=== PATIENT | female | born 1940 | race Caucasian/White ===

== ENCOUNTER 2024-01-14 12:14 | Emergency (ER) | payer MEDICARE, SELFPAY ==
[2024-01-14] VITALS (20 sets, daily range): BP systolic 159–210; BP diastolic 70–96; PULSE 61–81; TEMP 36.8; O2SAT 97–99; BMI 25.8
--- NOTE | 2024-01-14 12:26 | ECG_ITS ---
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
[2024-01-14 12:40] LABS: Basophils Absolute Auto 0.1 10^3/uL (0.0-0.1); Eosinophils Absolute Auto 0.1 10^3/uL (0.0-0.7); Eosinophils Percent Auto 1.3 % (0.9-7.0); Hemoglobin 14.5 g/dL (12.0-16.0); Immature Granulocytes Abs Auto 0.01 10^3/uL (0.00-0.03); Immature Granulocytes Pct Auto 0.1 % (0.0-0.5); Lymphocytes Absolute Auto 1.6 10^3/uL (1.2-3.8); Mean Corpuscular HGB Conc 31.5 g/dL (29.9-35.2); Mean Corpuscular Hemoglobin 29.7 pg (26.7-34.0); Mean Corpuscular Volume 94.1 fL (81.0-99.0); Mean Platelet Volume 10.4 fL (9.5-13.5); Monocytes Absolute Auto 0.4 10^3/uL (0.3-0.8); Monocytes Percent Auto 6.6 % (1.7-12.0); Neutrophils Absolute Auto 4.5 10^3/uL (1.4-6.5); Platelet Count 251 10^3/uL (150-450); Red Blood Count 4.89 10^6/uL (4.20-5.40); Red Cell Distribution Width 13.2 % (11.0-15.0); White Blood Count 6.7 10^3/uL (4.0-11.0)
[2024-01-14 12:57] LABS: Alanine Aminotransferase 21 U/L (14-59); Albumin Globulin Ratio 1.1; Albumin Level 3.9 g/dL (3.4-5.0); Alkaline Phosphatase 64 U/L (46-116); Anion Gap 10.7; Aspartate Amino Transferase 16 U/L (15-37); BUN Creatinine Ratio 18.8; Bilirubin Total 0.6 mg/dL (0.2-1.0); Calcium 9.2 mg/dL (8.5-10.1); Carbon Dioxide 31.6 mmol/L (21.0-32.0); Chloride 102 mmol/L (98-107); Estimated GFR (African America >60 (>=60); Estimated GFR (Non-African Ame >60 (>=60); Globulin 3.7 g/dL; Glucose 116 mg/dL (74-106); Potassium 4.3 mmol/L (3.5-5.1); Sodium 140 mmol/L (136-145); Total Protein 7.6 g/dL (6.4-8.2); Troponin I High Sensitivity 5.7 pg/mL (4.0-51.3)
--- NOTE | 2024-01-14 13:41 | ED.GENADUL1 ---
HPI HPI - General Adult General Chief complaint: Recheck/Abnormal Lab/Rx Stated complaint: HIGH BLOOD PRESSURE Time Seen by Provider: 01/14/24 12:25 Source: patient Mode of arrival: walk-in History of Present Illness HPI narrative: The patient is 83 years old female coming to the ER to be evaluated for high blood pressure, she noted that her blood pressure has been elevated since she took hip injection almost on 31 December, the patient denies any nausea vomiting or any chest pain but she did mention having some dizziness sometimes, no upper or lower extremity weakness no other concerns the patient also denies any decreased p.o. intake nausea vomiting or any diarrhea. But she mentioned that she had at least 4 injection in her right hip because of pain. The patient mentioned that she does not usually go to her primary care doctor regularly and the last time she went to a fair to measure her blood pressure a year ago she did have some elevated blood pressure. Although her daughter at the bedside mentioned that sometimes she runs low Related Data Previous Rx's ?Medication ?Instructions ?Recorded amlodipine 2.5 mg tablet 2.5 mg PO DAILY #7 tabs 01/14/24 Allergies Allergy/AdvReac Type Severity Reaction Status Date / Time No Known Drug Allergies Allergy Verified 01/14/24 12:23 Opioid HPI Opioid Management Most Recent Opioid Data: No Data to Display Review of Systems ROS Status of ROS 10 or more systems reviewed and unremarkable except as noted in history and below Exam Narrative Exam Narrative: Nurses notes and vital signs reviewed and patient is not hypoxic. General: Well-appearing and in no apparent distress. Skin: Warm, dry, no pallor noted. No rash. Head: Normocephalic, atraumatic. Neck: Supple, non-tender. Eye: Pupils are equal, round and EOMI. No scleral icterus. Ears, Nose, Mouth, and Throat: TM are clear, no nasal mucosal hypertrophy. Oral mucosa is moist, no posterior oropharynx erythema, uvula is mid-line Cardiovascular: Regular Rate and Rhythm without murmur, gallop or rub. Respiratory: No accessory muscle use or respiratory distress. Lungs are clear to auscultation, no wheezing, rales or rhonchi Chest Wall: no tenderness Back: No midline thoracic or lumbar vertebral tenderness. No CVA tenderness Musculoskeletal: normal ROM, no calf or popliteal tenderness, no lower extremity edema/swelling GI: Abdomen is soft, non-distended. Normal bowel sounds. No masses appreciated. No tenderness to palpation. No rebound, guarding, or rigidity noted. Neurological: A&O x4. No cranial nerve dysfunction observed. No truncal ataxia. Moves all extremities. Sensation intact. Psychiatric: Cooperative and interactive. Normal mood and affect. Constitutional Vital Signs, click to edit/add: Last Vital Signs Temp 98.2 F 01/14/24 12:19 Pulse 67 01/14/24 13:07 Resp 18 01/14/24 12:19 BP 163/75 H 01/14/24 13:07 Pulse Ox 97 01/14/24 12:19 O2 Del Method Room Air 01/14/24 12:19 Course Vital Signs Vital signs: Vital Signs Temperature 98.2 F 01/14/24 12:19 Pulse Rate 81 01/14/24 12:19 Respiratory Rate 18 01/14/24 12:19 Blood Pressure 198/82 H 01/14/24 12:19 Pulse Oximetry 97 01/14/24 12:19 Oxygen Delivery Method Room Air 01/14/24 12:19 Temperature 98.2 F 01/14/24 12:19 Pulse Rate 67 01/14/24 13:07 Respiratory Rate 18 01/14/24 12:19 Blood Pressure 163/75 H 01/14/24 13:07 Pulse Oximetry 97 01/14/24 12:19 Oxygen Delivery Method Room Air 01/14/24 12:19 Medical Decision Making [facility] Narrative Medical decision making narrative: The patient EKG in the ER showing sinus rhythm with a heart rate of [address] elevation or depression The patient CBC and chemistry showed no acute significant pathology Orthostatic showed no acute pathology and the patient is not having any dizziness in the ER It was noted that the patient had multiple reading since at least the last 3 weeks they are all in the 180 in the 190 systolic, the patient instructed to keep measuring her blood pressure at least once a day and to take her blood pressure properly She is to hydrate very well The patient will be started on amlodipine 2.5 mg daily and she will keep a track of her blood pressure medication readings, the patient also will follow-up with her primary care doctor within a week. In case of any detected side effect of the blood pressure medication including dizziness the patient to stop the medication and follow-up with us or the primary care The patient is to follow up with primary care physician in next 2-3 days or to return to the emergency department should any of the signs or symptoms worsen or new symptoms develop. The patient agrees with the following Diagnosis and Treatment plan and the patient will be discharged home. Lab Data Labs: Lab Results 01/14/24 Range/Units 12:34 WBC 6.7 (4.0-11.0) 10^3/uL RBC 4.89 (4.20-5.40) 10^6/uL Hgb 14.5 (12.0-16.0) g/dL Hct 46.0 (36.0-48.0) % MCV 94.1 (81.0-99.0) fL MCH 29.7 (26.7-34.0) pg MCHC 31.5 (29.9-35.2) g/dL RDW 13.2 (11.0-15.0) % Plt Count 251 (150-450) 10^3/uL MPV 10.4 (9.5-13.5) fL Neut % (Auto) 67.0 (43.0-75.0) % Lymph % (Auto) 24.0 (20.5-60.0) % [place] % (Auto) 6.6 (1.7-12.0) % Eos % (Auto) 1.3 (0.9-7.0) % Baso % (Auto) 1.0 (0.2-2.0) % Neut # (Auto) 4.5 (1.4-6.5) 10^3/uL Lymph # (Auto) 1.6 (1.2-3.8) 10^3/uL [place] # (Auto) 0.4 (0.3-0.8) 10^3/uL Eos # (Auto) 0.1 (0.0-0.7) 10^3/uL Baso # (Auto) 0.1 (0.0-0.1) 10^3/uL Abs Immat Gran (auto) 0.01 (0.00-0.03) 10^3/uL Imm/Tot Granulo (auto) 0.1 (0.0-0.5) % Sodium 140 (136-145) mmol/L Potassium 4.3 (3.5-5.1) mmol/L Chloride 102 (98-107) mmol/L Carbon Dioxide 31.6 (21.0-32.0) mmol/L Anion Gap 10.7 BUN 16.0 (7.0-18.0) mg/dL Creatinine 0.85 (0.55-1.02) mg/dL Est GFR ( Amer) >60 (>=60) Est GFR (Non-Af Amer) >60 (>=60) BUN/Creatinine Ratio 18.8 Glucose 116 H (74-106) mg/dL Calcium 9.2 (8.5-10.1) mg/dL Total Bilirubin 0.6 (0.2-1.0) mg/dL AST 16 (15-37) U/L ALT 21 (14-59) U/L Alkaline Phosphatase 64 (46-116) U/L Troponin I High Sens 5.7 (4.0-51.3) pg/mL Total Protein 7.6 (6.4-8.2) g/dL Albumin 3.9 (3.4-5.0) g/dL Globulin 3.7 g/dL Albumin/Globulin Ratio 1.1 Discharge Plan Discharge Stand Alone Forms: Portal Instructions Chief Complaint: Recheck/Abnormal Lab/Rx Clinical Impression: Benign essential HTN Patient Disposition: Home, Self-Care Time of Disposition Decision: 13:40 Condition: Good Prescriptions / Home Meds: New amlodipine 2.5 mg tablet 2.5 mg PO DAILY Qty: 7 0RF Print Language: Setswana Instructions: Chronic Hypertension (DC) Referrals: CONCEPCIÓN DELGADO [Primary Care Provider] - 1 week
[2024-01-14] MEDS: AMLODIPINE BESYLATE 5 MG TABLET 2.5 MG PO (14:01)
== END 2024-01-14 14:19 | disposition home or self-care (01) ==
PROVIDERS: Emergency Provider Emergency Medicine; PCP Internal Medicine
DX: I10 Essential (primary) hypertension (principal)
CPT/HCPCS: 36415; 80053; 84484; 85025; 93005; 99284

== ENCOUNTER 2024-04-29 11:29 | Outpatient (OUT) | payer MEDICARE, SELFPAY ==
--- NOTE | 2024-04-29 11:42 | XR_ITS ---
[address] [address] Patient Name: TERESA SMALL MRN: [id number] date: 1940 Sex: F Assigned Patient Location: [facility] Current Patient Location: Accession/Order Number: [id number] Exam Date: 04/29/2024 11:45 Report Date: 04/30/2024 09:19 At the request of: DYLON SARMIENTO Procedure: XR wrist LT min 3V PROCEDURE: XR wrist LT min 3V COMPARISON: None. HISTORY: Left Wrist Sprain S63.502A FINDINGS: BONES:No acute fracture or dislocation. Moderate degenerative changes along the medial carpus with joint space narrowing marginal osteophyte formation SOFT TISSUES:Negative. No visible soft tissue swelling. EFFUSION:None visible. OTHER: Negative. XR/XR wrist LT min 3V IMPRESSION: Osteoarthritis with no acute fracture Electronically authenticated by: DHIRAJ NGUYEN Date: 04/30/2024 09:19
--- OUTSIDE RECORDS SUMMARY | 2024-04-29 11:52 | XMS_ITS | CCD ---
Author Organization [facility] Care Team Providers Care Sql Tech Name Role Phone Rylee Henning Unavailable DR DEJON ZHOU Primary Care Unavailable DANYEL GUERRERO Consulting Unavailable PAY ., DR BROWN Attending Unavailable PAY ., DR BROWN Admitting Unavailable LARS PAGE Consulting Unavailable VALENTINE JEROME Attending Unavailable JUSTUS, VALENTINE Admitting Unavailable DANNY, DR BEEBE Primary Care Unavailable ANGEL GARCIA Consulting Unavailable VALENTINE JEROME Consulting Unavailable Dejon Zhou MD Primary Care Provider DEJON ZHOU Primary Care Physician [phone] Angella Shoemaker Unavailable [phone] Merly, Caroline Wiley Attending Unavailable Weiss, Caroline T Referring Unavailable Weiss, Caroline T Admitting Unavailable Weiss, Caroline T Referring Unavailable Weiss, Caroline T Admitting Unavailable Weiss, Carolien T Attending Unavailable Weiss, Caroline T Admitting Unavailable Weiss, Caroline T Referring Unavailable Weiss, Caroline T Attending Unavailable Weiss, Caroline T Referring Unavailable Weiss, Caroline T Attending Unavailable Weiss, Caroline T Admitting Unavailable Weiss, Caroline T Admitting Unavailable Weiss, Caroline T Attending Unavailable Weiss, Caroline T Referring Unavailable WEISS, CAROLINE T Attending Unavailable MADALYNDHIRAJ Attending Unavailable WEISS, CAROLINE T Referring Unavailable MADALYNDHIRAJ Attending Unavailable WEISS, CAROLINE T Referring Unavailable WEISS, CAROLINE T Attending Unavailable WEISS, CAROLINE T Referring Unavailable WEISS, CAROLINE T Referring Unavailable HEMMER, DYLON Puentes Attending Unavailable WEISS, CAROLINE Wiley Attending Unavailable HEMMER, DYLON Puentes Attending Unavailable HEMMER, DYLON Puentes Attending Unavailable WEISS, CAROLINE T Referring Unavailable WEISS, CAROLINE T Attending Unavailable BLACKSTON, CLEO Wiley Attending Unavailable WEISS, CAROLINE T Referring Unavailable BLACKSTON, CLEO Wiley Attending Unavailable WEISS, CAROLINE T Referring Unavailable BLACKSTON, CLEO Wiley Attending Unavailable WEISS, CAROLINE T Referring Unavailable BLACKSTON, CLEO Wiley Attending Unavailable WEISS, CAROLINE T Referring Unavailable HEMMER, DYLON Puentes Attending Unavailable CAROLINE WEISS Attending Unavailable CAROLINE WEISS Referring Unavailable Allergies Allergy Classification Reported Allergen(s) Allergy Type Date of Onset Reaction(s) Facility (1 source) Fil[facility]-N 100 Drug allergy (disorder) 0 [facility] Repository (4 sources) Cortisone; Translations: [cortisone] Drug Allergy Lightheadedness (finding), Fatigue (finding) [facility] Comment on above: steroid cortisone in jection Medications Current Medications Medication Drug Class(es) Dates Sig (Normalized) Sig (Original) acetaminophen 325 mg oral tablet (2 sources) Start: 05-13-2020 take 2 tablets by mouth every four hours as needed for pain acetaminophen 325 mg Tab 650 mg = 2 tab(s), Oral, q4hr, PRN Pain/Fever, Refills(s) 0 Start Date: 05/13/20 Status: Ordered acetaminophen 325 mg / oxyCODONE hydrochloride 5 mg oral tablet (1 source) Opioid Agonist Start: 02-29-2024 Percocet 5 mg-325 mg oral tablet See Instructions, 40 tab(s), Refill(s) 0, 1 tab(s) Oral po q 4 prn hip surgical pain, [facility], 158.7, cm, 02/01/24 7:28:00 EDT, Height/Length Dosing, 65.7, kg, 02/01/24 7:28:00 EDT, Weight Dosing Start Date: 02/29/24 Status: Ordered amLODIPine 2.5 mg oral tablet (2 sources) Dihydropyridine Calcium Channel Quinton Start: 01-30-2024 take 1 tablet by mouth once daily amLODIPine 2.5 mg Tab 2.5 mg = 1 tab(s), Oral, Daily, High blood pressure Start Date: 01/30/24 Status: Ordered aspirin 325 mg oral tablet (1 source) Platelet Aggregation Inhibitor, Nonsteroidal Anti-inflammatory Drug Start: 02-29-2024 End: 03-30-2024 take 1 tablet by mouth once daily aspirin 325 mg Tab 325 mg = 1 tab(s), Oral, Daily, Start the day after hip surgery, X 30 day(s), # 30 tab(s), Refills(s) 0, Pharmacy: [facility], 158.7, cm, 02/01/24 7:28:00 EDT, Height/Length Dosing, 65.7, kg, 02/01/24 7:28:00 EDT, Weight Dosing Start Date: 02/29/24 Stop Date: 03/30/24 Status: Ordered cephalexin 500 mg oral capsule (5 sources) Cephalosporin Antibacterial Start: 02-29-2024 End: 03-05-2024 take 1 capsule by mouth four times daily Keflex 500 mg Cap 500 mg = 1 cap(s), Oral, QID, Start the day after hip surgery, X 5 day(s), # 20 cap(s), Refills(s) 0, Pharmacy: [facility], 158.7, cm, 02/01/24 7:28:00 EDT, Height/Length Dosing, 65.7, kg, 02/01/24 7:28:00 EDT, Weight Dosing Start Date: 02/29/24 Stop Date: 03/05/24 Status: Ordered Start: 12-01-2022 take 1 capsule by [facility] every six hours cephalexin (Keflex) 500 MG capsule 500 mg every 6 (six) hours. 0 12/01/2022 Active docusate sodium 100 mg oral capsule (1 source) Start: 02-29-2024 take 1 capsule by mouth twice daily Colace 100 mg Cap 100 mg = 1 cap(s), Oral, BID, # 20 cap(s), Refills(s) 0, Pharmacy: [facility], 158.7, cm, 02/01/24 7:28:00 EDT, Height/Length Dosing, 65.7, kg, 02/01/24 7:28:00 EDT, Weight Dosing Start Date: 02/29/24 Status: Ordered magnesium hydroxide 80 mg/ml oral suspension (1 source) Start: 05-13-2020 take 2.4 g by mouth twice daily magnesium hydroxide 8% Oral Susp 30 mL 2.4 gram, 30 mL, Oral, BID Constipation, Refill(s) 0 Start Date: 05/13/20 Status: Ordered melatonin 3 mg oral tablet (1 source) take 1 tablet by mouth once daily at bedtime as needed Melatonin 3 MG 1 tablet at bedtime as needed with food Orally Once a day Active meloxicam 15 mg oral tablet (4 sources) Nonsteroidal Anti-inflammatory Drug Start: 09-26-2023 End: 09-25-2024 take 1 tablet by mouth once daily meloxicam 15 mg Tab 15 mg = 1 tab(s), Oral, Daily, # 30 tab(s), Refills(s) 0, Pain Start Date: 01/01/24 Status: Ordered Problems Active Problems Problem Classification Problem Date Documented Date Episodic/Chronic Diverticulosis and diverticulitis (1 source) Diverticulosis of large intestine without perforation or abscess without bleeding; Translations: [DVRTCLOS LG INT NO PERF/ABSC W/O BL] Onset: 12-21-2022 Chronic Essential hypertension (2 sources) Hypertensive disorder 01-30-2024 Chronic Genitourinary symptoms and ill-defined conditions (9 sources) Gross hematuria; Translations: [Nocturia] Onset: 12-15-2022 Episodic Osteoarthritis (6 sources) Osteoarthritis; Translations: [Unspecified osteoarthritis, unspecified site] Onset: 12-28-2023 09-26-2023 Chronic Other connective tissue disease (4 sources) Pain in left lower leg; Translations: [PAIN IN LEFT LOWER LEG] Onset: 12-02-2022 Episodic Other inflammatory condition of skin (4 sources) Rosacea; Translations: [Rosacea, unspecified] Onset: 12-27-2022 12-27-2022 Chronic Other nervous system disorders (3 sources) Carpal tunnel syndrome 05-06-2020 Chronic Other non-traumatic joint disorders (1 source) Pain in right hip joint; Translations: [Pain in right hip] 09-23-2023 Episodic Residual codes; unclassified (3 sources) Dyssomnia 03-10-2015 Episodic Spondylosis; intervertebral disc disorders; other back problems (5 sources) Neck pain; Translations: [Cervicalgia] Onset: 03-09-2023 03-09-2023 Episodic Thyroid disorders (4 sources) Non-toxic multinodular goiter; Translations: [Goiter, multinodular, nontoxic] 05-06-2020 Chronic Past or Other Problems Problem Classification Problem Date Documented Da te Episodic/Chronic Conditions associated with dizziness or vertigo (4 sources) Benign paroxysmal positional vertigo; Translations: [Benign paroxysmal vertigo, right ear] Onset: 03-09-2023 03-09-2023 Episodic Diabetes mellitus without complication (1 source) Impaired glucose tolerance test; Translations: [IGT (impaired glucose tolerance)] Episodic Immunizations and screening for infectious disease (1 source) Contact with and (suspected) exposure to other viral communicable diseases; Translations: [Contact with and (suspected) exposure to other viral communicable diseases Z20.828] Onset: 06-02-2021 Resolved: 06-02-2021 Episodic Other connective tissue disease (4 sources) Spasm of cervical paraspinous muscle; Translations: [Other muscle spasm] Onset: 03-09-2023 03-09-2023 Episodic Other nervous system disorders (4 sources) Unsteady when standing; Translations: [Unsteadiness on feet] Onset: 03-09-2023 03-09-2023 Episodic Other upper respiratory infections (1 source) Acute upper respiratory infection, unspecified; Translations: [Viral upper respiratory illness J06.9] Onset: 06-02-2021 Resolved: 06-02-2021 Episodic Results Test Name Value Interpretation Reference Range Facility Operative Reporton Operative Report Operative Report SURGERY DATE: 03/04/2024 PREOPERATIVE DIAGNOSIS: 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 ESTIMATED BLOOD LOSS: 100 cc SPECIMEN: Femoral head and reamings IMPLANTS UTILIZED: The DePuy Jayuya #3 Press-Fit stem, a Sector Gription 50 Press-Fit cup, two 20 mm superior screws, a 28+5 head, and a 50 x 28 liner lipped HISTORY AND INDICATIONS: Teresa is an 83-year-old female with progressive right hip pain that has been recalcitrant to conservative care. Please see office notes and History and Physical. Sites marked preoperatively, all questions answered preoperatively, antibiotics provided weight based per protocol. The pros, cons, risks, benefits, and reasonable expectations were thoroughly reviewed, consent form signed and witnessed. X-rays support grade 4 [id number] disease. She has activity of daily living and night disruption, and she has tried an exhaustive course of conservative management. She has a prior history of contralateral left hip replacement. Consent form signed and witnessed. Antibiotics provided weight based per protocol. PROCEDURE: Teresa was taken to the Operating Room and placed in supine position. Anesthesia was provided. She was placed in the left lateral decubitus position. All bony prominences were padded on the Gelfoam pegboard table with appropriate axillary roll. The right hip and leg were prepped and draped in sterile fashion. A time-out procedure occurred consistent with the consent form, History and Physical, preoperative marked site. Landmarks were identified. Once time-out was confirmed, a posterolateral incision was made of approximately 3 . The fascia was split and a self-retaining retractor was applied. Piriformis was tagged and released and the capsule was split with a posterolateral approach. The head was dislocated with severe endstage degenerative changes. A fresh cut was made one fingerbreadth above the lesser trochanter, and the head was removed. Acetabulum was exposed. Peripheral osteophytes and labrum were removed. Reaming started at a 44 up to a 49 with appropriate medialization and position. Trial cup was placed with good fit, fill, position, and alignment. Exparel 20 cc was injected along the acetabulum. A size 50 Sector cup was impacted in place with appropriate version and tilt, and two 20 mm screws were placed superiorly. Trial lipped liner was applied. Attention was then directed to the proximal femur. Canal sounding, reaming, and lateralization were performed. Broaching was performed up to a 3. Trial components were placed with good fit, fill, position, and alignment. After copious irrigation the trial components were placed with good stability. All trial components were removed. The liner was impacted in place. The Jayuya stem was impacted in place and it was retrialed. The Gutierrez taper was cleansed, dried, and a 28+5 metallic head was impacted, reduced, and taken through arc of motion and deemed stable. After copious irrigation two 2.5 mm drill bit holes were placed in the greater trochanter for repair of the capsule and external rotator. Capsule was closed with 0 Vicryl suture. Sfosan-zdpqhiq-tjjk technique was performed with the Hekristoferon suture passer. Anatomic repair was achieved. Remaining 80 cc of Exparel was injected along the fascia and subcutaneous tissues. Tranexamic acid 2 g was placed subfascially. The fascial layer was closed with #2 Quill suture, 2-0 Quill suture closed the subcutaneous tissues, and a 2-0 Monoderm intracuticular suture was placed with liquid adhesive glue. An 8 Mepilex dressing with abduction pillow was applied. The patient was awakened from anesthesia and transferred supine to the Recovery Room in stable and satisfactory condition. CASE: Clean and elective COUNTS: Sponge and needle count correct SPECIMEN: Bone PATIENT CONDITION: Satisfactory Ellis Stephens Dictated: 03/04/2024 [id number] Transcribed: 03/04/[address] [facility] Comment on above: Result Comment: Elec tronically Signed By: Caroline Weiss DO\.br\Date and Time Signed: 03/07/24 12:44 EDT Surgical Pathology Reporton 03-06-2024 Surgical Pathology Report [facility] [address] [place] [address]- Surgical Pathology Report Collected Date/Time: 03/04/2024 09:01 EDT Pathologist: Vaihd Finnegan MD Received Date/Time: 03/04/2024 11:03 EDT Caroline Weiss DO, DO, Michael T 07 Surgical Pathology Report - 03/06/2024 13:57 EDT - Auth (Verified) Final Diagnosis RIGHT HIP, BONE AND SOFT TISSUE, RIGHT TOTAL HIP ARTHROPLASTY: - Right femoral head with cystic degeneration consistent with osteoarthritis. (Electronic Signature) Yan. 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 The articular surface is eroded with osteophyte formation present. Neck margin is smooth; however, contains an area of focal softening measuring up to 1.5 cm. Near the neck margin there is a round cystic lesion measuring 1 x 1 x 1 cm. The outer surface is partially smooth and has a dull shine. It is trisected and has a buck/pink smooth homogenous appearance. Cross-sectioning through the femoral head contains a cystic area measuring 0.5 x 0.5 cm and is adjacent to the articular surface. Also received in the container are multiple fragments of buck/pink/light red/yellow bone and soft tissue measuring in aggregate 5 x 4.5 x 2.5 cm. A solar manufacturer's representative sections are submitted in a total of three cassettes as follows: 1-2: Soft tissue 3: Bone after decalcification (DC) DC:[facility] Microscopic Description Microscopic examination performed unless gross only specified. Normal [facility] Comment on above: Performed By: #### [id number] #### [facility] [address] [place] [address] Main OR Intraoperative Recor don 03-05-2024 Main OR Intraoperative Record Main OR Intraoperative Record IntraOp Document Type FT Summary Primary Physician: Caroline Weiss DO Finalized Date/Time: 03/05/24 14:02:50 Pt. Name: TERESA SMALL D.O.B./Sex: 1940 Female Med Rec #: [id number] Physician: Caroline Weiss DO Financial #: [id number] Pt. Type: A Room/Bed: [place] [address] Admit/Disch: 03/04/24 05:56:12 - 03/04/24 15:10:00 Institution: Case Times FT Entry 1 Patient Times In Room 03/04/24 08:23:00 Out Room 03/04/24 09:38:00 Procedure Times Start 03/04/24 08:46:00 Stop 03/04/24 09:33:00 Anesthesia Times Start 03/04/24 08:23:00 Stop 03/04/24 09:38:00 Block Timeout w03/04/24 07:54:00 Anesthesia Last Modified By: Abhay Schultz Ii 03/04/24 09:42:00 General Comments: BLOCK DONE BY MUNDO RODRIGUES WITH DR. [employer] INS[employer] BILLER AND EMILY WALLIS ASSISTING. PATIENT VITAL SIGNS HR 74 BPM AND SP02 99%. /EMILY HENLEY SPINAL ANESTHESIA DONE AT 0829 BY MUNDO RODRIGUES. /EMILY HENLEY 03/05/24 Chart opened to review and send charges [facility] Case Attendance FT Entry 1 Entry 2 Entry 3 Case Attendee Theo RIVERO CRNA, Caroline Broderick DO, CST, Chelo Mccabe Role Performed MUNDO Surgeon - Primary MEDICATION MANAGER/SA Time In 03/04/24 08:23:00 03/04/24 08:23:00 03/04/24 08:23:00 Time Out 03/04/24 09:38:00 03/04/24 09:21:00 03/04/24 09:38:00 Procedure HIP TOTAL HIP TOTAL HIP TOTAL ARTHROPLASTY(Right) ARTHROPLASTY(Right) ARTHROPLASTY(Right) Comments DR. HUMPH[employer]ES MEDICAL INSURANCE BILLER ASSIST Last Modified By: Abhay Schultz Ii F Antoine Alfons Ii F Antoine Alfons Ii F 03/04/24 09:42:04 03/04/24 09:42:04 03/04/24 09:42:04 Entry 4 Entry 5 Entry 6 Case Attendee Dennis Romano CST, Adam A Letrondo, Alfons Ii F Role Performed Scrub - Primary Staff - Other Keller Machine Operator - Primary Time In 03/04/24 08:23:00 03/04/24 08:23:00 03/04/24 08:23:00 Time Out 03/04/24 09:38:00 03/04/24 09:38:00 03/04/24 09:38:00 Procedure HIP TOTAL HIP TOTAL HIP TOTAL ARTHROPLASTY(Right) ARTHROPLASTY(Right) ARTHROPLASTY(Right) Comments 2ND SCRUB Last Modified By: Abhay Schultz Ii F Abhay Schultz Ii F Wu Schultzons Ii F 03/04/24 09:42:04 03/04/24 09:42:04 03/04/24 09:42:04 Entry 7 Case Attendee Fabio Valadez CST Role Performed Staff - Other Time In 03/04/24 08:23:00 Time Out 03/04/24 09:21:00 Procedure HIP TOTAL ARTHROPLASTY(Right) Comments 3RD SCRUB Last Modified By: Abhay Schultz Ii F 03/04/24 09:42:04 General Comments: EMERY LOVELL FROM [employer] IS IN ATTENDANCE. /EMILY HENLEYscience technician Protocols FT Pre-Care Text: Implements protective measures prior to operative or invasive procedure, confirms identity before the operative or invasive procedure, verifies operative procedure, surgical site, and laterality Entry 1 Procedure(s) HIP TOTAL Patient Identity Birthday, Blood Band, ARTHROPLASTY(Right) Verified (select at ID Band Check, Patient least 2): Participation Consents / H and P Anesthesia Consent, Operative Site Present Verified H&P, Surgery/Procedure Marking Verified Consent Surgical Site Yes Laterality Verified Yes Verified Procedure Verified Yes Correct Patient Yes Position Verified Availability Equipment, Implant, Prep Dry No Verified (If Medication, X-ray Applicable) PreOp Antibiotic Yes Time Out Theo RIVERO, MUNDO, Queen Zee Mccabe, Caroline Weiss DO, Jolene DIAZ, Chelo Colin, Rosalina DIAZ, Simon Collins Adam A, Abhay Schultz Ii Time Out Complete 03/04/24 08:35:00 Outcomes Met? Yes Last Modified By: Abhay Schultz Ii 03/04/24 08:53:07 Post-Care Text: The patient is free from signs and symptoms of injury caused by extraneous objects Allergy Information FT Pre-Care Text: Verifies allergies Entry 1 Allergies Reviewed? Yes Allergies Reviewed Self/Patient With Outcomes Met? Yes Last Modified By: Abhay Schultz Ii 03/04/24 08:14:04 Post-Care Text: The patient received appropriate medication(s) safely administered during the perioperative period Surgical Procedures FT Entry 1 Procedure Description Procedure HIP TOTAL ARTHROPLASTY Modifiers Right Surgeon Description RIGHT TOTAL HIP ARTHROPLASTY Primary Procedure Yes Primary Surgeon Caroline Weiss DO Start 03/04/24 08:46:00 Stop 03/04/24 09:33:00 Anesthesia Type General Surgical Service Orthopedics Wound Class 1 - Clean Last Modified By: Abhay Schultz Ii 03/04/24 09:42:09 General Case Data FT Pre-Care Text: Classifies surgical wound, implements aseptic technique, initiates traffic control Entry 1 Case Information OR OR 7 FT Case Level Level 6 Wound Class 1 - Clean Specialty Orthopedics ASA Class 2 Preop Diagnosis RIGHT HIP OA Postop Same As Preop Yes Postop Diagnosis RIGHT HIP OA Outcomes Met? Yes Last Modified By: Abhay Schultz Ii 03/04/24 08:53:15 Post-Care Text: The patient is free from signs and symptoms of infection Skin Assessment (Pre Procedure) FT Pre-Care Text: Imple (more content not included)... Normal [facility] ABO/Rhon 03-04-2024 ABO/Rh Positive Invalid Interpretation Code [facility] Comment on above: Performed By: #### [id number] #### [facility] [address] [place] [address] ABO/Rh History Checkon 03-04 ABO/Rh History Check Verified Hx Blood Type Normal [facility] Comment on above: Performed By: #### [id number] #### [facility] [address] [place] [address] ABSCon 03-04-2024 ABSC Gel Interp Negative Normal [facility] Comment on above: Performed By: #### [id number] #### [facility] [address] [place] [address] BLOOD BANKOrdered By: Rain Foster on 03-04-2024 ABO/Rh Interp Positive Invalid Interpretation Code [facility] BB Subsection ABSC Gel Interp Negative (03/04/24 7:11 AM) Normal [facility] BB Subsection Blood Bank ID#on 03-04-2024 BBID# [id number] Invalid Interpretation Code [facility] Comment on above: Performed By: #### 1 [id number] #### [facility] [address] [place] [address] Discharge Instructionson Discharge Instructions Discharge Instructions TERESA SMALL :1940 Visit Date:03/04/2024 Inpatient Discharge Instructions Your Care Team Admitting Physician - Caroline Weiss DO Referring Physician - Caroline Weiss DO Reason for Your Visit RIGHT HIP OA Your Diagnosis Osteoarthritis of right hip Tests Performed Pathology Tissue Exam -- Results Pending -- XR Hip 1 View Right + Pelvis -- Results Pending -- Please visit your patient portal for your results or contact your primary care physician. This Is Your Medications List acetaminophen-oxycod one (Percocet 5 mg-325 mg oral tablet) amlodipine (amLODIPine 2.5 mg Tab) aspirin (aspirin 325 mg Tab) cephalexin (Keflex 500 mg Cap) docusate (Colace 100 mg Cap) Procedure History Arthroplasty of the hip (03/04/2024), Hemiarthroplasty of left shoulder (05/12/2020), Carpal tunnel release (12/09/2015), left total hip arthroplasty, press-fit, metal on polyethylene construct (03/24/2015), Cholecystectomy, D&C - Dilatation and curettage, lumbar laminectomyL4-5. What to do next Instructions From Your Doctor Event Name Event Result Discharge Instructions Freetext Pillow between legs in bed for 4 weeks. Discharge Activity Ambulate as tolerated, Arrange for a responsible adult supervision for 24 hours, Expect mild pain, Expect minimal amount of drainage and/or bleeding, Do not lift more than 5 lbs Discharge Restrictions No driving, Do not operate machinery or tools, Do not make important decisions for 24 hours, Do not drink alcoholic beverages for 24 hours Discharge Diet(s) Regular, Drink liquids and eat a light meal Call Your Doctor For Persistent or heavy bleeding, Temperature above 101.5 degrees, Redness, swelling, or pus at operative site, Severe pain at the operative site, Persistent vomiting Wound Care Remove dressing as instructed Remove Dressing On 10 Discharge Instructions Discharge Instructions New Follow Up Appointments after Discharge Follow Up with MARIANA Stephens When: 04/02/2024 10:30 AM EDT Comments: Keep scheduled appointment Where: [address] [place] [phone]- Business (1) Medications What How Much When Why Instructions Next Dose Unchanged acetaminophen-oxycod one (Percocet 5 mg-325 mg oral tablet) See instructions Osteoarthritis of right hip 1 tab(s) Oral po q 4 prn hip surgical pain Pickup at [facility] Unchanged amlodipine (amLODIPine 2.5 mg Tab) 1 Tablets By Mouth Every day Unchanged aspirin (aspirin 325 mg Tab) 1 Tablets By Mouth Every day Duration: 30 Days Start the day after hip surgery Pickup at [facility] Unchanged cephalexin (Keflex 500 mg Cap) 1 Capsules By Mouth 4 times a day Duration: 5 Days Start the day after hip surgery Pickup at [facility] Unchanged docusate (Colace 100 mg Cap) 1 Capsules By Mouth 2 times a day Pickup at [facility] Pharmacy Information [facility]: [address], [place] [id number] [phone] Allergies cortisone (Light headed, Fatigue, High blood pressure) Devices Implanted/Removed This Visit Notice: You have devices implanted this visit that may not be MRI compatible. Implanted HIP TOTAL ARTHROPLASTY Hip R ARTICUL/MALINDA FEMORAL HEAD 03/04/2024 PINNACLE CANCELLOUS BONE SCREW 03/04/2024 PINNACLE CANCELLOUS BONE SCREW 03/04/2024 PINNACLE GRIPTION ACETABULAR SHELL SECTOR 03/04/2024 PINNACLE MARATHON POLYEHTYLENE ACETABULAR LINER LIPPED 03/04/2024 SUMMIT FEMORAL STEM 03/04/2024 Education Materials How to Use an Incentive Spirometer An incentive spirometer is a tool that measures how well you are filling your lungs with each breath. Learning to take long, deep breaths using this tool can help you keep your lungs clear and active. This may help to reverse or lessen your chance of developing breathing (pulmonary) problems, especially infection. You may be asked to use a spirometer: ? After a surgery. ? If you have a lung problem or a history of smoking. ? After a long period of time when you have been unable to move or be active. If the spirometer includes an indicator to show the highest number that you have reached, your health care provider or respiratory therapist will help you set a goal. Keep a log of your progress as told by your health care provider. What are the risks? ? Breathing too quickly may cause dizziness or cause you to pass out. Take your time so you do not get dizzy or light-headed. ? If you are in pain, you may need to take pain medicine before doing incentive spirometry. It is harder to take a deep breath if you are having pain. How to use your incentive spirometer 1. Sit up on the edge of your bed or on a chair. 2. Hold the incentive spirometer so that it is in an upright position. 3. Before you use the sp (more content not included)... Normal [facility] Comment on above: Result Comment: Elec tronically Signed By: Ventura DIAZ, Cat Puentes\.br\Date and Time Signed: 03/04/24 10:34 EDT Main OR PACU I Recordon 02-12 Main OR PACU I Record Main OR PACU I Record PACU Phase I Document Type FT Summary Primary Physician: Caroline Weiss DO Finalized Date/Time: 03/04/24 10:41:30 Pt. Name: TERESA SMALL./Sex: 1940 Female Med Rec #: [id number] Physician: Caroline Weiss DO Financial #: [id number] Pt. Type: A Room/Bed: [facility] Admit/Disch: 03/04/24 05:56:12 - Institution: Case Times PACU I FT Pre-Care Text: Identifies barriers to communication and implements measures to provide psychological support Develops individualized plan of care, and ensures continuity of care Maintains patient's dignity and privacy, and maintains patient confidentiality Identifies and reports philosophical, cultural, and spiritual beliefs and values Identifies individual values and wishes concerning care Implements aseptic technique, and administers prescribed antibiotic therapy and immunizing agents as ordered Evaluates postoperative tissue perfusion Implements thermoregulation measures, and monitors body temperature Evaluates postoperative respiratory status Evaluates postoperative cardiac status Evaluates postoperative neurological status Assesses pain control, collaborated in initiating patient-controlled analgesia and implements alternative methods of pain control Verifies allergies, administers prescribed medications and solutions, evaluates response to medications Entry 1 In PACU I 03/04/24 09:40:00 Discharge from PACU 03/04/24 10:10:00 I Outcomes Met? Yes Last Modified By: Sneha Ryan RN 03/04/24 10:41:18 Post-Care Text: The patient demonstrates knowledge of the expected response to the operative or invasive procedure The patient's care is consistent with the individualized perioperative plan of care The patient's right to privacy is maintained The patient's value system, lifestyle, ethnicity, and culture are considered, respected, and incorporated into the perioperative plan of care The patient participates in decisions affecting his or her perioperative plan of care The patient is free from signs and symptoms of infection The patient has wound/tissue perfusion consistent with or improved from baseline levels established preoperatively The patient is at or returning to normothermia at the conclusion of the immediate postoperative period The patient's respiratory function is consistent with or improved from baseline levels established preoperatively The patient's cardiovascular status is consistent with or improved from baseline levels established preoperatively The patient's cardiovascular status is consistent with or improved from baseline levels established preoperatively The patient demonstrates and/or reports adequate pain control throughout the perioperative period The patient received appropriate medication(s), safely administered during the perioperative period Acuity Level PACU I FT Entry 1 Start Time 03/04/24 09:40:00 Stop Time 03/04/24 10:10:00 Acuity Level Acuity Level I Last Modified By: Sneha Ryan RN 03/04/24 10:41:27 Finalized By: Sneha Ryan RN Document Signatures Signed By: Sneha Ryan RN 03/04/24 10:[address] [facility] Main OR PACU II Recordon Main OR PACU II Record Main OR PACU II Record PACU Phase II Document Type FT Summary Primary Physician: Caroline Weiss DO Finalized Date/Time: 03/04/24 15:25:34 Pt. Name: TERESA SMALL/Sex: 1940 Female Med Rec #: [id number] Physician: Caroline Weiss DO Financial #: [id number] Pt. Type: A Room/Bed: 12/12 Admit/Disch: 03/04/24 05:56:12 - Institution: Case Times PACU II FT Pre-Care Text: Identifies barriers to communication and implements measures to provide psychological support and determines knowledge level Develops individualized plan of care, and ensures continuity of care Maintains patient's dignity and privacy, and maintains patient confidentiality Identifies and reports philosophical, cultural, and spiritual beliefs and values Identifies individual values and wishes concerning care administers prescribed antibiotic therapy and immunizing agents as ordered, Evaluates postoperative tissue perfusion Implements thermoregulation measures, and monitors body temperature Evaluates postoperative respiratory status Evaluates postoperative cardiac status Evaluates postoperative neurological status Assesses pain control, collaborated in initiating patient-controlled analgesia and implements alternative methods of pain control Verifies allergies, administers prescribed medications and solutions, evaluates response to medications Entry 1 In PACU II 03/04/24 10:10:00 Discharge from PACU 03/04/24 15:10:00 II Outcomes Met? Yes Last Modified By: Cat Whitehead RN 03/04/24 15:25:31 Post-Care Text: The patient demonstrates knowledge of the expected response to the operative or invasive procedure The patient's care is consistent with the individualized perioperative plan of care The patient's right to privacy is maintained The patient's value system, lifestyle, ethnicity, and culture are considered, respected, and incorporated into the perioperative plan of care The patient participates in decisions affecting his or her perioperative plan of care. The patient is free from signs and symptoms of infection The patient has wound/tissue perfusion consistent with or improved from baseline levels established preoperatively The patient is at or returning to normothermia at the conclusion of the immediate postoperative period The patient's respiratory function is consistent with or improved from baseline levels established preoperatively The patient's cardiovascular status is consistent with or improved from baseline levels established preoperatively The patient's neurological status is consistent with or improved from baseline levels established preoperatively The patient demonstrates and/or reports adequate pain control throughout the perioperative period The patient received appropriate medication(s), safely administered during the perioperative period Finalized By: Cat Whitehead RN Document Signatures Signed By: Cat Whitehead RN 03/04/24 15:[address] [facility] Main OR Preoperative Recordo n 03-04-2024 Main OR Preoperative Record Main OR Preoperative Record PreOp Document Type FT Summary Primary Physician: Caroline Weiss DO Finalized Date/Time: 03/04/24 08:48:19 Pt. Name: SMALLTERESA/Sex: 1940 Female Med Rec #: [id number] Physician: Caroline Weiss DO Financial #: [id number] Pt. Type: A Room/Bed: [facility] Admit/Disch: 03/04/24 05:56:12 - Institution: Case Times PreOp FT Pre-Care Text: Verifies consent for planned procedure, identifies individual values and wishes concerning care, includes family members in perioperative teaching Entry 1 Patient Times. In Pre Surgery 03/04/24 06:00:00 Out Pre Surgery 03/04/24 08:21:00 Outcomes Met? Yes Last Modified By: Abhay Schultz Ii 03/04/24 08:48:18 Post-Care Text: The patient participates in decisions affecting his or her perioperative plan of care Finalized By: Abhay Schultz Ii Document Signatures Signed By: Abhay Schultz Ii 03/04/24 08:[address] [facility] XR Hip 1 View Right + Pelvis on 03-04-2024 XR Hip 1 View Right + Pelvis Exam Date/Time: 03/04/2024 10:08 EDT Reason for Exam: Post Op Report IMPRESSION: Status post right total hip arthroplasty CLINICAL HISTORY: Post Op COMPARISONS: NONE AVAILABLE FINDINGS: 2 portable views are submitted. Patient status post right total hip arthroplasty. Satisfactory alignment. No dislocation. No periimplant fracture. Ordering Provider: Caroline Weiss FINAL REPORT Dictated: 03/04/2024 3:25 pm Kiran Baron Signed (Electronic Signature): 03/04/2024 3:25 pm Signed by: Kiran Baron Transcribed by: FRENCH Technologist: JUDI Technical Comments Radiation Dose: Ka,r in mGy = . DAP = . Normal [facility] Inpatient Patient Summaryon 02-29-2024 Inpatient Patient Summary Inpatient Patient Summary [address] [address] [facility] Clinical Discharge Instructions PERSON INFORMATION Name: TERESA SMALL PHYSICIANS Admitting Physician: Caroline Weiss DO Attending Physician: Caroline Weiss DO PCP: DEJON ZHOU MD Discharge Diagnosis: Osteoarthritis of right hip Comment: PATIENT EDUCATION INFORMATION Instructions: Merly - Hip Replacement Arthroplasty (CUSTOM) Medication Leaflets: Follow up: With: Address: When: Caroline Weiss [address] [place] [id number] [facility] () Comments: Keep scheduled appointment Type Location Start [facility] Surgery [facility] Surgical Services 03/04/2024 8:45 AM 03/04/2024 9:45 AM Confirmed MEDICATION LIST Medications to Continue with No Changes Other Medications acetaminophen (acetaminophen 325 mg Tab) 2 Tablets By Mouth every 4 hours as needed Pain/Fever. amlodipine (amLODIPine 2.5 mg Tab) 1 Tablets By Mouth every day. Comment: Normal [facility] Outpatient Surgery Discharge Instructionon 02-29-2024 Outpatient Surgery Discharge Instruction Outpatient Surgery Discharge Instruction [address] [address] Patient Discharge Instructions PERSON INFORMATION Name: JS SMALLNICristi Subramanian Date of : 1940 Current Date: 02/29/2024 17:27:09 PHYSICIANS Admitting Physician: Caroline Weiss DO Discharge Diagnosis: Osteoarthritis of right hip TERESA SMALL has been given the following list of follow-up instructions, prescriptions, and patient education materials: PATIENT FOLLOW-UP INFORMATION Diet: Regular, Drink liquids and eat a light meal Discharge Activity: Ambulate as tolerated, Arrange for a responsible adult supervision for 24 hours, Expect mild pain, Expect minimal amount of drainage and/or bleeding, Do not lift more than 5 lbs Discharge Restrictions: No driving, Do not operate machinery or tools, Do not make important decisions for 24 hours, Do not drink alcoholic beverages for 24 hours Call Your Doctor For: Persistent or heavy bleeding, Temperature above 101.5 degrees, Redness, swelling, or pus at operative site, Severe pain at the operative site, Persistent vomiting Wound Care Instructions: Remove dressing as instructed Remove Your Dressing In 10 Days Additional Instructions: Pillow between legs in bed for 4 weeks. IF UNABLE TO CONTACT YOUR PHYSICIAN AND YOU FEEL IT IS AN EMERGENCY, GO TO THE NEAREST EMERGENCY ROOM OR CALL 911 GEOVANNY Lebron BONNIE J, have received the attached patient education materials/instructio ns and have verbalized understanding: May we do a follow up call? Yes No I was present when discharge instructions were given Patient Signature Date Clinican/Nurse Signature Date Follow up: With: Address: When: Caroline Weiss [address] [place], [place] [id number] [facility] (1) Comments: Keep scheduled appointment Type Location Start [facility] Surgery [facility] Surgical Services 03/04/2024 8:45 AM 03/04/2024 9:45 AM Confirmed Pharmacy Information: You may receive a survey from [employer] asking you to rate your care experience. Your feedback is important and will help us understand what we do well and how we can improve the quality of care we provide to you, your loved ones and our community. It?s an honor to serve you. Thank you for choosing [facility] HERE ARE THE MEDICATION CHANGES THAT OCCURRED DURING YOUR HOSPITAL STAY Medications to Continue with No Changes Other Medications acetaminophen (acetaminophen 325 mg Tab) 2 Tablets By Mouth every 4 hours as needed Pain/Fever. amlodipine (amLODIPine 2.5 mg Tab) 1 Tablets By Mouth every day. PATIENT EDUCATION INFORMATION Instructions: [place], [place] [facility] DISCHARGE INSTRUCTIONS HIP REPLACEMENT ARTHROPLASTY INCISION CARE: Mepilex dressing can get wet with showers. Please remove 10 days after surgery per instruction sheet. If ronn present, please coordinate removal 21 days after surgery with office staff. Please notify the office if any increase in redness, tenderness, drainage, fever, or wound separation is noted beyond this point. Compression stockings may be helpful if any significant or uncomfortable swelling in the legs is noted postoperatively. Use and removal instructions should be given by physical therapy. If the swelling is below the knee, knee high compression stockings may suffice. If this does cause swelling into the thigh region, waist high compression stockings may be beneficial as well. These can be obtained from most pharmacies, or can be obtained from the hospital or through Home Health. The mild grade compression stockings are best used initially, and dislocation precautions must be maintained. DISLOCATION PRECAUTIONS: Continue to use the abduction pillow between the knees at all times while in bed. This abduction pillow should be removed while walking and performing physical therapy exercises; otherwise, to be used while in bed. This is to be maintained for four weeks postoperatively. At that time you may begin using a regular bed pillow between your knees at night as needed. You should continue to avoid crossing the knees or crossing the legs for two months postoperatively. Sitting in a chair should always be such that the knees are kept below the level of the hips to avoid increased flexion of the hip, possibly causing dislocation. MEDICATIONS: You may resume your home medications at the time of discharge. Aspirin 325 mg EC oral once a day for 4 weeks for blood clot prevention with meals. Please notify your doctor if you have a stomach sensitivity to Aspirin or history of pr (more content not included)... Normal [facility] Coding Summary.on 02-07-2024 Coding Summary. ZLMMCecx60AUl7hIp+PG hlYWQ+RL6ECWNwT10mwZ SxmU8pB1WLYQvHMcpvSD VXVSyGEhFrueRfYW9tqM NjZXJu IC8+ZR1nRWEuVpmygCWr k7U9pDF1D12dkg7uCXnu bEN6AEGkFuPodrosx5me wMv0UKchLmfqCwZl BNXqrP70LCW2vI05Ey46 iVFyqLEcb5hzbRr7BrQv RAVkBDH8oKiwNOooq7La TZYeD98miKPdh2T6 IGNvbGxhcHNlOyBlbXB0 tL7lCCarxchuz4fiadka Nmt2tl00tUTxl7K2bVJ7 P2TupwX4JACxfAHt AwftwAHDnU9fvrnlm7ia cplnTfOhIIJaJQi9JSr2 YFWtoJfcEcGdLG96GKY3 KBDqdiYhH9YvZQYs jVkqSsQ4b4O2Oq3VT4WC YxjsF2XDOUKZMHuajUG+ BD81ah75Q4IzDyjiSmt4 KZGjJLT6rYB6yG3v BNSxDReim3O9oQZ7M7Eu ksMmhb7aj0sxQBXpXNux L30ytDOvd8P7IBQyqPG6 WMJmwVauRvMdwK40 Oyc+VTInwSkwv7BlPxbr h8dtd9tfdEm3DidvLMCi wyRyxJchGST0k9FoQl0i VDGavOK8jKM0rF0y QnDjKsA5UMorH863BpGv mWZaXpprD13hY1UuiUI+ XYMeVmf4UYJdpFoiRC2f L4WfSVLsgjzneZBj sRmgAR5dLLNfylhqEIQe mG7eYBElK4m2OeIuHqI0 BXbwT9VpJFHtryskCe94 kR1cNwAwAbY5WCla W0VwrjP4EUGtwAPzKNym CWT8F98ha3H2EAKxWIRy PRW7hAK5vI2ehOezelws bGVmdDsgdmVydGlj SJutSBapN098SMUwgRte PkNvZGluZyBEYXRlOiAg MDYvMjYvMjAyNDwvdGQ+ HFBqBPX3tOszWCMq qDKcEDbiCf9ooXalfFfr WB0hJJQazhgaGVCojN4l POEjhHQnwFmgLR6dHQId dcuur293XuNkKLP7 CYGhxEBwJ4MylS2iAeNz DYHrQBDyR1SqvACdHMuk P519GYlbHxL0GBGjkoYm C5ImCIMwgXqjWkC1 g3R6Bk8Fn0FwykayY4Eq jDMdTpEsTfpfHKk7Z6Ec PjwvdHI+GR40QGTcXD48 XPk8YUD1tEetMQxq SQNgQ9QaqP1bThRoLQDn ZGRkOyc+PHRhYmxlIHdp ZHRoPScxMDAlJyBzdHls VM1nDl7tZZOjTIXf qIxfgDUrWoNvg5yeWNYn QCsyBB8pjXsqY9BuuSE0 ITMwo2j6Vf12R79eV7Yj dXA+PGKcfIE2jOL3 oR6zNwIeOmW1CPlwY894 WlKzbGHpDadrd5eak3ns cZu1QnL9BDTgvbHbuYif ZVU2f4QaEb04N03s IHdpZHRoPSIxNSUiIHZh cHramk0szM1gWg4+PGNv cEZ1qMO0cV9hShChHbI9 QDolY062TzIqtZDd Pozug3ljl7psdPw2VtZs VLHjewRkrFwjOUE7r9Xg Jk07A5XqgRpyn7VvSbz7 es08qNAke9P8mAY7 J0NtQXXuspmdqRKhtHrs SU5uRHJosymsLYCinD9c LVXzB4g1VlTpAxT8ZMow Q1MykkH9ZUXhrFHl ECCuvVFKmA8yhgawx2tx binjTmEtVLMdSWl3XMl2 NDQboRjoYpMyGXJ0LvB2 ZFJ7eNCopL1fpMaa xrthtD5gIpe+IQR6kQDd aRLDSH6iOyyjePE+PHRk XYH0bAuuGAnlHERaaR5h DUOaB4a8KxZbZzE5 LYnaX6LfgvV3VZUmgVYo APIbwDHHcO6rjdqrx9me inisDjVbPSZzKHm8QQn8 LWFsaWduOiBsZWZ0 BjA2OQB8fFRfbI8whWus psvflU5xQqh+QmlydGgg QLY0SHp2B8JkRsg6DWOq kUkhHN0luVEtORax Pi8itOysgQwsUY1eVTAc uazqe876NoEmf8smRXIt lLWsZHlhYLQ8M48tz8H1 FDScYTQbOBR7kEB3 xH3ksYxegpmruOYoySkn okEgfCxxPLflJIfiH045 BGPmxAdnUdBgTPn5N3Cd Sef8ZLPgtMgdAS3s mXSvQTxfJs9ejIsngTas EC6nTVRunbkdw502YcVg n5riOJAiwZIwRXbpYRH3 D52rb4G2ERCgRBBy BMT4cWB9hO2niGwanehf bGVmdDsgdmVydGljYWwt PIfwJ633MZBoqCjsAdWd sOh8M3MsUkl4TEDu gCpfSA7zxUYsAKhfPk6x eFdocKhkTA7lPKVdalzo j707WuBeu5lmGYDhpDHc KBdxJSV3R24om2Z1 MIWsHSLeLHG2aUC3pK7o bGlnbjogbGVmdDsgdmVy sGqmSTneTZplO953QFJr cDsnPlBhdGllbnQg IIyuNLv4B8VhKbdewNO+ HX36FHYyCH07aWTmzXYd s3vwxNh1PzOwFOLjTEJ2 kJziCIdjg1CiNOVy L14wpUHtc6I9JSQnkTof lROaRiUajHI3hY7jCSqb sialg2jkiqewOcnld9ng ci42cM26P99oAQje ZHRoPSIzMCUiIHZhbGln kp4kdX2wHk6+PGNvbCB3 pOD8zL2tJVMlWhD1FPqr A601YsKpdWQmIhcf b0iup7oevFo8KjD7RVLx oqDgiTnuQPU9m5DwIp40 C17bIQhlVGMfGVQcAUVt ZXDygBkruf3ybD1m Ii8+ANSjrOC3zIJ3jX3i MgXuSzE6WDuaF270VqEf tWLnZrwcG41pO2MxdFM+ ZRZfLqe5LDDdwBlx QX4okHIqRAknBg9zVJJ1 IePfSoWuRPsoD5HpHFRu prsqodohpGD5VRCrOVKr rQ34Gz4tcNghXUBx zTHEmB9ygyiwt3nduaet KeFdKAIlXRs4WUc0WFFr dGmrXhNyXTJ8SnG3ROH1 eQEkcT3usXagcgpq aR2eH2IbCOLgxgydSw28 eK8yHxOpHwI0GZuaWmn+ SX0VLdXcDXJLMs3RHKLQ MI22BR41fWZio9H4 tXR3C3HbGMMtwnudjidz qVS7CUKiCWNfcB42aMQw HRzsDs5gv0D2v647SZMi HWJzbE52Ii3dgIbj CHRrpCVWtE3vryimm5zl tlaiIxCmUKHrEOt1NQj1 FYPcyHhgRaWoWGC2JfR7 UWO6sPWieR0lwEdo jqvykE0eEui+MDgvMTUv MTkzODwvdGQ+PHRkIHN0 eRufQJvnTOAsmN5nJGTy T6j0XzEoZnF2JLye F4DnDTIxxhkfJs95tJ1w DwRkQfR2HAflG1QprjT6 OXOzgZVqISamIPX9S78t p1R4AFUuNSXgNGU0 sVE4cR3xyYmhelsxzECc dDsgdmVydGljYWwtYWxp C044OQNwkSibFqa7WDtt CYKqPB66CD23oXHj c2C0nBE3Q1EbUWQxximj nwtmjEZ5MMQrCYXgzL87 xQGwEZvsMd2dt9R5n677 XNHtVDCnhB90Cv5s tXfaPTVqdLOCoO7nhwsu e7xbrvpiGlApZJCeIQl4 MXi9RZRevCgfHeOjZRJ5 FaT2FIA5dTJdaV9q qSjieawbnV1xBad+RmVt QWmwHG66GP60bUOsp0R6 xPQ9X1PmXNThnopglbza lKF7UZBnUENiiO05 cPGpBTrvZm8th5U7s108 HJAcZSSvzS38Vi6mwYoz LBNxdRKUfR4fvcguu6kt cjogIzAwMDAwMDt0 IBo0VJHrqAjxWaRuSYA0 CcR3SEY7zYHgeS3fhBdq ksgwfS5gNbw+Q5O9qNV2 aWVudDwvdGQ+PC90 yb39U6CqKrnoYvi1AZQm UAY5hTE2kO3rNPBeSQwq a7D7tNL8K4LqxqNaqe9q n9wpQWMxHIwhC21i qLMpl8N1SDItbAZ3ARRw tRulUyTmlW28Opp+PGNv xEnge2EqIygck7dbp6hy mXv3SbIhFUNyhgAv xPhbZPQ3h5BbUe87V42g IHdpZHRoPSIzMCUiIHZh uOwiot8kmI0fEf8+PGNv zZE3cCU3wJ5kBeFl MnI6RFerX335AwKtuGQw Jcxhb7mlo9ysiYe3EuNj ULIoinVzyEnlSJH1r2Zw Rg61P8YdwQoue0Bd Pki7yb96wVAtn9D2dAQ9 N7BiFJGlxmydzDLksClo QO0yNFEhvufzKGXisQ7g NQZjY6e3CgJfByT4 DLgdX8UhrbQ8DFXfuYIg IQYlzAOLzF6dikgkx9iu novkBeNuJYXvXFt2MLp8 LWFsaWduOiBsZWZ0 AqC2HQQ0sEFhnJ9xpBqp ffcypH2wZjb+SMe9k3wc lFWmVR4guSW8CS57ZN54 zSVvu9C5lJP4S2Bt WFZrwatnvsrrsLY3VSHj SUDokH63Zh4szJsvUd5x ZGGpWAX2OHEeqNUfL9Yf qP9aVwPxHSFhWFLp A4AsrMMdSQcmL219TMmz SaY4VLOwueBwP7BpOFGm gRyjBbU9i1V2Ya1IJQ78 QL05WR33yYHrg1C9 zMB2Y2GbXEIoxcwywzpp hCL1YYMvYKGakY78Bg4f aKisSk7zQMEzJZT3XKTt sGPoT7HrwX9kEwNt DVTxSBPzU3OxzOBgMJsa Q978VYomBxF6UTLpigWf F5DbNHUjkVpsNkQ9d8M5 Pv5ROc02TW74UX31 rZGim4J9jWZ5B6JzOTZt uhazzotgyCS5NJTySPWq wE53De3kiYkqQf4aIAZr IXJ6CSQlmZPxN8Bu gA0lUsEqGUVzQJGlW9Cc jVZuOSpbD901GNpwViC1 QKPvigSmQ2XxTEDghYgf FgQ3r0B4Im0YHTra fpy8Y0PgPrhuuCK+PC90 WGQsVX64kRDoqAVzm6ob fKl3McXzGOVkUJD3kEgd RRrzs3NiSIYxZ22w fTKds2M2DYUve (more content not included)... Normal [facility] XR Chest 2 Viewson XR Chest 2 Views Exam Date/Time: 01/30/2024 10:30 EDT Reason for Exam: P.A.T. Report IMPRESSION: NO ACUTE ACTIVE CARDIOPULMONARY PROCESS CLINICAL INFORMATION: P.A.T. COMPARISON: 2019 1513 HOURS. FINDINGS: 2 views of the chest are submitted. The cardiac silhouette is sized patient. Pulmonary vascular unremarkable Right-sided trachea. No focal injury no effusions No pneumothoraces. Partially visualized left total humeral arthroplasty.. Ordering Provider: Alex Humphries FINAL REPORT Dictated: 02/01/2024 1:34 pm Kiran Baron Signed (Electronic Signature): 02/01/2024 1:34 pm Signed by: Kiran Baron Transcribed by: FRENCH Technologist: HOLLY Technical Comments Radiation Dose: Ka,r in mGy = . DAP = . Normal [facility] Consent for Treatmenton 01-12 Consent for Treatment [id number] #[id number] Normal [facility] UA with Cult Rflxon 01-30-20 24 Bilirubin Ql (U) Negative Normal Negative [facility] Comment on above: Performed By: #### 4 [id number] #### [facility] [address] [place] [address] Clarity (U) Clear Normal Clear [facility] Comment on above: Performed By: #### 4 [id number] #### [facility] [address] [place] [address] Color (U) Light-Yellow Normal Yellow [facility] Comment on above: Result Comment: Micr oscopic readings are only performed on those samples that meet specific criteria set forth by [facility]. Performed By: #### 4 [id number] #### [facility] [address] [place] [address] Glucose Ql (U) Negative Normal Negative [facility] Comment on above: Performed By: #### 4 [id number] #### [facility] [address] [place] [address] Hemoglobin Auto test strip (U) [Mass/Vol] 1+ mg/dL Abnormal Negative [facility] Comment on above: Performed By: #### 4 [id number] #### [facility] [address] [place] [address] Ketones Auto test strip Ql (U) Negative Normal Negative [facility] Comment on above: Performed By: #### 4 [id number] #### [facility] [address] [place] [address] Leukocyte esterase Auto test strip Ql (U) Negative Normal Negative [facility] Comment on above: Performed By: #### 4 [id number] #### [facility] [address] [place] [address] Mucus Auto Ql (U) Negative Normal Negative [facility] Comment on above: Performed By: #### 4 [id number] #### [facility] [address] [place] [address] Nitrite Auto test strip Ql (U) Negative Normal Negative [facility] Comment on above: Performed By: #### 4 [id number] #### [facility] [address] [place] [address] pH (U) 7.0 [pH] Invalid Interpretation Code 5.0-9.[address] [facility] Comment on above: Performed By: #### 4 [id number] #### [facility] [address] [place] [address] Protein Ql (U) Negative Normal Negative [facility] [facility] Comment on above: Performed By: #### [id number] #### [facility] [address] [id number] RBC Ql (U) 4-20 Abnormal 0-[address] [facility] Comment on above: Performed By: #### 4 [id number] #### [facility] [address] [place] [address] Specific gravity (U) [Rel density] 1.012 Invalid Interpretation Code 1.005-1.[address] [facility] Comment on above: Performed By: #### 4 [id number] #### [facility] [address] [id number] Urobilinogen (U) [Mass/Vol] Negative Normal Negative [facility] Comment on above: Performed By: #### 4 [id number] #### [facility] [address] [place], [place] [id number] Type of Urine collection method Clean Catch Normal [facility] Comment on above: Performed By: #### 4 [id number] #### [facility] [address] [id number] URINALYSISOrdered By: SYSTEM SYSTEM on 01-30-2024 Bilirubin Ql (U) Negative Normal Negativemg/ d L [facility] UA Auto SS Clarity (U) Clear (01/30/24 10:10 AM) Normal Clear [facility] UA Auto SS Color (U) Light-Yellow 1 (01/30/24 10:10 AM) Normal Yellow [facility] Auto SS Comment on above: Interpretive Data: M icroscopic readings are only performed on those samples that meet specific criteria set forth by [facility]. Glucose Ql (U) Negative Normal Negativemg/d L FT UA Auto SS Hemoglobin Auto test strip (U) [Mass/Vol] 1+ mg/dL Invalid Interpretation Code Negativemg/d L FT UA Auto SS Ketones Auto test strip Ql (U) Negative Normal Negativemg/d L FT UA Auto SS Leukocyte esterase Auto test strip Ql (U) Negative Normal NegativeLeu/ uL [facility] UA Auto SS Mucus Auto Ql (U) Negative Normal Negativegr ad ed/LPF [facility] UA Auto SS Nitrite Auto test strip Ql (U) Negative Normal Negativemg/d L [facility] UA Auto SS pH (U) 7.0 *NA* (01/30/24 10:10 AM) Invalid Interpretation Code 5.0 - 9.0 [facility] UA Auto SS Protein Ql (U) Negative Normal Negativemg/d L [facility] UA Auto SS RBC Ql (U) 4-20 graded/HPF Invalid Interpretation Code 0-3graded/HP F [facility] UA Auto SS Specific gravity (U) [Rel density] 1.012 *NA* (01/30/24 10:10 AM) Invalid Interpretation Code 1.005 - 1.030 [facility] UA Auto SS Urobilinogen (U) [Mass/Vol] Negative Normal Negativemg/d L [facility] UA Auto SS URINALYSISOrdered By: Brenda Kowalski on 01-30-2024 UA Spec Desc Clean Catch (01/30/24 10:10 AM) Normal [facility] UA Auto SS IntraOperative Documentson 0 01-05-2024 IntraOperative Documents [id number] 24#1.00TIFF Normal [facility] IntraOperative Documentson 0 01-02-2024 IntraOperative Documents [id number] 0#1.00TIFF Normal [facility] Main OR Intraoperative Recor don 01-02-2024 Main OR Intraoperative Record IntraOp Document Type FT Summary Primary Physician: Caroline Weiss DO Finalized Date/Time: 01/02/24 11:54:04 Pt. Name: TERESA SMALL/Sex: 1940 Female Med Rec #: [id number] Physician: Caroline Weiss DO Financial #: [id number] Pt. Type: O Room/Bed: Admit/Disch: 01/01/24 13:21:16 - 01/01/24 15:15:00 Institution: Case Times FT Entry 1 Patient Times In Room 01/01/24 14:25:00 Out Room 01/01/24 14:38:00 Procedure Times Start 01/01/24 14:31:00 Stop 01/01/24 14:35:00 Anesthesia Times Last Modified By: Jen DIAZ, Honey Bello 01/01/24 14:43:39 General Comments: 01/02/24 Chart opened for charge review per Amadou Payne RN. [place] Case Attendance FT Entry 1 Entry 2 Entry 3 Case Attendee Caroline Weiss DO, RN, Tray Christian Role Performed Surgeon - Primary Keller Machine Operator - Primary Scrub - Primary Time In 01/01/24 14:25:00 01/01/24 14:25:00 01/01/24 14:25:00 Time Out 01/01/24 14:38:00 01/01/24 14:38:00 01/01/24 14:38:00 Procedure HIP ARTHROGRAM(Right) HIP ARTHROGRAM(Right) HIP ARTHROGRAM(Right) Comments Last Modified By: Jen DIAZ, Honey Li RN, Honey Li RN, Honey Bello 01/01/24 Hayley Bello 01/01/24 Hayley Bello 01/01/24 14:52:45 14:52:45 14:52:45 Entry 4 Case Attendee Lavon POTTER(R)Valerie Role Performed Beam Dyer Recessed Vat Time In 01/01/24 14:25:00 Time Out 01/01/24 14:38:00 Procedure HIP ARTHROGRAM(Right) Comments Last Modified By: Jen DIAZ, Honey Bello 01/01/24 14:52:45 Perioperative Protocols FT Pre-Care Text: Implements protective measures prior to operative or invasive procedure, confirms identity before the operative or invasive procedure, verifies operative procedure, surgical site, and laterality Entry 1 Procedure(s) HIP ARTHROGRAM(Right) Patient Identity Birthday, ID Band Verified (select at Check, Patient least 2): Participation Consents / H and P HandP, Surgery/Procedure Operative Site Present Verified Consent Marking Verified Surgical Site Yes Laterality Verified Yes Verified Procedure Verified Yes Correct Patient Yes Position Verified Availability Equipment, Medication, Prep Dry n/a Verified (If X-ray Applicable) PreOp Antibiotic No Time Out Caroline Weiss DO, Given Participants Jen DIAZ, Simon Bello Adam A, Barnes RT(R)Valerie Time Out Complete 01/01/24 14:30:00 Outcomes Met? Yes Last Modified By: Honey Li RN 01/01/24 14:48:28 Post-Care Text: The patient is free from signs and symptoms of injury caused by extraneous objects Allergy Information FT Pre-Care Text: Verifies allergies Entry 1 Allergies Reviewed? Yes Allergies Reviewed Self/Patient With Outcomes Met? Yes Last Modified By: Honey Li RN 01/01/24 14:48:33 Post-Care Text: The patient received appropriate medication(s) safely administered during the perioperative period Surgical Procedures FT Entry 1 Procedure Description Procedure HIP ARTHROGRAM Modifiers Right Surgeon Description RIGHT HIP ARTHROGRAM Primary Procedure Yes Primary Surgeon Caroline Weiss DO Start 01/01/24 14:31:00 Stop 01/01/24 14:35:00 Anesthesia Type Local Surgical Service Orthopedics Wound Class 1 - Clean Last Modified By: Honey Li RN 01/01/24 14:48:37 General Case Data FT Pre-Care Text: Classifies surgical wound, implements aseptic technique, initiates traffic control Entry 1 Case Information OR OR 5 FT Case Level Level 2 Wound Class 1 - Clean Specialty Orthopedics Preop Diagnosis RIGHT HIP OSTEOARTHRITIS Postop Same As Preop Yes Postop Diagnosis RIGHT HIP OSTEOARTHRITIS Outcomes Met? Yes Last Modified By: Honey Li RN 01/01/24 14:48:46 Post-Care Text: The patient is free from signs and symptoms of infection Skin Assessment (Pre Procedure) FT Pre-Care Text: Implements protective measures to prevent skin/ tissue injury due to thermal or mechanical sources Evaluates for signs and symptoms of physical injury to skin and tissue Entry 1 Skin Integrity Intact, [place], Warm, and Skin Abnormality No Dry Outcomes Met? Yes Last Modified By: Honey Li RN 01/01/24 14:48:54 Post-Care Text: The patient is free from signs and symptoms of injury caused by extraneous objects Patient Positioning FT Pre-Care Text: Identifies physical alterations that require additional precautions for procedure-specific positioning, verifies presence of prosthetics or corrective devices, positions the patient, evaluates the patient for signs and symptoms of injury as a result of positioning Entry 1 Procedure HIP ARTHROGRAM(Right) Body Position Supine Feet Uncrossed? Yes Left Arm Position Resting at Side Right Arm Position Extended on Padded Arm Left Leg Position Extended Board Right Leg Position Extended Positioning Device Padded Armboard, Pillow Under Head Large, (more content not included)... 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 HISTORY AND INDICATIONS: Teresa is an 83-year-old female with progressive right hip pain that has failed conservative care. 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 She has moderately severe osteoarthritis on the x-ray. The pros, cons, risks, benefits, and reasonable expectations of above procedure were discussed, consent form signed and charted, sites markedly preoperatively, all questions answered preoperatively, consent form signed and witnessed. PROCEDURE: Teresa was taken to the Operating Room and placed in supine position. Unobstructed AP view was achieved with the large C-arm with audiovisual lead technician. The anterior hip and thigh were prepped and draped in sterile fashion with ChloraPrep. Time-out procedure occurred consistent with the consent form, History and Physical, preoperative marked site. Landmarks were identified. 10 cc of 1% plain lidocaine was injected into a subcutaneous wheal at the preoperative marked site, and an 18-gauge spinal needle was introduced down to the anterior femoral neck with palpable release through the capsule. 0.5 cc of contrast dye was placed confirming intracapsular placement at which point 1 cc of Kenalog (40 mg) with 4 cc of 1% plain lidocaine was injected into the joint. Teresa tolerated the injection well. The needle was removed. Hemostasis was achieved. Vital signs were stable. She was transferred back to Ambulatory Surgery Unit in stable and satisfactory condition. CASE: Clean and elective COUNTS: Sponge and needle count correct SPECIMEN: None CONDITION: The patient's condition satisfactory Ellis Stephens Dictated: 01/01/2024 [id number] Transcribed: 01/02/2024 cc:Dejon Zhou M.D. [facility] Comment on above: Result Comment: Elec tronically Signed By: Caroline Weiss DO\.br\Date and Time Signed: 01/02/24 07:09 EDT Preoperative Documentson Preoperative Documents [id number] 1#1.00TIFF [facility] Consent for Treatmenton 12-13 Consent for Treatment [id number] #1.00TIFF [facility] Discharge Instructionson Discharge Instructions TERESA SMALL :1940 Visit Date:01/01/2024 Inpatient Discharge Instructions Your Care Team Admitting Physician - Caroline Weiss DO Referring Physician - Caroline Weiss DO Reason for Your Visit RIGHT HIP OA Your Diagnosis Localized osteoarthrosis of right hip Tests Performed XR Fluoro Guidance Needle Placement -- Results Pending -- Please visit your patient portal for your results or contact your primary care physician. This Is Your Medications List acetaminophen (acetaminophen 325 mg Tab) magnesium hydroxide (magnesium hydroxide 8% Oral Susp 30 mL) meloxicam (meloxicam 15 mg Tab) What to do next Instructions From Your Doctor Event Name Event Result Discharge Instructions Freetext Ice right hip 3-4 times the day of the injection for 20 minutes.Limit activity 50% the day of the inection. Discharge Activity Ambulate as tolerated, Expect mild pain, Expect minimal amount of drainage and/or bleeding Discharge Restrictions Do not operate machinery or tools, Do not make important decisions for 24 hours, Do not drink alcoholic beverages for 24 hours Discharge Diet(s) Regular, Drink liquids and eat a light meal Call Your Doctor For Persistent or heavy bleeding, Temperature above 101.5 degrees, Redness, swelling, or pus at operative site, Severe pain at the operative site, Persistent vomiting Discharge Instructions Discharge Instructions New Follow Up Appointments after Discharge Follow Up with Caroline Weiss When: Comments: Keep scheduled appointment Where: [address] [place], [place] [id number] [email or web address] (1) Medications What How Much When Instructions Next Dose Unchanged acetaminophen (acetaminophen 325 mg Tab) 2 Tablets By Mouth Every 4 hours as needed for Pain/Fever Unchanged magnesium hydroxide (magnesium hydroxide 8% Oral Susp 30 mL) 30 Milliliter By Mouth 2 times a day as needed for Constipation Unchanged meloxicam (meloxicam 15 mg Tab) 1 Tablets By Mouth Every day Allergies No Known Allergies Common Emergency Awareness Tips IS IT A STROKE? Act FAST and Check for these signs: FACE Does the face look uneven? ARM Does one arm drift down? SPEECH Does their speech sound strange? TIME Call at any sign of stroke Heart Attack Signs Chest discomfort: Most heart attacks involve discomfort in the center of the chest and lasts more than a few minutes, or goes away and comes back. It can feel like uncomfortable pressure, squeezing, fullness or pain. Discomfort in upper body: Symptoms can include pain or discomfort in one or both arms, back, neck, jaw or stomach. Shortness of breath: With or without discomfort. Other signs: Breaking out in a cold sweat, nausea, or lightheaded. Remember, MINUTES DO MATTER. If you experience any of these heart attack warning signs, call to get immediate medical attention! Patient Survey You may receive a survey in the mail asking you about your stay with us. We want to hear from you, please share your experience with us by completing your survey. Thank you for choosing [facility]. Valeriy Award Nomination The VALERIY (Diseases Attacking the Immune SYstem) Award is an international recognition program that honors and celebrates the skillful, compassionate care nurses provide every day. Anyone who experiences or observes amazing care being provided by a nurse is encouraged to submit a nomination. To nominate your nurse, use your smart phone to scan the QR code below. Patient Portal You may access all of your results and other medical record information on our secure patient portal. If you are not signed up for this yet, please contact [employer] at [phone] to get signed up today. Patient Name: TERESA SMALL I have received this information and my questions have been answered. Patient/Representati ve Name: Patient/Representati ve Signature: Relationship to Patient: Witness Name/Signature: Date: [facility] Comment on above: Result Comment: Elec tronically Signed By: Terry DIAZ, Antonieta Jamil\.br\Date and Time Signed: 01/01/24 14:47 EDT H&P Updateon 01-01-2024 H&P Update [id number] 7#1.00TIFF [facility] Main OR Preoperative Recordo n 01-01-2024 Main OR Preoperative Record PreOp Document Type FT Summary Primary Physician: Caroline Weiss DO Finalized Date/Time: 01/01/24 15:33:43 Pt. Name: TERESA SMALL/Sex: 1940 Female Med Rec #: [id number] Physician: Caroline Weiss DO Financial #: [id number] Pt. Type: O Room/Bed: [address] [place] [address] Admit/Disch: 01/01/24 13:21:16 - 01/01/24 15:15:00 Institution: Case Times PreOp FT Pre-Care Text: Verifies consent for planned procedure, identifies individual values and wishes concerning care, includes family members in perioperative teaching Entry 1 Patient Times. In Pre Surgery 01/01/24 14:45:00 Out Pre Surgery 01/01/24 15:15:00 Outcomes Met? Yes Last Modified By: Antonieta Stewart RN 01/01/24 15:33:41 Post-Care Text: The patient participates in decisions affecting his or her perioperative plan of care Finalized By: Antonieta Stewart RN Document Signatures Signed By: Antonieta Stewart RN 01/01/24 15:[address] [facility] Main OR Preoperative Record Holding Area Document Type FT Summary Primary Physician: Caroline Weiss DO Finalized Date/Time: 01/01/24 14:13:47 Pt. Name: TERESA SMALL Marilynn Richardson/Sex: 1940 Female Med Rec #: [id number] Physician: Caroline Weiss DO Financial #: [id number] Pt. Type: O Room/Bed: [facility] Admit/Disch: 01/01/24 13:21:16 - Institution: Case Times Holding FT Pre-Care Text: Verifies consent for planned procedure, identifies individual values and wishes concerning care, includes family members in perioperative teaching Secures patient's records' belongings, and valuables, maintains patient's dignity and privacy, and maintains patient confidentiality Entry 1 In Holding 01/01/24 13:40:00 Outcomes Met? Yes Last Modified By: BENSON Tomlin RN, Amber R 01/01/24 13:46:36 Post-Care Text: The patient participates in decisions affecting his or her perioperative plan of care The patient's right to privacy is maintained Surgery Checklist FT Entry 1 Patient Birthday, ID Band Procedure Blood Consent, Surgical Identification: Check, Patient Verification: Consent, With Patient Participation NPO after Midnight: n/a Date/Time: 01/01/24 11:00:00 Personal Items: Cataract Lens Implant Personal Items jessie cataract implants, Comment: 1 watch/2 earrings to or, purse left in room ok with pt does not need locked up Complaints of Pain: n/a Operative Site Yes Marking: Marked By: avinash weiss Location: right hip Does Patient Smoke No Patient states No Comment - Adult per self postop adult Supervision supervision available Case Cancelled in No Holding Area see comments below for reason Last Modified By: BENSON Tomlin RN, Amber R 01/01/24 13:48:29 General Comments: pt is a local Finalized By: BENSON Tomlin RN, Amber R Document Signatures Signed By: BENSON Tomlin RN, Jackie Glass 01/01/24 14:[address] [facility] Consent for Procedure/Surger yon 12-28-2023 Consent for Procedure/Surgery [id number]# 1.00TIFF Normal [facility] Inpatient Patient Summaryon 12-28-2023 Inpatient Patient Summary [address] [address] [facility] Clinical Discharge Instructions PERSON INFORMATION Name: TERESA SMALL PHYSICIANS Admitting Physician: Caroline Weiss DO Attending Physician: Caroline Weiss DO PCP: DEJON ZHOU MD Discharge Diagnosis: Localized osteoarthrosis of right hip Comment: PATIENT EDUCATION INFORMATION Instructions: Medication Leaflets: Follow up: With: Address: When: Caroline Weiss [address] [place] [id number] [facility] () Comments: Keep scheduled appointment Type Location Start [facility] Surgery [facility] Services 01/01/2024 2:30 PM 01/01/2024 2:45 PM Confirmed MEDICATION LIST Medications to Continue with No Changes Other Medications acetaminophen (acetaminophen 325 mg Tab) 2 Tablets By Mouth every 4 hours as needed Pain/Fever. acetaminophen-oxycod one (Percocet 325 mg-5 mg Tab) 1-2 orally every 4-6hrs as needed for pain Dx: S42.292D Duration: 7 days; as needed as needed for pain. Refills: 0., 1-2 orally every 4-6hrs as needed for pain magnesium hydroxide (magnesium hydroxide 8% Oral Susp 30 mL) 30 Milliliter By Mouth 2 times a day as needed Constipation. Turmeric (turmeric 500 mg oral capsule) 1 Capsules By Mouth every day. Comment: Normal [facility] Outpatient Surgery Discharge Instructionon 12-28-2023 Outpatient Surgery Discharge Instruction [address] [address] Patient Discharge Instructions PERSON INFORMATION Name: TERESA SMALL Date of : 1940 Current Date: 12/28/2023 11:54:32 PHYSICIANS Admitting Physician: Caroline Weiss DO Discharge Diagnosis: Localized osteoarthrosis of right hip TERESA SMALL has been given the following list of follow-up instructions, prescriptions, and patient education materials: PATIENT FOLLOW-UP INFORMATION Diet: Regular, Drink liquids and eat a light meal Discharge Activity: Ambulate as tolerated, Expect mild pain, Expect minimal amount of drainage and/or bleeding Discharge Restrictions: Do not operate machinery or tools, Do not make important decisions for 24 hours, Do not drink alcoholic beverages for 24 hours Call Your Doctor For: Persistent or heavy bleeding, Temperature above 101.5 degrees, Redness, swelling, or pus at operative site, Severe pain at the operative site, Persistent vomiting Additional Instructions: Ice right hip 3-4 times the day of the injection for 20 minutes. Limit activity 50% the day of the inection. IF UNABLE TO CONTACT YOUR PHYSICIAN AND YOU FEEL IT IS AN EMERGENCY, GO TO THE NEAREST EMERGENCY ROOM OR CALL 911 [address]NY BONNIE J, have received the attached patient education materials/instructio ns and have verbalized understanding: May we do a follow up call? Yes No I was present when discharge instructions were given Patient Signature Date Clinican/Nurse Signature Date Follow up: With: Address: When: Caroline Weiss [address] [place] [id number] [email or web address] (1) Comments: Keep scheduled appointment Type Location Start [facility] Surgery [facility] Surgical Services 01/01/2024 2:30 PM 01/01/2024 2:45 PM Confirmed Pharmacy Information: You may receive a survey from [employer] asking you to rate your care experience. Your feedback is important and will help us understand what we do well and how we can improve the quality of care we provide to you, your loved ones and our community. It?s an honor to serve you. Thank you for choosing [facility] HERE ARE THE MEDICATION CHANGES THAT OCCURRED DURING YOUR HOSPITAL STAY Medications to Continue with No Changes Other Medications acetaminophen (acetaminophen 325 mg Tab) 2 Tablets By Mouth every 4 hours as needed Pain/Fever. acetaminophen-oxycod one (Percocet 325 mg-5 mg Tab) 1-2 orally every 4-6hrs as needed for pain Dx: S42.292D Duration: 7 days; as needed as needed for pain. Refills: 0., 1-2 orally every 4-6hrs as needed for pain magnesium hydroxide (magnesium hydroxide 8% Oral Susp 30 mL) 30 Milliliter By Mouth 2 times a day as needed Constipation. Turmeric (turmeric 500 mg oral capsule) 1 Capsules By Mouth every day. PATIENT EDUCATION INFORMATION Instructions: Medication Leaflets: Normal [facility] Patient Education - Texton 0 12-28-2023 Patient Education - Text [facility] CT ABD/PELVIS WO CONon 12-15 CT ABD/PELVIS WO CON EXAMINATION: CT ABD/PELVIS WO CON, 12/15/2022 10:03 AM EDT HISTORY: Bhargav hematuria COMPARISON: None. TECHNIQUE: CT scan of the abdomen and pelvis was performed without IV contrast. CT dose reduction technique was used, including Automated Exposure Control. ABDOMEN/PELVIS FINDINGS: Lower Chest: Unremarkable. Liver: A cyst is present in the right hepatic lobe measuring 1.2 cm. Biliary/Gallbladder: Prior cholecystectomy Pancreas: Unremarkable. Spleen: Unremarkable. Adrenal Glands: Unremarkable. Kidneys: Unremarkable. Gastrointestinal/Per itoneum: No acute abnormality. Mild colonic diverticulosis is present. The appendix is not discretely visualized. No free air or free fluid. Vascular: Mild to moderate scattered atherosclerotic calcifications are present. Lymph Nodes: No enlarged lymph nodes by CT size criteria. Pelvic Organs: Unremarkable. Bladder: Unremarkable. Bones: No acute osseous abnormality. [A left total hip arthroplasty present. Moderate degenerative changes are present in the right hip. Moderate multilevel degenerative changes are present in the visualized spine. Soft tissues: Unremarkable. IMPRESSION: 1. No acute abnormality of the abdomen and pelvis. 2. Mild colonic diverticulosis. 3. Prior cholecystectomy. 4. Left total hip arthroplasty. 5. Moderate degenerative changes in the right hip in the visualized spine. Electronically authenticated by: ANGEL GARCIA Date: 2022-12-15 13:56 Normal [facility] US LUIS DANIEL DOP LEG LTon 12-03-19 23 US LUIS DANIEL DOP LEG LT EXAMINATION: DOPPLER VENOUS ULTRASOUND OF THE LEFT LOWER EXTREMITY, 12/02/2022 3:57 PM EDT COMPARISON: None. HISTORY: Pain TECHNIQUE: Blanca-scale evaluation with compression, spectral flow, and color Doppler assessment of the deep venous system of the left leg from groin to knee, and then at the ankle. FINDINGS: In the left lower extremity, the greater saphenous, small saphenous, common femoral, femoral, popliteal, peroneal, anterior tibial, and posterior tibial veins demonstrate normal compressibility and blood flow. IMPRESSION: 1. No evidence of left lower extremity deep venous thrombosis. Electronically authenticated by: LARS PAGE Date: 2022-12-02 16:33 Normal [facility] COVID Quick Testingon 2020 Result Negative [facility] Other Vital Signs Date Time Vital Sign Value Performing Clinician Facility 03-04-2024 15:00-0400 Diastolic blood pressure 72 mm[Hg] Caroline Weiss [facility] 03-04-2024 15:00-0400 Heart rate 89 /min Caroline Weiss [facility] 03-04-2024 15:00-0400 SaO2% (BldA) [Mass fraction] 97 % Caroline Weiss [facility] 03-04-2024 15:00-0400 Systolic blood pressure 150 mm[Hg] Caroline Merly [facility] 03-04-2024 13:27-0400 Heart rate 81 /min Caroline Merly [facility] 03-04-2024 13:27-0400 SaO2% (BldA) [Mass fraction] 98 % Caroline Merly [facility] 03-04-2024 13:27-0400 Diastolic blood pressure 68 mm[Hg] Caroline Weiss [facility] 03-04-2024 13:27-0400 Mean blood pressure 95 mm[Hg] Caroline Weiss [facility] 03-04-2024 13:27-0400 Systolic blood pressure 149 mm[Hg] Caroline Merly [facility] 03-04-2024 13:27-0400 Respiratory rate 18 /min Caroline Merly [facility] 03-04-2024 10:16-0400 Heart rate 69 /min Caroline Merly [facility] 03-04-2024 10:16-0400 SaO2% (BldA) [Mass fraction] 98 % Caroline Merly [facility] 03-04-2024 10:16-0400 Respiratory rate 16 /min Caroline Merly [facility] 03-04-2024 10:13-0400 Diastolic blood pressure 83 mm[Hg] Caroline Weiss [facility] 03-04-2024 10:13-0400 Mean blood pressure 97 mm[Hg] Caroline Weiss [facility] 03-04-2024 10:13-0400 Systolic blood pressure 127 mm[Hg] Caroline Weiss [facility] 03-04-2024 10:05-0400 Body temperature 96.98 [degF] Caroline Merly [facility] 03-04-2024 10:05-0400 Mean blood pressure 95 mm[Hg] Caroline Merly [facility] 03-04-2024 10:05-0400 Respiratory rate 17 /min Caroline Merly [facility] 03-04-2024 09:55-0400 Mean blood pressure 74 mm[Hg] Caroline Merly [facility] 03-04-2024 09:55-0400 Respiratory rate 17 /min Caroline Merly [facility] 03-04-2024 09:50-0400 Mean blood pressure 78 mm[Hg] Caroline Merly [facility] 03-04-2024 09:40-0400 Body temperature 96.98 [degF] Caroline Merly [facility] 03-04-2024 06:23-0400 Blood Pressure Location Caroline Merly [facility] 03-04-2024 06:23-0400 Mean blood pressure 89 mm[Hg] Caroline Merly [facility] 03-04-2024 06:23-0400 Heart rate 80 /min Caroline Merly [facility] 03-04-2024 06:21-0400 Body temperature 97.34 [degF] Caroline Merly [facility] 03-04-2024 06:21-0400 Blood Pressure Location Caroline Merly [facility] 01-30-2024 10:08-0400 Heart rate 60 /min Caroline Merly [facility] 01-30-2024 10:08-0400 SaO2% (BldA) [Mass fraction] 98 % Caroline Weiss [facility] 01-30-2024 10:07-0400 Body temperature 97.7 [degF] Caroline Merly [facility] 01-30-2024 10:07-0400 Blood Pressure Location Caroline Merly [facility] 01-30-2024 10:07-0400 Diastolic blood pressure 75 mm[Hg] Caroline Merly [facility] 01-30-2024 10:07-0400 Mean blood pressure 105 mm[Hg] Caroline Merly [facility] 01-30-2024 10:07-0400 Systolic blood pressure 164 mm[Hg] Caroline Merly [facility] 01-30-2024 10:07-0400 Respiratory rate 16 /min Caroline Merly [facility] 01-01-2024 15:00-0400 Heart rate 60 /min Caroline Merly [facility] 01-01-2024 15:00-0400 SaO2% (BldA) [Mass fraction] 99 % Caroline Merly [facility] 01-01-2024 14:57-0400 Diastolic blood pressure 77 mm[Hg] Caroline Merly [facility] 01-01-2024 14:57-0400 Mean blood pressure 112 mm[Hg] Caroline Merly [facility] 01-01-2024 14:57-0400 Systolic blood pressure 183 mm[Hg] Caroline Weiss [facility] 01-01-2024 14:57-0400 Body temperature 98.06 [degF] Caroline Merly [facility] 01-01-2024 14:35-0400 Diastolic blood pressure 96 mm[Hg] Caroline Weiss [facility] 01-01-2024 14:35-0400 Heart rate 63 /min Caroline Weiss [facility] 01-01-2024 14:35-0400 SaO2% (BldA) [Mass fraction] 97 % Caroline Weiss [facility] 01-01-2024 14:35-0400 Systolic blood pressure 198 mm[Hg] Caroline Weiss [facility] 01-01-2024 14:25-0400 Diastolic blood pressure 96 mm[Hg] Caroline Weiss [facility] 01-01-2024 14:25-0400 Heart rate 69 /min Caroline Weiss [facility] 01-01-2024 14:25-0400 SaO2% (BldA) [Mass fraction] 98 % Caroline Weiss [facility] 01-01-2024 14:25-0400 Systolic blood pressure 190 mm[Hg] Caroline Weiss [facility] 01-01-2024 13:42-0400 Mean blood pressure 113 mm[Hg] Caroline Weiss [facility] 01-01-2024 13:42-0400 Respiratory rate 18 /min Caroline Weiss [facility] 01-01-2024 13:42-0400 Body temperature 97.88 [degF] Caroline Weiss [facility] 06-02-2021 12:00-0400 Body height 157.48 cm Rylee Henning Other [facility] Other 06-02-2021 12:00-0400 Body mass index (BMI) [Ratio] 26.52 kg/m2 Rylee Henning Other [facility] Other 06-02-2021 12:00-0400 Body temperature 98 [degF] Rylee Henning Other [facility] Other 06-02-2021 12:00-0400 Body weight 65.77 kg Rylee Henning Other [facility] Other 06-02-2021 12:00-0400 Respiratory rate 18 /min Rylee Henning Other [facility] Other 06-02-2021 12:00-0400 SaO2% (BldA) [Mass fraction] 95 % Rylee Henning Other [facility] Other Encounters Encounter Date Encounter Type Care Provider Facility Start: 04-26-2024 End: 04-26-2024 ambulatory DYLON SARMIENTO Not Available Start: 04-18-2024 End: 04-18-2024 ambulatory CLEO EDMOND Not Available Start: 04-16-2024 End: 04-16-2024 ambulatory CLEO EDMOND Not Available Start: 04-10-2024 End: 04-10-2024 ambulatory CLEO EDMOND Not Available Start: 04-08-2024 End: 04-08-2024 ambulatory CLEO EDMOND Not Available Start: 04-04-2024 End: 04-04-2024 ambulatory CAROLINE WEISS Not Available Start: 04-04-2024 End: 04-04-2024 ambulatory CAROLINE WEISS Not Available Start: 03-04-2024 End: 03-04-2024 Admission to same day surgery center Caroline Weiss [facility] Start: 03-04-2024 End: 03-04-2024 ambulatory Caroline Weiss [facility] Start: 02-28-2024 End: 02-28-2024 ambulatory DYLON SARMIENTO Not Available Start: 02-21-2024 End: 02-21-2024 ambulatory DYLON DAVIDMER Not Available Start: 01-30-2024 End: 01-30-2024 ambulatory Caroline Weiss Facility[facility] Start: 01-30-2024 End: 01-30-2024 Patient encounter procedure Caroline Weiss [facility] Start: 01-30-2024 End: 01-30-2024 ambulatory CAROLINE Saurabh WEISS Not Available Start: 01-18-2024 End: 01-18-2024 ambulatory DYLON SARMIENTO Not Available Start: 01-01-2024 End: 01-01-2024 ambulatory Caroline Weiss Facility:[facility] Start: 01-01-2024 End: 01-01-2024 Patient encounter procedure Caroline Saurabh Weiss [facility] Start: 12-28-2023 End: 12-28-2023 ambulatory CAROLINE WEISS Not Available Start: 09-27-2023 Bamboo flowsheet Dhiraj Bergman P T Work Phone: [facility] Start: 09-27-2023 Bamboo flowsheet Dhiraj Montano Madalyn P T Work Phone: [facility] Start: 09-27-2023 End: 09-27-2023 ambulatory Dhiraj Bergman PT Work Phone: [facility] Comment on above: Hip pain, right (Joy jose Dx); Right lumbar radiculopathy Start: 09-25-2023 Telephone encounter Valentine rodas MATHEMATICAL ENGINEER Work Phone: [facility] Start: 09-22-2023 Bamboo flowsheet Dhiraj Bergman P T Work Phone: [facility] Start: 09-22-2023 Bamboo flowsheet Dhiraj Montano Madalyn P T Work Phone: [facility] Start: 09-22-2023 End: 09-22-2023 ambulatory DHIRAJ BERGMAN Not Available Start: 09-06-2023 End: 09-06-2023 ambulatory CAROLINE WEISS Not Available Start: 08-01-2023 End: 08-01-2023 ambulatory CAROLINE WEISS Not Available Start: 12-15-2022 End: 05-05-2023 ambulatory VALENTINE JEROME Facility:[facility] Start: 12-02-2022 End: 12-02-[address] DEJON ZHOU Facility:[facility] Start: 06-02-2021 (URG) Urgent Care Visit [facility] Procedures Date Procedure Procedure Detail Performing Clinician Start: 03-04-2024 Repair of hip Caroline ritter Start: 05-12-2020 Hemiarthroplasty of left shoulder Caroline Weiss Start: 12-09-2015 Decompression of med khoa nerve Caroline Weiss Comment on above: right Start: 03-24-2015 left total hip arthr oplasty, press-fit, metal on polyethylene construct Caroline Weiss Cholecystectomy Caroline alfred Dilation and curetta ge of uterus Caroline Weiss lumbar laminectomyL4-5 2 Hood hamegan Merly Comment on above: 1991 Plan of Treatment Date Care Activity Detail Author Start: 04-08-2024 End: 04-08-2024 Patient encounter procedure 04/08/2024 10:50 AM EDT Office Visit [facility] [address] [place] [id number] Soledad Mane, DICER OPERATOR-SERVICE SUPERVISOR [address] [place] [address] [facility] Start: 10-05-2023 End: 10-05-2023 ambulatory 10/05/2023 10:15 AM EST Treatment [facility] [address] [facility] [place] [phone] Dhiraj Bergman, PT [address] [facility] [place] [phone] [facility] Start: 09-27-2023 End: 09-27-2023 ambulatory 09/27/2023 1:15 PM EST Treatment [facility] [address] [facility] [place] [address] Dhiraj Bergman, PT [address] [place] [address] [facility] Start: 09-22-2023 End: 09-22-2023 ambulatory 09/22/2023 10:45 AM EST Evaluation [facility] [address] [place] [address] Dhiraj Bergman, PT [address] [facility] [place] [address] Right hip pain (Primary Dx); Right lumbar radiculopathy; Hip pain, right [facility] Comment on above: Right hip pain (Prim leila Dx); Right lumbar radiculopathy; Hip pain, right Start: 04-14-2023 Influenza vaccination Influenza Vacc ine (#1) [facility] Start: 06-09-2004 Pneumococcal Vaccine : 65+ Years (2 - PCV) Pneumococcal Vaccine: 65+ Years (2 - PCV) [facility] Payers Date Payer Category Payer Private Health Insurance [employer] [place] SUPPLEMENT [id number] 2023-Present [address] [place] [address] Supplement [id number] 2023 Private Health Insurance [id number] 2003 Medicare MEDICARE MEDICAR E RAILROAD [id number] 2003-Present [employer] RAILRO[employer] MEDICARE [address] [address] [place] [address] Medicare [id number] 1959 Medicare [id number] 1940 Unknown [id number] 2.16.840.1.541266.3.579.2. 593 1938 Unknown [id number] 2.16.840.1.645153.3.579.2. 593 1938 Unknown [id number] 2.16.840.1.477845.3.579.2. 727 1938 Unknown [id number] 2.16.840.1.850986.3.579.2. 1938 Unknown [id number] 2.16.840.1.882495.3.579.2. 72 1938 Unknown [id number] 2.16.840.1.284257.3.579.2. 72 1938 Unknown [id number] 2.16.840.1.065934.3.579.2. 1258 1938 Unknown [id number] 2.16.840.1.933924.3.579.2. 1258 1938 Unknown [id number] 2.16.840.1.783954.3.579.2. 1258 1938 Unknown [id number] 2.16.840.1.399402.3.579.2. 1258 1938 Unknown [id number] 2.16.840.1.371695.3.579.2. 1258 1938 Unknown [id number] 2.16.840.1.166206.3.579.2. 1258 1938 Unknown [id number] 2.16.840.1.416342.3.579.2. 1258 1938 Unknown [id number] 2.16.840.1.822241.3.579.2. 1258 1938 Unknown [id number] 2.16.840.1.623661.3.579.2. 1258 1938 Unknown [id number] 2.16.840.1.191906.3.579.2. 1258 1938 Unknown [id number] 2.16.840.1.299937.3.579.2. 1258 1938 Unknown [id number] 2.16.840.1.587794.3.579.2. 1259 1938 Unknown [id number] 2.16.840.1.200892.3.579.2. 9 1938 Unknown [id number] 2.16.840.1.638451.3.579.2. 1259 1938 Unknown [id number] 2.16.840.1.370583.3.579.2. 1258 1938 Unknown [id number] 2.16.840.1.937264.3.579.2. 1259 1938 Unknown [id number] 2.16.840.1.465492.3.579.2. 1258 1938 Unknown [id number] 2.16.840.1.242435.3.579.2. 1259 Private Health Insurance [id number] Medicare [id number] Private Health Insurance [id number] 2.16.840.1.224036.19 Social History Date Type Detail Facility Start: 08-01-2023 Sex Assigned At F [facility] Start: 03-25-2023 Tobacco smoking stat [facility] Never smoked tobacco [facility] Start: 03-25-2023 Tobacco use and exposure Smokeless tobacco non-user [facility] Start: 08-01-2023 Alcohol intake Lifetime non-d louis (finding) [facility] Start: 08-01-2023 History of Social function [facility] Start: 03-25-2023 Alcohol Comment caffeine: 2-3 cups per day [facility] Start: 1940 Sex Assigned At Not on file [facility] Tobacco smoking status No Smokin g Status Entered [facility] Medical Equipment Procedure Code Equipment Code Equipment Original Text Equipment Identifier Dates SHOULDER HEMIARTHROPLASTY Dhiraj Tai DO 05/12/20 Non Biological Unknown [id number] FDA Start: 05-12-2020 HIP TOTAL ARTHRO PLASTY Caroline Weiss DO 03/04/24 Unknown Hip R FDA Start: 03-04-2024 HIP TOTAL ARTHRO PLASTY Weiss DO, Caroline Wiley 03/04/24 Unknown Hip R FDA Start: 03-04-2024 HIP TOTAL ARTHRO PLASTY Weiss DO, Caroline Wiley 03/04/24 Unknown Hip R FDA Start: 03-04-2024 HIP TOTAL ARTHRO PLASTY Weiss DO, Caroline Wiley 03/04/24 Unknown Hip R FDA Start: 03-04-2024 HIP TOTAL ARTHRO PLASTY Weiss DO, Caroline Wiley 03/04/24 Unknown Hip R FDA Start: 03-04-2024 HIP TOTAL ARTHRO PLASTY Weiss DO, Caroline Wiley 03/04/24 Unknown Hip R FDA Start: 03-04-2024 Functional Status Date Assessment Result Facility 01-30-2024 Functional Status No [facility] 01-01-2024 Functional Status N/A [facility] 12-28-2023 Functional Status Symptomatic Af ter Exposure to Contagion No [facility] Clinical Notes 06-02-2021 to 03-11-2024 Note Date & Type Note Facility 03-11-2024 Note Progress Note-Physic khoa Patient: TERESA SMALL Age: 83 years Sex: Female : 1940 Associated Diagnoses: None Author: Theo RIVERO, Queen Estelle FLOWER Procedure Nerve Block Block Type: Gino block. Laterality: Right. Informed consent for anesthesia management: Anesthesia options discussed including nerve block, Description of the procedure, risks, benefits, and alternatives was provided, The patient's questions were addressed. Time out: Confirmed correct patient, procedure and site. Time: Date/Time 03/04/2024 08:02:00. Indication: Block for postoperative pain management as requested by surgeon. Anesthesia Method: IV Sedation with monitored anesthesia care, The patient remained awake and able to interact in a meaningful way throughout the procedure. Preparation: The patient was placed in the following position Supine, Continuous pulse oximetry applied, Using maximal sterile barrier technique per current CMS guidelines including hand hygeine, Guidance (Ultrasound used to identify anatomical landmarks, Using sterile gel and probe covers, Permanent image retained), The site was prepped with ChloraPrep. Procedure: Anesthetic Agent 20cc of 0.5% Ropivicaine with 4mg decadron. pt states she is not allergic to Cortisone, pt's daughter agrees with the pt. , Catheter size 21 guage, Needle was inserted without pain or parasthesia in the conscious patient, Number of attempts 1, Negative attempt at aspiration for blood, Medial and lateral spread of the anesthestic was observed, Periodic negative attempts at aspiration of blood were made as the local was injected, No pain or parathesia were elicited with injection of the anesthetic in the conscious patient, It was idetified that the correct anesthetic agent was administered to the correct site. Complications: The patient tolerated the procedure as expected, Procedure completed by Queen Theo CRNA under my supervision. [facility] Comment on above: Result Comment: Elec tronically Signed By: Theo RIVERO CRNA, Queen Estelle\.br\Date and Time Signed: 03/04/24 08:15 EDT wrong folder 03-04-2024 Note Progress Note-Physic khoa Patient: TERESA SMALL Age: 83 years Sex: Female : 1940 Associated Diagnoses: None Author: Alex Humphries Jr, DO Preoperative Information Anesthesia Preop Info: Time patient last ate or drank 03/04/2024 00:00:00. Anesthesia history: Patient history: None. Family history+: None. Informed consent: Signed by patient. Re-evaluation prior to induction: Initial evaluation reviewed: No significant change. Review of Systems Eye: Negative except as documented in history of present illness. Ear/Nose/Mouth/Throat: Negative except as documented in history of present illness. Respiratory: Negative except as documented in history of present illness. Cardiovascular: Negative except as documented in history of present illness. Musculoskeletal: Negative except as documented in history of present illness. Neurologic: Negative except as documented in history of present illness. Health Status Allergies: Allergic Reactions (Selected) Severity Not Documented Cortisone- Light headed, high blood pressure and fatigue. Problem list: All Problems Osteoarthritis / SNOMED CT 4998046388 / Confirmed Nocturia / SNOMED CT 197496954 / Confirmed HTN (hypertension) / SNOMED CT 1211607119 / Confirmed Sleep disturbance / SNOMED CT 11858308 / Confirmed Hematuria / SNOMED CT 048162867 / Confirmed Resolved: Thyroid nodule / SNOMED CT 594381522 Resolved: Carpal tunnel syndrome / SNOMED CT 99827463 Resolved: At risk for falls / SNOMED CT 445136053 Problem added when Risk for Falls Careplan was initiated. Resolved due to patient discharge. Histories Procedure history: Hemiarthroplasty of left shoulder ([id number]) on 05/12/2020 at 80 Years. Carpal tunnel release ([id number]) on 12/09/2015 at 75 Years. Comments: 12/09/2015 16:44 JUVE Matthews RN, Ct right left total hip arthroplasty, press-fit, metal on polyethylene construct on 03/24/2015 at 74 Years. lumbar laminectomyL4-5. Comments: 03/10/2015 11:14 TEJINDERT Aylin Morgan RN, Tanesha 1988 Cholecystectomy ([id number]). D&C - Dilatation and curettage ([id number]). Social History Social & Psychosocial Habits Alcohol 03/04/2024 Risk Assessment: Denies Alcohol Use Substance Abuse 03/04/2024 Risk Assessment: Denies Substance Abuse Tobacco 03/04/2024 Risk Assessment: Denies Tobacco Use . Physical Examination Airway: Mallampati classification: II (soft palate, fauces, uvula visible). Respiratory: adequate air exchange. Cardiovascular: Regular rhythm. Plan [place] [employer] Anesthesiologists (ASA) physical status classification: Class II. Anesthetic Preoperative Plan: Anesthesia General. Regional Spinal. [facility] Comment on above: Result Comment: Elec tronically Signed By: Alex Humphries Jr, DO\.br\Date and Time Signed: 03/04/24 16:40 EDT 03-04-2024 Note Interdisciplinary No te - PT PT Evaluation completed with an AMPAC score of 18/24. Pt was able to perform bed mobility with Min A and transfers with SBA. Pt was able to ambulate and perform steps with CGA. Pt would be functionally safe to return home with caregiver assist and Ortho 360 to follow [facility] 03-04-2024 Note Progress Note-Physic khoa Patient: TERESA SMALL Age: 83 years Sex: Female : 1940 Associated Diagnoses: None Author: Alex Humphries Jr, DO Postoperative Information Postoperative disposition: Postoperative disposition: To PACU. Optimetrix number: Optimetrix number [id number]. Anesthetic utilized: General. Regional: Spinal. Health Status Allergies: Nonallergic Reactions (Selected) Severity Not Documented Cortisone- Light headed, high blood pressure and fatigue. Physical Examination Vital Signs 03/04/2024 10:16 EDT Heart Rate Monitored 69 bpm SpO2 98 % 03/04/2024 10:16 EDT Respiratory Rate 16 br/min 03/04/2024 10:13 EDT Systolic Blood Pressure 127 mmHg Diastolic Blood Pressure 83 mmHg Mean Arterial Pressure, Monitered 97 mmHg 03/04/2024 10:05 EDT Temperature Temporal Artery 36.1 DegC LOW Heart Rate Monitored 64 bpm Respiratory Rate Monitored 17 br/min Systolic Blood Pressure 112 mmHg Diastolic Blood Pressure 86 mmHg Mean Arterial Pressure, Cuff 95 mmHg SpO2 100 % 03/04/2024 9:55 EDT Heart Rate Monitored 67 bpm Respiratory Rate Monitored 17 br/min Systolic Blood Pressure 116 mmHg Diastolic Blood Pressure 53 mmHg LOW Mean Arterial Pressure, Cuff 74 mmHg SpO2 99 % 03/04/2024 9:50 EDT Heart Rate Monitored 63 bpm Respiratory Rate Monitored 16 br/min Systolic Blood Pressure 101 mmHg Diastolic Blood Pressure 66 mmHg Mean Arterial Pressure, Cuff 78 mmHg SpO2 100 % 03/04/2024 9:45 EDT Heart Rate Monitored 68 bpm Respiratory Rate Monitored 12 br/min Systolic Blood Pressure 110 mmHg Diastolic Blood Pressure 53 mmHg LOW Mean Arterial Pressure, Cuff 72 mmHg SpO2 100 % 03/04/2024 9:40 EDT Temperature Temporal Artery 36.1 DegC LOW Heart Rate Monitored 76 bpm Respiratory Rate Monitored 15 br/min Systolic Blood Pressure 110 mmHg Diastolic Blood Pressure 62 mmHg Mean Arterial Pressure, Cuff 78 mmHg SpO2 100 % Pain Assessment: Controlled. General: Awake, Alert, Appropriate. Respiratory: Adequate air exchange. Cardiovascular: Stable, Normal peripheral perfusion. Neurological: Normal sensory function, Normal motor function. Assessment Anesthetic outcome No anesthetic complications noted. Adequate pain relief. able to void without difficulty, able to ambulate with assist, tolerating PO intake, no N/V. Review / Management Condition: Stable. Plan Transfer/Discharge: Transfer/Discharge Discharge when meets criteria ( To home ). [facility] Comment on above: Result Comment: Elec tronically Signed By: Alex Humphries Jr, DO\.br\Date and Time Signed: 03/04/24 16:39 EDT 03-04-2024 Evaluation + Plan note Extrac desiree from: Title:ANES Post-operative Note---General Author: Alex Humphries Jr, DO Date:03/04/24 Plan Transfer/Discharge: Transfer/Discharge Discharge when meets criteria ( To home ). Extracted from: Title:ANES Pre-operative Note 2022 Author:Alex Humphries Jr, DO Date:03/04/24 Plan [place] [employer]esthesiologists (ASA) physical status classification: Class II. Anesthetic Preoperative Plan: Anesthesia General. Regional Spinal. [facility]07-22-2024 Hospital Discharge instructions Patient Education 03/04/2024 10:32:32 Post Op Patient Instructions - FT (Custom) (CUSTOM) 03/04/2024 10:32:29 How to Use an Incentive Spirometer How to Use an Incentive Spirometer An incentive spirometer is a tool that measures how well you are filling your lungs with each breath. Learning to take long, deep breaths using this tool can help you keep your lungs clear and active. This may help to reverse or lessen your chance of developing breathing (pulmonary) problems, especially infection. You may be asked to use a spirometer: After a surgery. If you have a lung problem or a history of smoking. After a long period of time when you have been unable to move or be active. If the spirometer includes an indicator to show the highest number that you have reached, your health care provider or respiratory therapist will help you set a goal. Keep a log of your progress as told by your health care provider. What are the risks? Breathing too quickly may cause dizziness or cause you to pass out. Take your time so you do not get dizzy or light-headed. If you are in pain, you may need to take pain medicine before doing incentive spirometry. It is harder to take a deep breath if you are having pain. How to use your incentive spirometer 1.Sit up on the edge of your bed or on a chair. 2.Hold the incentive spirometer so that it is in an upright position. 3.Before you use the spirometer, breathe out normally. 4.Place the mouthpiece in your mouth. Make sure your lips are closed tightly around it. 5.Breathe in slowly and as deeply as you can through your mouth, causing the piston or the ball to rise toward the top of the chamber. 6.Hold your breath for 3 5 seconds, or for as long as possible. If the spirometer includes a basketball coach indicator, use this to guide you in breathing. Slow down your breathing if the indicator goes above the marked areas. 7.Remove the mouthpiece from your mouth and breathe out normally. The piston or ball will return tothe bottom of the chamber. 8.Rest for a few seconds, then repeat the steps 10 or more times. Take your time and take a few normal breaths between deep breaths so that you do not get dizzy or light-headed. Do this every 1 2 hours when you are awake. 9.If the spirometer includes a goal marker to show the highest number you have reached (best effort), use this as a goal to work toward during each repetition. 10.After each set of 10 deep breaths, cough a few times. This will help to make sure that your lungs are clear. If you have an incision on your chest or abdomen from surgery, place a pillow or a rolled-up towel firmly against the incision when you cough. This can help to reduce pain while taking deep breaths and coughing. General tips When you are able to get out of bed: ?Walk around often. ?Continue to take deep breaths and cough in order to clear your lungs. Keep using the incentive spirometer until your health care provider says it is okay to stop using it. If you have been in the hospital, you may be told to keep using the spirometer at home. Contact a health care provider if: You are having difficulty using the spirometer. You have trouble using the spirometer as often as instructed. Your pain medicine is not giving enough relief for you to use the spirometer as told. You have a fever. Get help right away if: You develop shortness of breath. You develop a cough with bloody mucus from the lungs. You have fluid or blood coming from an incision site after you cough. Summary An incentive spirometer is a tool that can help you learn to take long, deep breaths to keep your lungs clear and active. You may be asked to use a spirometer after a surgery, if you have a lung problem or a history of smoking, or if you have been inactive for a long period of time. Use your incentive spirometer as instructed every 1 2 hours while you are awake. If you have an incision on your chest or abdomen, place a pillow or a rolled-up towel firmly against your incision when you cough. This will help to reduce pain. Get help right away if you have shortness of breath, you cough up bloody mucus, or blood comes fromyour incision when you cough. This information is not intended to replace advice given to you by your health care provider. Make sure you discuss any questions you have with your health care provider. Document Revised: 10/19/2020 Document Reviewed: 10/19/2020 [facility] [employer] Patient Education 2022 [employer]ufind. 02/29/2024 17:27:08 Weiss - Hip Replacement Arthroplasty (CUSTOM) [place], [place] [facility] DISCHARGE INSTRUCTIONS HIP REPLACEMENT ARTHROPLASTY INCISION CARE: Mepilex dressing can get wet with showers. Please remove 10 days after surgery per instruction sheet. If ronn present, please coordinate removal 21 days after surgery with office staff. Please notify the office if any increase in redness, tenderness, drainage, fever, or wound separation is notedbeyond this point. Compression stockings may be helpful if any significant or uncomfortable swelling in the legs is noted postoperatively. Use and removal instructions should be given by physical therapy. If the swelling is below the knee, knee high compression stockings may suffice. If this does cause swelling into the thigh region, waist high compression stockings may be beneficial as well. These can be obtained from most pharmacies, or can be obtained from the hospital or through Home Health. The mild grade compression stockings are best used initially, and dislocation precautions must be maintained. DISLOCATION PRECAUTIONS: Continue to use the abduction pillow between the knees at all times while in bed. This abduction pillow should be removed while walking and performing physical therapy exercises; otherwise, to be used while in bed. This is to be maintained for four weeks postoperatively. At that time you may begin using a regular bed pillow between your knees at night as needed. You should continue to avoid crossing the knees or crossing the legs for two months postoperatively. Sitting in a chair should always be such that the knees are kept below the level of the hips to avoid increased flexion of the hip, possibly causing dislocation. MEDICATIONS: You may resume your home medications at the time of discharge. Aspirin 325 mg EC oral once a day for 4 weeks for blood clot prevention with meals. Please notify your doctor if you have a stomach sensitivity to Aspirin or history of previous stomach ulcers. [facility] Discharge Instructs for Hip Replace.Page 2 Medications Cont. Pain medication has been prescribed as well. You may continue to use the pain medication every fourhours as needed. Any narcotic pain medication can cause side effects including stomach upset, constipation, or light-headedness. You should not drive or operate machinery, or use alcohol while using the narcotic pain medication. You should not use other pain medications with this prescription pain medication unless further directed by your physician. PHYSICAL THERAPY DISLOCATION PRECAUTIONS: Continue the range of motion and strengthening exercises initiated in Physical Therapy in the hospital. Again, do not cross legs, internally rotate the legs, or flex the hip above 90 degrees for six months postoperatively. Continue weight bearing, as ordered, to the operated hip for four to six weeks as directed in Physical Therapy. This will be with the use of a walker or crutches. After four or six weeks you may thenprogress to the use of one crutch, or a cane. A quad-cane is preferred as this is more stable. Physical therapy as begun in the hospital will continue at home, possible with the ophthalmology assistant of Home Health Physical Therapy or in the hospital as an outpatient. When you have become independent withthe physical therapy program, this will then be discontinued as a supervised program and you will be instructed to continue the physical therapy exercises at home. Please call your [facility] with any questions or concerns [phone] EXT [phone]. DRIVING: Driving is not recommended for 4-6 week pending progress. Driving too soon, you are considered an impaired moving van driver, and this could be a problem. It is therefore advised not to drive until after your first office visit following surgery FOLLOW-UP OFFICE VISIT: Caroline Weiss DO [facility] [address] [place] [address] Reviewed: 01-03 Follow Up Care 01/03/2024 15:09:44 With:MARIANA Stephens Address: [address] [place] [phone]- Business (1) When:04/02/2024 10:30:00 Comments:Keep scheduled appointment [facility]07-22-2024 NotePatient Education - Text Pulmonary Medicine How to Use an Incentive Spirometer An incentive spirometer is a tool that measures how well you are filling your lungs with each breath. Learning to take long, deep breaths using this tool can help you keep your lungs clear and active. This may help to reverse or lessen your chance of developing breathing (pulmonary) problems, especially infection. You may be asked to use a spirometer: ? After a surgery. ? If you have a lung problem or a history of smoking. ? After a long period of time when you have been unable to move or be active. If the spirometer includes an indicator to show the highest number that you have reached, your health care provider or respiratory therapist will help you set a goal. Keep a log of your progress as told by your health care provider. What are the risks? ? Breathing too quickly may cause dizziness or cause you to pass out. Take your time so you do not get dizzy or light-headed. ? If you are in pain, you may need to take pain medicine before doing incentive spirometry. It is harder to take a deep breath if you are having pain. How to use your incentive spirometer 1. Sit up on the edge of your bed or on a chair. 2. Hold the incentive spirometer so that it is in an upright position. 3. Before you use the spirometer, breathe out normally. 4. Place the mouthpiece in your mouth. Make sure your lips are closed tightly around it. 5. Breathe in slowly and as deeply as you can through your mouth, causing the piston or the ball torise toward the top of the chamber. 6. Hold your breath for 3?5 seconds, or for as long as possible. ? If the spirometer includes a basketball coach indicator, use this to guide you in breathing. Slow down your breathing if the indicator goes above the marked areas. 7. Remove the mouthpiece from your mouth and breathe out normally. The piston or ball will return to the bottom of the chamber. 8. Rest for a few seconds, then repeat the steps 10 or more times. ? Take your time and take a few normal breaths between deep breaths so that you do not get dizzy orlight-headed. ? Do this every 1?2 hours when you are awake. 9. If the spirometer includes a goal marker to show the highest number you have reached (best effort), use this as a goal to work toward during each repetition. 10. After each set of 10 deep breaths, cough a few times. This will help to make sure that your lungs are clear. ? If you have an incision on your chest or abdomen from surgery, place a pillow or a rolled-up towel firmly against the incision when you cough. This can help to reduce pain while taking deep breathsand coughing. General tips ? When you are able to get out of bed: ? Walk around often. ? Continue to take deep breaths and cough in order to clear your lungs. ? Keep using the incentive spirometer until your health care provider says it is okay to stop usingit. If you have been in the hospital, you may be told to keep using the spirometer at home. Contact a health care provider if: ? You are having difficulty using the spirometer. ? You have trouble using the spirometer as often as instructed. ? Your pain medicine is not giving enough relief for you to use the spirometer as told. ? You have a fever. Get help right away if: ? You develop shortness of breath. ? You develop a cough with bloody mucus from the lungs. ? You have fluid or blood coming from an incision site after you cough. Summary ? An incentive spirometer is a tool that can help you learn to take long, deep breaths to keep yourlungs clear and active. ? You may be asked to use a spirometer after a surgery, if you have a lung problem or a history of smoking, or if you have been inactive for a long period of time. ? Use your incentive spirometer as instructed every 1?2 hours while you are awake. ? If you have an incision on your chest or abdomen, place a pillow or a rolled- up towel firmly against your incision when you cough. This will help to reduce pain. ? Get help right away if you have shortness of breath, you cough up bloody mucus, or blood comes from your incision when you cough. This information is not intended to replace advice given to you by your health care provider. Make sure you discuss any questions you have with your health care provider. Document Revised: 10/19/2020 Document Reviewed: 10/19/2020 [employer] Patient Education ? 2022 [employer]ufind. [place], [place] [facility] DISCHARGE INSTRUCTIONS HIP REPLACEMENT ARTHROPLASTY INCISION CARE: Mepilex dressing can get wet with showers. Please remove 10 days after surgery per instruction sheet. If ronn present, please coordinate removal 21 days after surgery with office staff. Please notify the office if any increase in redness, tenderness, draina (more content not included)...[facility]07-22-2024 NoteProgress Note-Physician Patient: TERESA SMALL Age: 83 years Sex: Female : 1940 Associated Diagnoses: None Author: Theo RIVERO, Queen Estelle FLOWER Procedure Nerve Block Block Type: Gino block. Laterality: Right. Informed consent for anesthesia management: Anesthesia options discussed including nerve block, Description of the procedure, risks, benefits, and alternatives was provided, The patient's questions were addressed. Time out: Confirmed correct patient, procedure and site. Time: Date/Time 03/04/2024 08:02:00. Indication: Block for postoperative pain management as requested by surgeon. Anesthesia Method: IV Sedation with monitored anesthesia care, The patient remained awake and able to interact in a meaningful way throughout the procedure. Preparation: The patient was placed in the following position Supine, Continuous pulse oximetry applied, Using maximal sterile barrier technique per current [facility] guidelines including hand hygeine, Guidance (Ultrasound used to identify anatomical landmarks, Using sterile gel and probe covers, Permanent image retained), The site was prepped with ChloraPrep. Procedure: Anesthetic Agent 20cc of 0.5% Ropivicaine with 4mg decadron. pt states she is not allergic to Cortisone, pt's daughter agrees with the pt. , Catheter size 21 guage, Needle was inserted without pain or parasthesia in the conscious patient, Number of attempts 1, Negative attempt at aspiration for blood, Medial and lateral spread of the anesthestic was observed, Periodic negative attemptsat aspiration of blood were made as the local was injected, No pain or parathesia were elicited with injection of the anesthetic in the conscious patient, It was idetified that the correct anestheticagent was administered to the correct site. Complications: The patient tolerated the procedure as expected, Procedure completed by Queen Theo CRNA under my supervision.[facility] Comment on above:Result Comment: Electronically Signed By: Theo RIVERO CRNA, Queen Estelle\.br\Date and Time Signed: 03/04/24 08:15 [id number] NotePatient Education - Text [place], [place] [facility] DISCHARGE INSTRUCTIONS HIP REPLACEMENT ARTHROPLASTY INCISION CARE: Mepilex dressing can get wet with showers. Please remove 10 days after surgery per instruction sheet. If ronn present, please coordinate removal 21 days after surgery with office staff. Please notify the office if any increase in redness, tenderness, drainage, fever, or wound separation is notedbeyond this point. Compression stockings may be helpful if any significant or uncomfortable swelling in the legs is noted postoperatively. Use and removal instructions should be given by physical therapy. If the swelling is below the knee, knee high compression stockings may suffice. If this does cause swelling into the thigh region, waist high compression stockings may be beneficial as well. These can be obtained from most pharmacies, or can be obtained from the hospital or through Home Health. The mild grade compression stockings are best used initially, and dislocation precautions must be maintained. DISLOCATION PRECAUTIONS: Continue to use the abduction pillow between the knees at all times while in bed. This abduction pillow should be removed while walking and performing physical therapy exercises; otherwise, to be used while in bed. This is to be maintained for four weeks postoperatively. At that time you may begin using a regular bed pillow between your knees at night as needed. You should continue to avoid crossing the knees or crossing the legs for two months postoperatively. Sitting in a chair should always be such that the knees are kept below the level of the hips to avoid increased flexion of the hip, possibly causing dislocation. MEDICATIONS: You may resume your home medications at the time of discharge. Aspirin 325 mg EC oral once a day for 4 weeks for blood clot prevention with meals. Please notify your doctor if you have a stomach sensitivity to Aspirin or history of previous stomach ulcers. [facility] Discharge Instructs for Hip Replace. Page 2 Medications Cont. Pain medication has been prescribed as well. You may continue to use the pain medication every fourhours as needed. Any narcotic pain medication can cause side effects including stomach upset, constipation, or light-headedness. You should not drive or operate machinery, or use alcohol while using the narcotic pain medication. You should not use other pain medications with this prescription pain medication unless further directed by your physician. PHYSICAL THERAPY ? DISLOCATION PRECAUTIONS: Continue the range of motion and strengthening exercises initiated in Physical Therapy in the hospital. Again, do not cross legs, internally rotate the legs, or flex the hip above 90 degrees for six months postoperatively. Continue weight bearing, as ordered, to the operated hip for four to six weeks as directed in Physical Therapy. This will be with the use of a walker or crutches. After four or six weeks you may thenprogress to the use of one crutch, or a cane. A quad-cane is preferred as this is more stable. Physical therapy as begun in the hospital will continue at home, possible with the ophthalmology assistant of Home Health Physical Therapy or in the hospital as an outpatient. When you have become independent withthe physical therapy program, this will then be discontinued as a supervised program and you will be instructed to continue the physical therapy exercises at home. Please call your [facility] with any questions or concerns [phone] EXT [phone]. DRIVING: Driving is not recommended for 4-6 week pending progress. Driving too soon, you are considered an impaired moving van driver, and this could be a problem. It is therefore advised not to drive until after your first office visit following surgery FOLLOW-UP OFFICE VISIT: Caroline Weiss, DO [facility] [address] [place] [address] Reviewed: 01-03[facility]05-16-2024 Hospital Discharge instructions Follow Up Care 12/28/2023 11:47:11 With:Caroline Weiss Address: [address] [place] [phone]- Business (1) When: Unknown Comments:Keep scheduled appointment [facility]05-16-2024 Note [id number] 09-25-2023 Telephone encounter Note* Telephone Encounter - Iesha Alcantara KAREN - 09/25/2023 8:18 AM EST Pt daughter called stated PT and dr. duffy suggested she get some mobic to help to help with her muscle aches, arthritis is agreeable please send script to [facility] [id number] Miscellaneous Notes* Telephone Encounter - Iesha AlcantaraKAREN - 09/25/2023 8:18 AM EST Pt daughter called stated PT and dr. duffy suggested she get some mobic to help to help with her muscle aches, arthritis is agreeable please send script to [facility] documented in this encounterUniversity [facility] [id number] Evaluation note* Encounter Date Diagnosis Assessment Notes Treatment Notes Treatment Clinical Notes May, Contact with and (suspected) exposure to other viral communicable diseases (ICD-10 - Z20.828) May, Viral upper respiratory illness (ICD-10 - J06.9) May, Other Additional time spent conducting pre-visit phone call, screening for symptoms, instructions on social distancing, application and removal of PPE, and cleaning of examination room, equipment and supplies was preformed. Patient education given for testing methodology and results. Patient care instructions given in writting by [facility] At Home document. [employer] Other Evaluation + Plan note No data available for this section [facility] Future Appointments Appointment Date:03/04/2024 11:15:00 AM Scheduled Provider: Location:[facility] Diagnosis Osteoarthritis, unspecified osteoarthritis type, unspecified site- Primary Hip pain, right- Primary Pain in joint, pelvic region and thigh Right lumbar radiculopathy Thoracic or lumbosacral neuritis or radiculitis, unspecified [facility] Diagnosis Hip pain, right- Primary Pain in joint, pelvic region and thigh Right lumbar radiculopathy Thoracic or lumbosacral neuritis or radiculitis, unspecified [facility] this [facility] Narrative - Reported* Type Description Date Medical History THRYOID NODULES Medical History IGT Surgical History GALLBLADDER 1974 Surgical History BACK SURGERY 1988 Hospitalization History SEE ABOVE SURGERY Hospitalization History CHILD X'S 6 [facility] Other Hospital Discharge instructions No data available for this section [facility] No data available for this section [facility] Summary Purpose Family History No Family History Records Found No data available for this section No data available for this section No Family History Records FoundNo Family History Records Found No data available for this section No Family History Records FoundNo Family History Records FoundNo Family History Records FoundNo Family History Records FoundNo Family History Records FoundNo Family History Records Found Advance Directives No Advanced Directives Records FoundNo Advanced Directives Records FoundNo Advanced Directives Records FoundNo Advanced Directives Records FoundNo Advanced Directives Records FoundNo Advanced Directives Records FoundNo Advanced Directives Records FoundNo Advanced Directives Records FoundNo Advanced Directives Records Found Additional Source Comments REASON FOR VISIT (unrecogniz ed section and content) Specialty Diagnoses / Procedures Referred By Contac t Referred To Contact Physical Therapy Diagnoses Hip pain, right Procedures [place] OFFICE/OUTPATIENT NEW HIGH MDM 60 MINUTES Caroline Weiss, DO [address] [place] [address] Dhiraj Bergman, PT [address] [place] [address] Referral ID Status Reason Start Date Expiration Date Visits Requested Visits Authorized [id number] Authorized Specialty Services Required 09/14/2023 03/12/2024 30 30 INFORMATION SOURCE (unrecogn ized section and content) DATE CREATED AUTHOR 12/22/2022 [facility] DATE CREATED AUTHOR AUTHOR'S ORGANIZ ATION 01/31/2024 Caceres Chandler [facility] DATE CREATED AUTHOR AUTHOR'S ORGANIZ ATION 03/04/2024 Caceres Chandler [facility] DATE CREATED AUTHOR AUTHOR'S ORGANIZ ATION 03/06/2024 [facility] DATE CREATED AUTHOR AUTHOR'S ORGANIZ ATION 03/13/2024 Morris Chandler [facility] DATE CREATED AUTHOR AUTHOR'S ORGANIZ ATION 04/28/2024 [facility] Care Teams (unrecognized sec tion and content) Sql Tech Relationship Specialty Start Date End Date Dejon Zhou MD [address] [place] [address] PCP - General Internal Medicine 03/09/23 Sql Tech Relationship Specialty Start Date End Date Dejon Zhou MD [address] [place] [address] PCP - General Internal Medicine 03/09/23 Sql Tech Relationship Specialty Start Date End Date Dejon Zhou MD [address] [facility] [address] [place] [address] PCP - General Internal Medicine 03/09/23 Sql Tech Relationship Specialty Start Date End Date Dejon Zhou MD [address] [facility] [address] [place] [address] PCP - General Internal Medicine 03/09/23 FOR RECORDS PERTAINING TO PATIENTS WHO ARE OR HAVE BEEN ENROLLED IN A CHEMICAL DEPENDENCY/SUBSTANCEABUSE PROGRAM, SOME INFORMATION MAY BE OMITTED. This clinical summary was aggregated from multiple sources. Caution should be exercised in using it in the provision of clinical care. This summary normalizes information from multiple sources, and as a consequence, information in this document may materially change the coding, format and clinical context of patient data. In addition, data may be omitted in some cases. CLINICAL DECISIONS SHOULD BE BASED ON THE PRIMARY CLINICAL RECORDS. [employer] [facility] provides no warranty or guarantee of the accuracy or completeness of information in this document.
== END 2024-04-29 11:30 | disposition home or self-care (01) ==
LOC: RAD 11:31
PROVIDERS: PCP Internal Medicine; Visit Provider Physician Assistant
DX: S63.502A Unspecified sprain of left wrist, initial encounter (principal); M25.532 Pain in left wrist; M19.032 Primary osteoarthritis, left wrist
CPT/HCPCS: 73110

== ENCOUNTER 2024-05-22 12:17 | Emergency (ER) | payer MEDICARE, SELFPAY ==
[2024-05-22 12:19] VITALS: BP 163/81; PULSE 84; TEMP 36.4; O2SAT 99; BMI 29.5
--- OUTSIDE RECORDS SUMMARY | 2024-05-22 12:34 | XMS_ITS | CCD ---
Author Organization [facility] Care Team Providers Care Supervisor Lime Name Role Phone Rylee Henning Unavailable DR DEJON ZHOU Primary Care Unavailable DANYEL GUERRERO Consulting Unavailable PAY ., DR BROWN Attending Unavailable PAY ., DR BROWN Admitting Unavailable LARS PAGE Consulting Unavailable VALENTINE JEROME Attending Unavailable JUSTUS, VALENTINE Admitting Unavailable DANNY, DR BEEBE Primary Care Unavailable ANGEL GARCIA Consulting Unavailable VALENTINE JEROME Consulting Unavailable Dejon Zhou MD Primary Care Provider [phone] DEJON ZHOU Primary Care Physician Angella Shoemaker Unavailable Liyah, Caroline Mederos Attending Unavailable Pelletier, Caroline T Referring Unavailable Pelletier, Caroline T Admitting Unavailable Pelletier, Caroline T Referring Unavailable Pelletier, Caroline T Admitting Unavailable Pelletier, Caroline T Attending Unavailable Pelletier, Caroline T Admitting Unavailable Pelletier, Caroline T Referring Unavailable Pelletier, Caroline T Attending Unavailable Pelletier, Caroline T Referring Unavailable Pelletier, Caroline T Attending Unavailable Pelletier, Caroline T Admitting Unavailable Pelletier, Caroline T Admitting Unavailable Pelletier, Caroline T Attending Unavailable Pelletier, Caroline T Referring Unavailable PELLETIER, CAROLINE T Attending Unavailable ZURDODHIRAJ Attending Unavailable PELLETIER, CAROLINE T Referring Unavailable ZURDODHIRAJ Attending Unavailable PELLETIER, CAROLINE T Referring Unavailable PELLETIER, CAROLINE T Attending Unavailable PELLETIER, CAROLINE T Referring Unavailable PELLETIER, CAROLINE T Referring Unavailable HEMMER, DYLON Puentes Attending Unavailable PELLETIER, CAROLINE Mederos Attending Unavailable HEMMER, DYLON Puentse Attending Unavailable HEMMER, DYLON Puentes Attending Unavailable PELLETIER, CAROLINE T Referring Unavailable PELLETIER, CAROLINE T Attending Unavailable BLACKSTON, CLEO Mederos Attending Unavailable PELLETIER, CAROLINE T Referring Unavailable BLACKSTON, CLEO Mederos Attending Unavailable PELLETIER, CAROLINE T Referring Unavailable BLACKSTON, CLEO Mederos Attending Unavailable PELLETIER, CAROLINE T Referring Unavailable BLACKSTON, CLEO Mederos Attending Unavailable PELLETIER, CAROLINE T Referring Unavailable HEMMER, DYLON Puentes Attending Unavailable MAYITO, CLEO Mederos Attending Unavailable LIYAH, CAROLINE Mederos Referring Unavailable MAYITO, CLEO Mederos Attending Unavailable LIYAH, CAROLINE Mederos Referring Unavailable CLEO EDMOND Attending Unavailable LIYAH, CAROLINE Mederos Referring Unavailable LIYAH, CAROLINE Mederos Attending Unavailable LIYAH, CAROLINE Mederos Referring Unavailable Allergies Allergy Classification Reported Allergen(s) Allergy Type Date of Onset Reaction(s) Facility (1 source) Darcet-N 100 Drug allergy (disorder) [address] [facility] Repository (4 sources) Cortisone; Translations: [cortisone] Drug Allergy Lightheadedness (finding), Fatigue (finding) [facility] Comment on above: steroid cortisone in jection [...] po q 4 prn hip surgical pain, [facility], 158.7, cm, 02/01/24 7:28:00 EDT, Height/Length [...] day(s), # 30 tab(s), Refills(s) 0, Pharmacy: [facility], 158.7, cm, 02/01/24 7:28:00 EDT, Height/Length [...] day(s), # 20 cap(s), Refills(s) 0, Pharmacy: [facility], 158.7, cm, 02/01/24 7:28:00 EDT, Height/Length Dosing, 65.7, kg, 02/01/24 7:28:00 EDT, Weight Dosing Start Date: 02/29/24 Stop Date: 03/05/24 Status: Ordered Start: 12-01-2022 take 1 capsule by [facility] every six hours cephalexin (Keflex) 500 MG capsule 500 mg every 6 (six) hours. 0 12/01/2022 Active docusate sodium 100 mg oral capsule (1 source) Start: 02-29-2024 take 1 capsule by mouth twice daily Colace 100 mg Cap 100 mg = 1 cap(s), Oral, BID, # 20 cap(s), Refills(s) 0, Pharmacy: [facility], 158.7, cm, 02/01/24 7:28:00 EDT, Height/Length [...] head and reamings IMPLANTS UTILIZED: The DePuy Toombs #3 Press-Fit stem, a Sector Gription 50 [...] signed and witnessed. X-rays support grade 4 [id number] disease. She has activity of daily living [...] The liner was impacted in place. The Toombs stem was impacted in place and it was retrialed. The Gutierrez taper was cleansed, dried, and a 28+5 metallic head was impacted, reduced, and taken through arc of motion and deemed stable. After copious irrigation two 2.5 mm drill bit holes were placed in the greater trochanter for repair of the capsule and external rotator. Capsule was closed with 0 Vicryl suture. Mwituo-ijrlwgy-hcqu technique was performed with the Hewson suture passer. Anatomic repair was achieved. Remaining [...] count correct SPECIMEN: Bone PATIENT CONDITION: Satisfactory Caroline Pelletier D.O. ca Dictated: 03/04/2024 [id number] Transcribed: 03/04/2024 Normal [facility] Comment on above: Result Comment: Elec tronically Signed By: Caroline Pelletier DO\.br\Date and Time Signed: 03/07/24 12:44 EDT Surgical Pathology Reporton 03-06-2024 Surgical Pathology Report [facility] [address] [place] [address]- Surgical Pathology Report Collected Date/Time: 03/04/2024 09:01 EDT Pathologist: Vahid Finnegan MD Received Date/Time: 03/04/2024 11:03 EDT Caroline Pelletier DO, DO, Michael T 07 Surgical Pathology [...] shine. It is trisected and has a bcuk/pink smooth homogenous appearance. Cross-sectioning through the femoral head contains a cystic area measuring 0.5 x 0.5 cm and is adjacent to the articular surface. Also received in the container are multiple fragments of buck/pink/light red/yellow bone and soft tissue measuring in aggregate 5 x 4.5 x 2.5 cm. A billing customer service representative sections are submitted in a total of three cassettes as follows: 1-2: Soft tissue 3: Bone after decalcification (DC) DC:MCA Microscopic Description Microscopic examination performed unless gross only specified. Normal [facility] Comment on above: Performed By: #### [id number] #### [facility] [address] [place] [address] Main OR Intraoperative Recor don 03-05-2024 Main OR Intraoperative Record Main OR Intraoperative Record IntraOp Document Type FT Summary Primary Physician: Caroline Pelletier DO Finalized Date/Time: 03/05/24 14:02:50 Pt. Name: GEOVANNY TERESAVINICIUS Richardson/Sex: 1940 Female Med Rec #: [id number] Physician: Caroline Pelletier DO Financial #: [id number] Pt. Type: A Room/Bed: [facility] Admit/Disch: 03/04/24 05:56:12 - 03/04/24 15:10:00 Institution: Case Times FT Entry 1 Patient Times In Room 03/04/24 08:23:00 Out Room 03/04/24 09:38:00 Procedure Times Start 03/04/24 08:46:00 Stop 03/04/24 09:33:00 Anesthesia Times Start 03/04/24 08:23:00 Stop 03/04/24 09:38:00 Block Timeout w03/04/24 07:54:00 Anesthesia Last Modified By: Abhay Schultz Ii 03/04/24 09:42:00 General Comments: BLOCK DONE BY MUNDO RODRIGUES WITH DR. HUMPHRIES SECRETARY SPECIALIST AND EMILY WALLIS ASSISTING. PATIENT VITAL SIGNS HR 74 BPM AND SP02 99%. /EMILY HENLEY SPINAL ANESTHESIA DONE AT 0829 BY MUNDO RODRIGUES. /EMILY HENLEY 03/05/24 Chart opened to review and send charges [facility] Case Attendance FT Entry 1 Entry 2 Entry 3 Case Attendee Theo RIVERO CRNA, Clifford Caroline Pelletier DO Fernández SPECIAL DISTRIBUTION CLERKChelo Role Performed FARM OPERATIONS MANAGER Surgeon - Primary SPECIAL DISTRIBUTION CLERK/SA Time In 03/04/24 08:23:00 03/04/24 08:23:00 03/04/24 08:23:00 Time Out 03/04/24 09:38:00 03/04/24 09:21:00 03/04/24 09:38:00 Procedure HIP TOTAL HIP TOTAL HIP TOTAL ARTHROPLASTY(Right) ARTHROPLASTY(Right) ARTHROPLASTY(Right) Comments DR. HUMPHRIES SECRETARY SPECIALIST ASSIST Last Modified By: Abhay Schultz Ii, Alfons Ii F Letrondo, Alfons Ii F 03/04/24 09:42:04 03/04/24 09:42:04 03/04/24 09:42:04 Entry 4 Entry 5 Entry 6 Case Attendee Dennis Romano CST, Adam A Letrondo, Alfons Ii F Role Performed Scrub - Primary Staff - Other Paper Gluing Operator - Primary Time In 03/04/24 08:23:00 03/04/24 08:23:00 03/04/24 08:23:00 Time Out 03/04/24 09:38:00 03/04/24 09:38:00 03/04/24 09:38:00 Procedure HIP TOTAL HIP TOTAL HIP TOTAL ARTHROPLASTY(Right) ARTHROPLASTY(Right) ARTHROPLASTY(Right) Comments 2ND SCRUB Last Modified By: Abhay Schultz Ii, Alfons Ii F Letrondo, Alfons Ii F 03/04/24 09:42:04 03/04/24 09:42:04 03/04/24 09:42:04 Entry 7 Case Attendee Fabio Valadez CST Role Performed Staff - Other Time In 03/04/24 08:23:00 Time Out 03/04/24 09:21:00 Procedure HIP TOTAL ARTHROPLASTY(Right) Comments 3RD SCRUB Last Modified By: Abhay Schultz Ii 03/04/24 09:42:04 General Comments: EMERY LOVELL FROM [employer] IS IN ATTENDANCE. /EMILY HENLEYend worker Protocols FT Pre-Care Text: Implements protective measures [...] Time Out Theo RIVERO, MUNDO, [place] Participants N., Caroline Pelletier DO, Jolene SPECIAL DISTRIBUTION CLERK, Chelo Colin, Rosalina DIAZ, Simon Collins Adam [...] ARTHROPLASTY Primary Procedure Yes Primary Surgeon Caroline Pelletier DO Start 03/04/24 08:46:00 Stop 03/04/24 09:33:00 [...] Text: Imple (more content not included)... Normal [facility] ABO/Rhon 03-04-2024 ABO/Rh Positive Invalid Interpretation Code [facility] Comment on above: Performed By: #### [id number] #### [facility] [address] [place] [address] ABO/Rh History Checkon 03-04 ABO/Rh History Check Verified Hx Blood Type Normal [facility] Comment on above: Performed By: #### 1 [id number] #### [facility] [address] [place] [address] ABSCon 03-04-2024 ABSC Gel Interp Negative Normal [facility] Comment on above: Performed By: #### 1 [id number] #### [facility] [address] [place] [address] BLOOD BANKOrdered By: Rain Foster on 03-04-2024 ABO/Rh Interp Positive Invalid Interpretation Code [facility] [place] [place] BB Subsection ABSC Gel Interp Negative (03/04/24 7:11 AM) Normal [facility] [place] [place] BB Subsection Blood Bank ID#on 03-04-2024 BBID# [id number] Invalid Interpretation Code [facility] Comment on above: Performed By: #### 1 [id number] #### [facility] [address] [place] [address] Discharge Instructionson Discharge Instructions Discharge Instructions TERESA SMALL Marilynn :1940 Visit Date:03/04/2024 Inpatient Discharge Instructions Your Care Team Admitting Physician - Caroline Pelletier DO Referring Physician - Caroline Pelletier DO Reason for Your Visit RIGHT HIP [...] AM EDT Comments: Keep scheduled appointment Where: [address] [place] [address]- Social Strategy 1 (1) Medications What How Much When Why Instructions Next Dose Unchanged acetaminophen-oxycod one (Percocet 5 mg-325 mg oral tablet) See instructions Osteoarthritis of right hip 1 tab(s) Oral po q 4 prn hip surgical pain Pickup at [facility] Unchanged amlodipine (amLODIPine 2.5 mg Tab) 1 Tablets By Mouth Every day Unchanged aspirin (aspirin 325 mg Tab) 1 Tablets By Mouth Every day Duration: 30 Days Start the day after hip surgery Pickup at [facility] Unchanged cephalexin (Keflex 500 mg Cap) 1 Capsules By Mouth 4 times a day Duration: 5 Days Start the day after hip surgery Pickup at [facility] Unchanged docusate (Colace 100 mg Cap) 1 Capsules By Mouth 2 times a day Pickup at [facility] Pharmacy Information [facility]: [address] [place], [place] [id number] [phone] Allergies cortisone (Light headed, Fatigue, High blood [...] the sp (more content not included)... Normal [facility] Comment on above: Result Comment: Elec tronically Signed By: Ventura DIAZ, Cat Puentes\.br\Date and Time Signed: 03/04/24 10:34 EDT Main OR PACU I Recordon 02-12 Main OR PACU I Record Main OR PACU I Record PACU Phase I Document Type FT Summary Primary Physician: Caroline Pelletier DO Finalized Date/Time: 03/04/24 10:41:30 Pt. Name: TERESA SMALL Marilynn Richardson/Sex: 1940 Female Med Rec #: [id number] Physician: Caroline Pelletier DO Financial #: [id number] Pt. Type: A Room/Bed: 12/12 Admit/Disch: 03/04/24 [...] I Outcomes Met? Yes Last Modified By: Connor DIAZ, Sneha Bobby 03/04/24 10:41:18 Post-Care Text: The patient demonstrates [...] By: Sneha Ryan RN 03/04/24 10:41 Normal [facility] Main OR PACU II Recordon Main OR PACU II Record Main OR PACU II Record PACU Phase II Document Type FT Summary Primary Physician: Caroline Pelletier DO Finalized Date/Time: 03/04/24 15:25:34 Pt. Name: TERESA SMALL/Sex: 1940 Female Med Rec #: [id number] Physician: Caroline Pelletier DO Financial #: [id number] Pt. Type: A Room/Bed: [place] [address] Admit/Disch: 03/04/24 05:56:12 - Institution: Case Times [...] By: Cat Whitehead RN 03/04/24 15:25 Normal [facility] Main OR Preoperative Recordo n 03-04-2024 Main OR Preoperative Record Main OR Preoperative Record PreOp Document Type FT Summary Primary Physician: Caroline Pelletier DO Finalized Date/Time: 03/04/24 08:48:19 Pt. Name: TERESA SMALL/Sex: 1940 Female Med Rec #: [id number] Physician: Caroline Pelletier DO Financial #: [id number] Pt. Type: A Room/Bed: [place] [address] Admit/Disch: 03/04/24 05:56:12 - Institution: Case Times [...] By: Abhay Schultz Ii 03/04/24 08:48 Normal [facility] XR Hip 1 View Right + [...] dislocation. No periimplant fracture. Ordering Provider: Caroline Pelletier FINAL REPORT Dictated: 03/04/2024 3:25 pm Kiran Baron Signed (Electronic Signature): 03/04/2024 3:25 pm Signed by: Kiran Baron Transcribed by: FRENCH Technologist: JUDI Technical Comments Radiation Dose: Ka,r in mGy = . DAP = . Normal [facility] Inpatient Patient Summaryon 02-29-2024 Inpatient Patient Summary Inpatient Patient Summary [address] [address] [facility] Clinical Discharge Instructions PERSON INFORMATION Name: TERESA SMALL PHYSICIANS Admitting Physician: Caroline Pelletier DO Attending Physician: Caroline Pelletier DO PCP: DEJON ZHOU MD Discharge Diagnosis: Osteoarthritis of right hip Comment: PATIENT EDUCATION INFORMATION Instructions: Pelletier - Hip Replacement Arthroplasty (CUSTOM) Medication Leaflets: Follow up: With: Address: When: Caroline Pelletier [address] [place] [address] [facility] () Comments: Keep scheduled appointment Type Location Start [facility] Surgery [facility] Surgical Services 03/04/2024 8:45 AM 03/04/2024 9:45 AM Confirmed MEDICATION LIST Medications to Continue with No Changes Other Medications acetaminophen (acetaminophen 325 mg Tab) 2 Tablets By Mouth every 4 hours as needed Pain/Fever. amlodipine (amLODIPine 2.5 mg Tab) 1 Tablets By Mouth every day. Comment: Normal [facility] Outpatient Surgery Discharge Instructionon 02-29-2024 Outpatient Surgery Discharge Instruction Outpatient Surgery Discharge Instruction [address] [address] Patient Discharge Instructions PERSON INFORMATION Name: TERESA SMALL Date of : 1940 Current Date: 02/29/2024 17:27:09 PHYSICIANS Admitting Physician: Caroline Pelletier DO Discharge Diagnosis: Osteoarthritis of right hip [...] Date Follow up: With: Address: When: Caroline Pelletier [address] [place] [address] Social Strategy 1 (1) Comments: Keep scheduled appointment Type Location Start [facility] Surgery [facility] Surgical Services 03/04/2024 8:45 AM 03/04/2024 9:45 [...] to serve you. Thank you for choosing [facility] HERE ARE THE MEDICATION CHANGES THAT OCCURRED DURING YOUR HOSPITAL STAY Medications to Continue with No Changes Other Medications acetaminophen (acetaminophen 325 mg Tab) 2 Tablets By Mouth every 4 hours as needed Pain/Fever. amlodipine (amLODIPine 2.5 mg Tab) 1 Tablets By Mouth every day. PATIENT EDUCATION INFORMATION Instructions: [place] [place] [facility] DISCHARGE INSTRUCTIONS HIP REPLACEMENT [...] of pr (more content not included)... Normal [facility] Coding Summary.on 02-07-2024 Coding Summary. BOLEHsxp11DSv6jRw+PG hlYWQ+XV5WABRyG53opG GkuC0hK0UPXEuGHwprAT NEAOyJFyEplkZdUB2knY NjZXJu IC8+XU5cRRDyRmqpkRCf a3E6xDH4V19vwn5uVAhg dCA1DSFeQyNuzahpn1tm zQu4AZvxKpbmZrBe DASctL87YYD0cF88Xs50 bDFtkSGay0fjjMd3BoYl MODuFBT3bPxlFBhes6Fw ADXnG07qlMVyp7F9 IGNvbGxhcHNlOyBlbXB0 jB7sBGgrggbas5kaycvl Kcm6lz22cJSpy0J8xQV8 Y8BpbgL5HWLmxVAb GwyqnNPSrX0clqubq5ly cqqpEzKjYGJbKYb6BXt9 CFGmdSycIaGtQX13AVE9 KNJhccVxB4PaFJRv mZjrQpM8a9W2Ps4EH2IY UpdlE1PZALWQUZrknVA+ DL55oa97X1PeXbvjSmk5 WIKbLIJ8wSS2cV2v OISlUHdeg5L7tIJ5G7Kz ziLyjm0xq0kfGEZdJExm W60vrVNwq7N3LBAbqUT5 KJQmcKjlSsVhzW94 Oyc+FRCorCmfi4RnSrqu o6ejn7rweMq5GhviEAXp zcKzbSmyDTJ1a9SiAk8t QTUygPS5eMY3kG5t DoZwRyQ3CWyvO546YwGs tYGtKajaJ87uD5SzoOH+ ZESeEvl1UJVueJkoXH8b H4CwMZQsoxsnaWPq gErpCH5gMRActnwkEVCh xF8mLFRkC5v6UdVxOiC1 PQirH4SuAVEmrvyyAd89 sZ0oYqXfPpN4KQhr A2BpfkF3ERTdkTFqZQmz FEO7L50vl3N1STIbTRIv TXF0yLM1iY8pcFrmwnyv bGVmdDsgdmVydGlj ADmfENkfK035OJKayUmw PkNvZGluZyBEYXRlOiAg MDYvMjYvMjAyNDwvdGQ+ VIJkDAE4iYbqVYOd jCAuKKjwKp9ztTlraTgr MJ5aGVAqbjijAJXqhI3a BQQmrNCxzNxeKT1jSAAr kwqaq571WzLwIBQ5 EJSasPZiO2SdvP2gHgBd ITAuDFKiO1IlyLBlGOet B975XXueFsO9PIPsjiZo R2CkNNXmrJleVkS9 h7S2Uh7Jf1TekhwsQ6Qz gOBsEqOsLudzHSo2W1Eb PjwvdHI+LS98SOQmNV94 KNl7RRH2cWgiBZbw DVJqB9ElhI4vUyKaJABe ZGRkOyc+PHRhYmxlIHdp ZHRoPScxMDAlJyBzdHls XM1sAy8cGXGrWMAl bYsbxKRuDkQpk3grVVXx CChqGS9mfSpcH8WjbON6 POXfr0h9Va41F88fG0Fa dXA+LWPhkLV9sIP4 wF3xJgLwVpZ6AJaeR952 RkDbvYOsQrxri5flf0ks xBk9RfG9IYWpttCmpOup JXK7a4OmWf56D31o IHdpZHRoPSIxNSUiIHZh lYaioi9uuP9kAy3+PGNv bCE5wNJ5tP2nZgJgVmY8 LNewV787DcLsePFw Gwkoo4bmw2cliGt4OwVu OCGjdeMlxHsfZUR0q5Xt Jy11L7ErzNqny5EuTxj6 et57yRBgk5J2jQA3 Z3ZaDMZxruezyIRvxOij ST0yLXXpcjcnUBDwrI0n JBIuY3y4GkCrZvK2BLuj E5QkopS8DNEgcNEq QVDiaCTNtU1smlxag4qm odrnNkFfMXUkBUy8QDp9 NXUmbIyjNaLvJSR9ZqS1 SZO1aWYhyX4nxElc owtrxR8aUdp+EXR8lRIt lQKUMQ5cLgdvzFL+PHRk QEU1mDmvYWxjLVUppC7s LTGdO4q5VfLrZpJ7 GCmhI9VvmqT0LOMntLXg NAEtkGRVfU2ieffsc1ib lwmrWeAsDCNoFZd8CPa7 LWFsaWduOiBsZWZ0 JcP7LPK2hWSdzM3sbDsg lkvnbY6pUrq+QmlydGgg JDL7QYl7O4ZfJqo3PWPq aWjcUW5uyZRoWQmx Pz1ydQmbwGcfZI2wMIZa kuwvu007WfBdy5kbUANw hBXsICcnYLZ0O40nm3W1 BRIeAUQsICV4tKY9 yN8mzDfuqzoaaJQgmWpy mpOnhZagTVieRNwfW052 YGImzBrhPvQrBYv8V6Qh Cow6EPZpbSiqIQ0k vCGyVKdsVy2qoDlqsRfi JT9fOROepbyan463CrYh f5qzJHVczXIqAWncFGH3 G70qz3C3WSGsVVDs XUC8fFY4zM3roCfvtydq bGVmdDsgdmVydGljYWwt SQojA284VMQjiEdgWfQb mYj1D5RwJzz0QUIz tHouJM9fkUKnHIqyAw3r cAgoxEvbYI8uHEXxjnpm i903OvGos0plIXZxfAPr HIzfESZ0O54sf8L9 ZEJnOZKmFQI7pET3cF2m bGlnbjogbGVmdDsgdmVy lDsjKIoiDCcwG460RMCr cDsnPlBhdGllbnQg DIoyEPn8M9OzDskznBW+ YI75OECvJI52lTJopZKk v2zcgQj0NcLkBXPdPYV1 lTenFNhcx2NtWGVy M39ysXIda7V3NZIbgYur jPQqYkNhiBB3dL7pNQly itisy5anhpqtDfjrv2ub fr80aV27A01dNTyw ZHRoPSIzMCUiIHZhbGln tg1ycK0pPl5+PGNvbCB3 yQL8tJ8nZBSoLcJ2LBtp U347QoAyrKBiMvtn t2mgf2xeiEz4GiP3FPWt ikEytHrzJCZ9u5IkPv64 Y68lBCdvUZXqSVXnYEVz CLMfhYjgxp8faH8r Ii8+MHBpwZU0iAL9bA8b LrVnVhS7KZxaR032DcTz gRZtJeshM37uG4WwgIL+ SSOiMyq1NLFjbTvs CB0naTQrOLvfYe1fCAA1 PzCtLvSeDPiqF2EnYESx iidxpzotfVA9IECaGJWl oK46Pu7joKgxEWRp iILPrB1hivdqh1smvyqz KdAfXYFaESi0SIt9OGOg rIdaRuRgXQX8YpE1UUB0 hEEdfH4hrOmzflah nK6zR1ZqOXRywqmkRx35 aK4tNzAqGrU9ERgwQlm+ BW9UFqYtKTXOJe5PVAAM QI59LF95pNUhz4O6 hMG4Y6YkTNHdjuonhaji tNX8UAZzMCUrlF92gZUf AVyfQk8lq0P5w583NLLj IPYilH44Ft9mjZlh NENsiRBLgZ7ygfedm5kr ctbfBeGpLXQkEWf2ZAp0 MSJnySmzPjOoFOL7TdI8 LQN0yUAuuJ8ciYeg nsqslN4yEgw+MDgvMTUv MTkzODwvdGQ+PHRkIHN0 tGqsGVayKFGnrF8dAMCt R5y1RjUjVrC7WQfx M7OrPUIdnfeeZe25aW0w WkWbOaL8YTmkT5BnemM1 FEPucTZhGKlkKNP8X50s b2Q7FLVhECSqLZZ8 kUF8iS9udNsngwzouQOp dDsgdmVydGljYWwtYWxp S366CVOhqFzoHmf9CQmu XAHrEG73TM07jGDd c0G6gBH8M0AkXBKrhyhb ephayYN5HSPiSXBojB73 tFXlJHwlYk5ng8T0n229 IIJnEXIxjG77Jk0e fYpsLDIgfZDKqI8wwhhi p1iujgfeFnFoBPFvCLl8 QZd5IXUukEhqFlNjNIO0 WsV7RZI7qPJytJ2p yBfqkvxfoD5xPkx+RmVt KMeiWH21TI03rEOkz8Y0 hCX6H7UzZNKoxsriqgzl aEV2IFEgDAApnP94 hWFwWGmiLc7pz8L2x763 VDHaNVLeyN30Gb5wzKum EMEysLIFyA4oliftd3xu cjogIzAwMDAwMDt0 FGa3ECUuyUpmVeNpREM4 PyI2ELT0fSCrdL1rjCdf eqwujC8yKsj+X6Y5jZX0 aWVudDwvdGQ+PC90 fz27O2UjCtezIic1FYIa LPS8pUI9pN3dVRTgESdm i6K7aFF9B6DesuHcoz1i k8myXLAqKQvoE13r wZVxr0O5ONOeuSZ3IRIs lYiqHiJwgM37Pja+PGNv rCdpq2XzCdfvl3ech5ew rJv7TlPoNRSabgHt pIebOVW4j6StEz99D64x IHdpZHRoPSIzMCUiIHZh uZxpoh4euA1nVx5+PGNv dFZ8yKW4zW2tGmBc YhZ7JTcfM456EcNqmRVi Eapwo8daz4nglGy2BuYa IRDptmWncGlzXWH3v9Pd Pr49L0GtaVxak4Ck Uph1mv15pMZbt2S4gWG4 W4TaJUYdyzdcgDFqvXwh CG7kHCKhdmtzFSOmxW8p XNFqE9e3IzBeYqT5 ZCtzW7ZpwlY4JLZwsFWp LYKzsTTQbZ8vblqjs1km vljiViDpEYTsQQh8QCo2 LWFsaWduOiBsZWZ0 FzN0LJK4iIQfgR2qoKgt jldsgQ8yOrd+GCy5c7tk nJRxPC9zrRR1ZD29PW64 jEWzc5T3oAA4K7Bu ARBzfbaxdavnfPB6NVUo BKRykG22Ip7xfBscAt9q VVLuPFQ0EKBndMRnO5Dp pJ2vTnTqUCMcQCLg U7TqfAVmEIidX909JWyt VvS6XJDtfcPhH9YbQFTk iKpyVmW9b1Y8Dy7NWX81 RD83DT93aKLgp0F9 jPC6L0RyYEMbaihjumyy qRC6DDVeDRXeoP31Zm7b iLzjYf2bVHDgCNR6MNRh oPUgX9KohI1nSoQi APRvGCLqQ1TqmHCxLHqn J597WQmcUmT7PABkaaQn G0RaSDJwuYekYqE0s1T3 Fy3BUn55MV21RR83 uNFhh5Z9bJM0S5SdXVUl jjumyxqyzVB4VYPcZMVi rB55Hk8txZvjAu1pUNUz ZKP0YXFtnDPbL3Jw rP3aNjYjTDWjBFBrS0Un cMFwXDniO677AClvPjH0 BKRgibCvC2LxXWCdiPas DaQ0r2C4Hy0WLQax eck2I0GrWnpglCO+PC90 ZEFzJM45pQDhrOMgu9vq bUy8FsPaWLGcUME2kPaa RQojk9NpUELqI71k yFWwa2W8VNAvp (more content not included)... Normal [facility] XR Chest 2 Viewson XR Chest [...] mGy = . DAP = . Normal [facility] Consent for Treatmenton 01-12 Consent for Treatment [id number] 40 [id number] #1.00TIFF Normal [facility] UA with Cult Rflxon 01-30-20 24 Bilirubin Ql (U) Negative Normal Negative [place] Comment on above: Performed By: #### 4 [id number] #### [facility] [address] [place] [address] Clarity (U) Clear Normal Clear [facility] Comment on above: Performed By: #### 4 [id number] #### [facility] [address] [place] [address] Color (U) Light-Yellow Normal Yellow [facility] Comment on above: Result Comment: Micr oscopic readings are only performed on those samples that meet specific criteria set forth by [facility]. Performed By: #### 4 [id number] #### [facility] [address] [place] [address] Glucose Ql (U) Negative Normal Negative [facility] Comment on above: Performed By: #### 4 [id number] #### [facility] [address] [place] [address] Hemoglobin Auto test strip (U) [Mass/Vol] 1+ mg/dL Abnormal Negative [facility] Comment on above: Performed By: #### 4 [id number] #### [facility] [address] [place] [address] Ketones Auto test strip Ql (U) Negative Normal Negative [facility] Comment on above: Performed By: #### 4 [id number] #### [facility] [address] [place] [address] Leukocyte esterase Auto test strip Ql (U) Negative Normal Negative [facility] Comment on above: Performed By: #### 4 [id number] #### [facility] [address] [place] [address] Mucus Auto Ql (U) Negative Normal Negative [facility] Comment on above: Performed By: #### 4 [id number] #### [facility] [address] [place] [address] Nitrite Auto test strip Ql (U) Negative Normal Negative [facility] Comment on above: Performed By: #### 4 [id number] #### [facility] [address] [place] [address] pH (U) 7.0 [pH] Invalid Interpretation Code 5.0-9.0 [facility] Comment on above: Performed By: #### 4 [id number] #### [facility] [address] [place] [address] Protein Ql (U) Negative Normal Negative [facility] Comment on above: Performed By: #### 4 [id number] #### [facility] [address] [place] [address] RBC Ql (U) 4-20 Abnormal 0-3 [facility] Comment on above: Performed By: #### 4 [id number] #### [facility] [address] [place] [address] Specific gravity (U) [Rel density] 1.012 Invalid Interpretation Code 1.005-1.030 [facility] Comment on above: Performed By: #### 4 [id number] #### [facility] [address] [place] [address] Urobilinogen (U) [Mass/Vol] Negative Normal Negative [facility] Comment on above: Performed By: #### 4 [id number] #### [facility] [address] [place] [address] Type of Urine collection method Clean Catch Normal [facility] Comment on above: Performed By: #### 4 [id number] #### [facility] [address] [place] [address] URINALYSISOrdered By: SYSTEM SYSTEM on 01-30-2024 Bilirubin Ql (U) Negative Normal Negativemg/ d L [facility] [place] [place] UA Auto SS Clarity (U) Clear (01/30/24 10:10 AM) Normal Clear [facility] [place] [place] UA Auto SS Color (U) Light-Yellow 1 (01/30/24 10:10 AM) Normal Yellow [facility] [place] [place] UA Auto SS Comment on above: Interpretive Data: M icroscopic readings are only performed on those samples that meet specific criteria set forth by [facility]. Glucose Ql (U) Negative Normal Negativemg/d L [facility] [place] [place] UA Auto SS Hemoglobin Auto test strip (U) [Mass/Vol] 1+ mg/dL Invalid Interpretation Code Negativemg/d L [facility] [place] [place] UA Auto SS Ketones Auto test strip Ql (U) Negative Normal Negativemg/d L [facility] UA Auto SS Leukocyte esterase Auto test strip Ql (U) Negative Normal NegativeLeu/ uL [facility] UA Auto SS Mucus Auto Ql (U) Negative Normal Negativegr ad ed/LPF [facility] UA Auto SS Nitrite Auto test strip Ql (U) Negative Normal Negativemg/d L [facility] UA Auto SS pH (U) 7.0 *NA* (01/30/24 10:10 AM) Invalid Interpretation Code 5.0 - 9.0 [facility] UA Auto SS Protein Ql (U) Negative Normal Negativemg/d L [facility] UA Auto SS RBC Ql (U) 4-20 graded/HPF Invalid Interpretation Code 0-3graded/HP F [facility] UA Auto SS Specific gravity (U) [Rel density] 1.012 *NA* (01/30/24 10:10 AM) Invalid Interpretation Code 1.005 - 1.030 [facility] UA Auto SS Urobilinogen (U) [Mass/Vol] Negative Normal Negativemg/d L [facility] [place] [place] UA Auto SS URINALYSISOrdered By: Brenda Kowalski on 01-30-2024 UA Spec Desc Clean Catch (01/30/24 10:10 AM) Normal [facility] [place] [place] UA Auto SS IntraOperative Documentson 0 01-05-2024 IntraOperative Documents [id number] 24#1.00TIFF Normal [facility] IntraOperative Documentson 0 01-02-2024 IntraOperative Documents [id number] 0#1.00TIFF Normal [facility] Main OR Intraoperative Recor don 01-02-2024 Main OR Intraoperative Record IntraOp Document Type FT Summary Primary Physician: Caroline Pelletier DO Finalized Date/Time: 01/02/24 11:54:04 Pt. Name: TERESA SMALL/Sex: 1940 Female Med Rec #: [id number] Physician: Caroline Pelletier DO Financial #: [id number] Pt. Type: O Room/Bed: Admit/Disch: 01/01/24 13:21:16 [...] Entry 2 Entry 3 Case Attendee Caroline Pelletier DO, RN, Tray Christian Role Performed Surgeon - Primary Paper Gluing Operator - Primary Scrub - Primary Time In 01/01/24 14:25:00 01/01/24 14:25:00 01/01/24 14:25:00 Time Out 01/01/24 14:38:00 01/01/24 14:38:00 01/01/24 14:38:00 Procedure HIP ARTHROGRAM(Right) HIP ARTHROGRAM(Right) HIP ARTHROGRAM(Right) Comments Last Modified By: Jen DIAZ, Honey Li RN, Honey Li RN, Honey Bello 01/01/24 Hayley Bello 01/01/24 Hayley Bello 01/01/24 14:52:45 14:52:45 14:52:45 Entry 4 Case Attendee Lavon POTTER(R)Valerie R Role Performed Breaker Machine Operator Time In 01/01/24 14:25:00 Time Out 01/01/24 [...] Applicable) PreOp Antibiotic No Time Out Caroline Pelletier DO, Given Participants Jen DIAZ, Simon Bello Adam A, Barnes RT(R), Vlaerie R Time Out Complete 01/01/24 14:30:00 Outcomes Met? [...] ARTHROGRAM Primary Procedure Yes Primary Surgeon Caroline Pelletier DO Start 01/01/24 14:31:00 Stop 01/01/24 14:35:00 [...] and tissue Entry 1 Skin Integrity Intact, Crook, Warm, and Skin Abnormality No Dry Outcomes [...] Under Head Large, (more content not included)... Normal [facility] Operative Reporton Operative Report SURGERY DATE: 01/01/2024 [...] was achieved with the large C-arm with energy technician. The anterior hip and thigh were [...] SPECIMEN: None CONDITION: The patient's condition satisfactory Caroline Pelletier D.O. ca Dictated: 01/01/2024 [id number] Transcribed: 01/02/2024 cc:Dejon Zhou M.D. [facility] Comment on above: Result Comment: Elec tronically Signed By: Caroline Pelletier DO\.br\Date and Time Signed: 01/02/24 07:09 EDT Preoperative Documentson Preoperative Documents [id number] 1#1.00TIFF [facility] Consent for Treatmenton 12-13 Consent for Treatment [id number] #1.00TIFF [facility] Discharge Instructionson Discharge Instructions TERESA SMALL :1940 Visit Date:01/01/2024 Inpatient Discharge Instructions Your Care Team Admitting Physician - Caroline Pelletier DO Referring Physician - Caroline Pelletier DO Reason for Your Visit RIGHT HIP [...] Appointments after Discharge Follow Up with Caroline Pelletier When: Comments: Keep scheduled appointment Where: [address] [place], [place] [id number] [facility] (1) Medications What How Much When Instructions [...] signed up for this yet, please contact [employer] at [phone] to get signed up today. Patient Name: TERESA SMALL I have received this information and my questions have been answered. Patient/Representati ve Name: Patient/Representati ve Signature: Relationship to Patient: Witness Name/Signature: Date: Normal [facility] Comment on above: Result Comment: Elec tronically Signed By: Terry DIAZ, Antonieta Jamil\.br\Date and Time Signed: 01/01/24 14:47 EDT H&P Updateon 01-01-2024 H&P Update [id number] 7#1.00TIFF [facility] Main OR Preoperative Recordo n 01-01-2024 Main OR Preoperative Record PreOp Document Type FT Summary Primary Physician: Caroline Pelletier DO Finalized Date/Time: 01/01/24 15:33:43 Pt. Name: TERESA SMALL/Sex: 1940 Female Med Rec #: [id number] Physician: Caroline Pelletier DO Financial #: [id number] Pt. Type: O Room/Bed: [facility] Admit/Disch: 01/01/24 13:21:16 - 01/01/24 15:15:00 Institution: [...] By: Antonieta Stewart RN 01/01/24 15:33 Normal [facility] Main OR Preoperative Record Holding Area Document Type FT Summary Primary Physician: Caroline Pelletier DO Finalized Date/Time: 01/01/24 14:13:47 Pt. Name: SMALLTERESA/Sex: 1940 Female Med Rec #: [id number] Physician: Caroline Pelletier DO Financial #: [id number] Pt. Type: O Room/Bed: [place] [address] Admit/Disch: 01/01/24 13:21:16 - Institution: Case Times Holding FT Pre-Care Text: Verifies consent for planned procedure, identifies individual values and wishes concerning care, includes family members in perioperative teaching Secures patient's records' belongings, and valuables, maintains patient's dignity and privacy, and maintains patient confidentiality Entry 1 In Holding 01/01/24 13:40:00 Outcomes Met? Yes Last Modified By: Nabor DIAZ, BENSON, Jackie Glass 01/01/24 13:46:36 Post-Care Text: The patient participates [...] Operative Site Yes Marking: Marked By: avinash pelletier Location: right hip Does Patient Smoke No Patient states No Comment - Adult per self postop adult Supervision supervision available Case Cancelled in No Holding Area see comments below for reason Last Modified By: BENSON Tomlin RN, Amber R 01/01/24 13:48:29 General Comments: pt is a local Finalized By: BENSON Tomlin RN, Amber R Document Signatures Signed By: BENSON Tomlin RN, Amber R 01/01/24 14:13 Normal [facility] Consent for Procedure/Surger yon 12-28-2023 Consent for Procedure/Surgery [id number] 1.00TIFF Normal [facility] Inpatient Patient Summaryon 12-28-2023 Inpatient Patient Summary [address] [address] [facility] Clinical Discharge Instructions PERSON INFORMATION Name: TERESA SMALL PHYSICIANS Admitting Physician: Caroline Pelletier DO Attending Physician: Caroline Pelletier DO PCP: DEJON ZHOU MD Discharge Diagnosis: Localized osteoarthrosis of right hip Comment: PATIENT EDUCATION INFORMATION Instructions: Medication Leaflets: Follow up: With: Address: When: Caroline Liyah [address] [place] [id number] [facility] (1) Comments: Keep scheduled appointment Type Location Start [facility] Surgery [facility] Surgical Services 01/01/2024 2:30 PM 01/01/2024 2:45 [...] Capsules By Mouth every day. Comment: Normal [facility] Outpatient Surgery Discharge Instructionon 12-28-2023 Outpatient Surgery Discharge Instruction [address] [place], [place] [address] Patient Discharge Instructions PERSON INFORMATION Name: TERESA SMALL Date of : 1940 Current Date: 12/28/2023 11:54:32 PHYSICIANS Admitting Physician: Caroline Pelletier DO Discharge Diagnosis: Localized osteoarthrosis of right [...] Date Follow up: With: Address: When: Caroline Pelletier [address] [place] [address] Business (1) Comments: Keep scheduled appointment Type Location Start [facility] FT [facility] 01/01/2024 2:30 PM 01/01/2024 2:45 [...] to serve you. Thank you for choosing [facility] HERE ARE THE MEDICATION CHANGES THAT OCCURRED [...] PATIENT EDUCATION INFORMATION Instructions: Medication Leaflets: Normal [facility] Patient Education - Texton 0 12-28-2023 Patient Education - Text [facility] CT ABD/PELVIS WO CONon 12-15 CT [...] by: ANGEL GARCIA Date: 2022-12-15 13:56 Normal [facility] US LUIS DANIEL DOP LEG LTon 12-03-19 [...] by: LARS PAGE Date: 2022-12-02 16:33 Normal [facility] COVID Quick Testingon 2020 Result Negative [place] [place] Other Vital Signs Date Time Vital Sign Value Performing Clinician Facility 03-04-2024 15:00-0400 Diastolic blood pressure 72 mm[Hg] Caroline Pelletier [facility] 03-04-2024 15:00-0400 Heart rate 89 /min Caroline Pelletier [facility] 03-04-2024 15:00-0400 SaO2% (BldA) [Mass fraction] 97 % Caroline Liyah [facility] 03-04-2024 15:00-0400 Systolic blood pressure 150 mm[Hg] Caroline Pelletier [facility] 03-04-2024 13:27-0400 Heart rate 81 /min Caroline Pelletier [facility] 03-04-2024 13:27-0400 SaO2% (BldA) [Mass fraction] 98 % Caroline Pelletier [facility] 03-04-2024 13:27-0400 Diastolic blood pressure 68 mm[Hg] Caroline Pelletier [facility] 03-04-2024 13:27-0400 Mean blood pressure 95 mm[Hg] Caroline Pelletier [facility] 03-04-2024 13:27-0400 Systolic blood pressure 149 mm[Hg] Caroline Liyah [facility] 03-04-2024 13:27-0400 Respiratory rate 18 /min Caroline Pelletier [facility] 03-04-2024 10:16-0400 Heart rate 69 /min Caroline Liyah [facility] 03-04-2024 10:16-0400 SaO2% (BldA) [Mass fraction] 98 % Caroline Pelletier [facility] 03-04-2024 10:16-0400 Respiratory rate 16 /min Caroline Pelletier [facility] 03-04-2024 10:13-0400 Diastolic blood pressure 83 mm[Hg] Caroline Pelletier [facility] 03-04-2024 10:13-0400 Mean blood pressure 97 mm[Hg] Caroline Pelletier [facility] 03-04-2024 10:13-0400 Systolic blood pressure 127 mm[Hg] Caroline Liyah [facility] 03-04-2024 10:05-0400 Body temperature 96.98 [degF] Caroline Pelletier [facility] 03-04-2024 10:05-0400 Mean blood pressure 95 mm[Hg] Caroline Pelletier [facility] 03-04-2024 10:05-0400 Respiratory rate 17 /min Caroline Pelletier [facility] 03-04-2024 09:55-0400 Mean blood pressure 74 mm[Hg] Caroline Pelletier [facility] 03-04-2024 09:55-0400 Respiratory rate 17 /min Caroline Pelletier [facility] 03-04-2024 09:50-0400 Mean blood pressure 78 mm[Hg] Caroline Pelletier [facility] 03-04-2024 09:40-0400 Body temperature 96.98 [degF] Caroline Pelletier [facility] 03-04-2024 06:23-0400 Blood Pressure Location Caroline Liyah [facility] 03-04-2024 06:23-0400 Mean blood pressure 89 mm[Hg] Caroline Pelletier [facility] 03-04-2024 06:23-0400 Heart rate 80 /min Caroline Pelletier [facility] 03-04-2024 06:21-0400 Body temperature 97.34 [degF] Caroline Pelletier [facility] 03-04-2024 06:21-0400 Blood Pressure Location Caroline Pelletier [facility] 01-30-2024 10:08-0400 Heart rate 60 /min Caroline Pelletier [facility] 01-30-2024 10:08-0400 SaO2% (BldA) [Mass fraction] 98 % Caroline Liyah [facility] 01-30-2024 10:07-0400 Body temperature 97.7 [degF] Caroline Liyah [facility] 01-30-2024 10:07-0400 Blood Pressure Location Caroline Liyah [facility] 01-30-2024 10:07-0400 Diastolic blood pressure 75 mm[Hg] Caroline Liyah [facility] 01-30-2024 10:07-0400 Mean blood pressure 105 mm[Hg] Caroline Liyah [facility] 01-30-2024 10:07-0400 Systolic blood pressure 164 mm[Hg] Caroline Liyah [facility] 01-30-2024 10:07-0400 Respiratory rate 16 /min Caroline Liyah [facility] 01-01-2024 15:00-0400 Heart rate 60 /min Caroline Liyah [facility] 01-01-2024 15:00-0400 SaO2% (BldA) [Mass fraction] 99 % Caroline Liyah [facility] 01-01-2024 14:57-0400 Diastolic blood pressure 77 mm[Hg] Caroline Liyah [facility] 01-01-2024 14:57-0400 Mean blood pressure 112 mm[Hg] Caroline Pelletier [facility] 01-01-2024 14:57-0400 Systolic blood pressure 183 mm[Hg] Caroline Liyah [facility] 01-01-2024 14:57-0400 Body temperature 98.06 [degF] Caroline Pelletier [facility] 01-01-2024 14:35-0400 Diastolic blood pressure 96 mm[Hg] Caroline Pelletier [facility] 01-01-2024 14:35-0400 Heart rate 63 /min Caroline Pelletier [facility] 01-01-2024 14:35-0400 SaO2% (BldA) [Mass fraction] 97 % Caroline Pelletier [facility] 01-01-2024 14:35-0400 Systolic blood pressure 198 mm[Hg] Caroline Pelletier [facility] 01-01-2024 14:25-0400 Diastolic blood pressure 96 mm[Hg] Caroline Pelletier [facility] 01-01-2024 14:25-0400 Heart rate 69 /min Caroline Pelletier [facility] 01-01-2024 14:25-0400 SaO2% (BldA) [Mass fraction] 98 % Caroline Pelletier [facility] 01-01-2024 14:25-0400 Systolic blood pressure 190 mm[Hg] Caroline Pelletier [facility] 01-01-2024 13:42-0400 Mean blood pressure 113 mm[Hg] Caroline Liyah [facility] 01-01-2024 13:42-0400 Respiratory rate 18 /min Caroline Liyah [facility] 01-01-2024 13:42-0400 Body temperature 97.88 [degF] Caroline Liyah [facility] 06-02-2021 12:00-0400 Body height 157.48 cm Rylee Henning Other [facility] [place] Other 06-02-2021 12:00-0400 Body mass index (BMI) [Ratio] 26.52 kg/m2 Rylee Henning Other [facility] [place] Other 06-02-2021 12:00-0400 Body temperature 98 [degF] Rylee Henning Other [facility] [place] Other 06-02-2021 12:00-0400 Body weight 65.77 kg Rylee Henning Other [facility] [place] Other 06-02-2021 12:00-0400 Respiratory rate 18 /min Rylee Henning Other [facility] [place] Other 06-02-2021 12:00-0400 SaO2% (BldA) [Mass fraction] 95 % Rylee Henning Other [facility] [place] Other Encounters Encounter Date Encounter Type Care Provider Facility Start: 05-06-2024 End: 05-06-2024 ambulatory CLEO EDMOND Not Available Start: 05-02-2024 End: 05-02-2024 ambulatory CLOE EDMOND Not Available Start: 04-30-2024 End: 04-30-2024 ambulatory CLEO EDMOND Not Available Start: 04-26-2024 End: 04-26-2024 ambulatory DYLON SARMIENTO Not Available Start: 04-18-2024 End: 04-18-2024 ambulatory CLEO EDMOND Not Available Start: 04-16-2024 End: 04-16-2024 ambulatory CLEO EDMOND Not Available Start: 04-10-2024 End: 04-10-2024 ambulatory CLEO EDMOND Not Available Start: 04-08-2024 End: 04-08-2024 ambulatory CLEO EDMOND Not Available Start: 04-04-2024 End: 04-04-2024 ambulatory CAROLINE PELLETIER Not Available Start: 04-04-2024 End: 04-04-2024 ambulatory CAROLINE PELLETIER Not Available Start: 03-04-2024 End: 03-04-2024 Admission to same day surgery center Caroline Pelletier [facility] Start: 03-04-2024 End: 03-04-2024 ambulatory Caroline Pelletier Facility:[facility] [place] [place] Start: 02-28-2024 End: 02-28-2024 ambulatory DYLON SARMIENTO Not Available Start: 02-21-2024 End: 02-21-2024 ambulatory DYLON Puentes HEMMER Not Available Start: 01-30-2024 End: 01-30-2024 ambulatory Caroline Pelletier Facility:[facility] [place] [place] Start: 01-30-2024 End: 01-30-2024 Patient encounter procedure Caroline Pelletier [facility] Start: 01-30-2024 End: 01-30-2024 ambulatory CAROLINE PELLETIER Not Available Start: 01-18-2024 End: 01-18-2024 ambulatory DYLON Puentes HEMMER Not Available Start: 01-01-2024 End: 01-01-2024 ambulatory Caroline Pelletier Facility:[facility] [place] [place] Start: 01-01-2024 End: 01-01-2024 Patient encounter procedure Caroline Pelletier [facility] Start: 12-28-2023 End: 12-28-2023 ambulatory CAROLINE PELLETIER Not Available Start: 09-27-2023 Bamboo flowsheet Dhiraj Bergman P T Work Phone: [facility] Start: 09-27-2023 Bamboo flowsheet Dhiraj Bergman P T Work Phone: [facility] Start: 09-27-2023 End: 09-27-2023 ambulatory Dhiraj Bergman PT Work Phone: [facility] Comment on above: Hip pain, right (Joy jose Dx); Right lumbar radiculopathy Start: 09-25-2023 Telephone encounter Valentine rodas SKEIN INSPECTOR Work Phone: [facility] Start: 09-22-2023 Bamboo flowsheet Dhiraj Bergman P T Work Phone: [facility] Start: 09-22-2023 Bamboo flowsheet Dhiraj Bergman P T Work Phone: [facility] Start: 09-22-2023 End: 09-22-2023 ambulatory DHIRAJ BERGMAN Not Available Start: 09-06-2023 End: 09-06-2023 ambulatory CAROLINE Saurabh PELLETIER Not Available Start: 08-01-2023 End: 08-01-2023 ambulatory CAROLINE Saurabh LIYAH Not Available Start: 12-15-2022 End: 12-16-2022 ambulatory VALENTINE JEROME Facility:[facility] Start: 12-02-2022 End: 12-02-[address] DEJON ZHOU Facility:[facility] Start: 06-02-2021 (URG) Urgent Care Visit Rylee bobby [facility] Urgent Care Demetrius Procedures Date Procedure Procedure Detail Performing Clinician Start: 03-04-2024 Repair of hip Caroline ritter Start: 05-12-2020 Hemiarthroplasty of left shoulder Caroline Pelletier Start: 12-09-2015 Decompression of med khoa nerve Caroline Pelletier Comment on above: right Start: 03-24-2015 left total hip arthr oplasty, press-fit, metal on polyethylene construct Caroline Pelletier Cholecystectomy Caroline alfred Dilation and curetta ge of uterus Caroline Pelletier lumbar laminectomyL4-5 2 Hood hamegan Pelletier Comment on above: 1989 Plan of Treatment Date Care Activity Detail Author Start: 04-08-2024 End: 04-08-2024 Patient encounter procedure 04/08/2024 10:50 AM EDT Office Visit [facility] [address] [place] [address] Soledad Mane APRN-[employer]ERE[employer]MENT SALESPERSON [address] [place] [address] [facility] Start: 10-05-2023 End: 10-05-2023 ambulatory 10/05/2023 10:15 AM EST Treatment [facility] [address] [place] [id number] Dhiraj Bergman, PT [address] [place] [phone] [facility] Start: 09-27-2023 End: 09-27-2023 ambulatory 09/27/2023 1:15 PM EST Treatment [facility] [address] [place] [id number] Dhiraj Bergman, PT [address] [place] [phone] [facility] Start: 09-22-2023 End: 09-22-2023 ambulatory 09/22/2023 10:45 AM EST Evaluation [facility] [address] [place] [phone] Dhiraj Bergman, PT [address] [place] [phone] Right hip pain (Primary Dx); Right lumbar radiculopathy; Hip pain, right [facility] Comment on above: Right hip pain (Prim leila Dx); Right lumbar radiculopathy; Hip pain, right Start: 04-14-2023 Influenza vaccination Influenza Vacc ine (#1) [facility] Start: 06-09-2004 Pneumococcal Vaccine : 65+ Years (2 - PCV) Pneumococcal Vaccine: 65+ Years (2 - PCV) [facility] Payers Date Payer Category Payer Private Health Insurance [employer] [facility] SUPPLEMENT [id number] 2023-Present [address] [place] [address] Supplement [id number] 2023 Private Health Insurance [id number] 2003 Medicare MEDICARE MEDICAR E RAILROAD [id number] 2003-Present LILIBETH [employer] RAILROAD MEDICARE [address] [address] [place] [address] Medicare [id number] 1959 Medicare [id number] 1940 Unknown [id number] 2.16.840.1.771069.3.579.2. 593 1940 Unknown [id number] 2.16.840.1.240764.3.579.2. 593 1938 Unknown [id number] 2.16.840.1.579034.3.579.2. 727 1940 Unknown [id number] 2.16.840.1.242284.3.579.2. 727 1938 Unknown [id number] 2.16.840.1.780626.3.579.2. 727 1938 Unknown [id number] 2.16.840.1.399535.3.579.2. 727 1938 Unknown [id number] 2.16.840.1.696226.3.579.2. 125 1938 Unknown [id number] 2.16.840.1.641652.3.579.2. 1259 1938 Unknown [id number] 2.16.840.1.692482.3.579.2. 125 1938 Unknown [id number] 2.16.840.1.262557.3.579.2. 125 1938 Unknown [id number] 2.16.840.1.085922.3.579.2. 125 1938 Unknown [id number] 2.16.840.1.281981.3.579.2. 125 1938 Unknown [id number] 2.16.840.1.641364.3.579.2. 1259 1938 Unknown [id number] 2.16.840.1.948361.3.579.2. 1259 1938 Unknown [id number] 2.16.840.1.782134.3.579.2. 1258 1938 Unknown [id number] 2.16.840.1.851194.3.579.2. 125 1938 Unknown [id number] 2.16.840.1.066322.3.579.2. 1258 1938 Unknown [id number] 2.16.840.1.465687.3.579.2. 1258 1938 Unknown [id number] 2.16.840.1.768238.3.579.2. 1258 1938 Unknown [id number] 2.16.840.1.852046.3.579.2. 1258 1938 Unknown [id number] 2.16.840.1.293278.3.579.2. 1258 1938 Unknown [id number] 2.16840.1.659795.3.579.2. 1258 1938 Unknown [id number] 2.16.840.1.249196.3.579.2. 1258 1938 Unknown [id number] 2.16.840.1.409421.3.579.2. 1258 1938 Unknown [id number] 2.840.1.729020.3.579.2. 1258 1938 Unknown [id number] 2.840.1.327739.3.579.2. 125 1938 Unknown [id number] 2.16840.1.945116.3.579.2. 1259 Private Health Insurance [id number] Medicare [id number] Private Health Insurance [id number] Social History Date Type Detail Facility Start: 08-01-2023 Sex Assigned At F [facility] Start: 03-25-2023 Tobacco smoking stat us WIIS Never smoked tobacco [facility] Start: 03-25-2023 Tobacco use and exposure Smokeless tobacco non-user [facility] Start: 08-01-2023 Alcohol intake Lifetime non-d louis (finding) [facility] Start: 08-01-2023 History of Social function [facility] Start: 03-25-2023 Alcohol Comment caffeine: 2-3 cups per day [facility] Start: 1940 Sex Assigned At Not on file [facility] Tobacco smoking status No Smokin g Status Entered [facility] Medical Equipment Procedure Code Equipment Code Equipment Original Text Equipment Identifier Dates SHOULDER HEMIARTHROPLASTY Abida Dhiraj 05/12/20 Non Biological Unknown {[id number] FDA Start: 05-12-2020 HIP TOTAL ARTHRO PLASTY Pelletier DO, Caroline Mederos 03/04/24 Unknown Hip R FDA Start: 03-04-2024 HIP TOTAL ARTHRO PLASTY Pelletier DO, Caroline Mederos 03/04/24 Unknown Hip R FDA Start: 03-04-2024 HIP TOTAL ARTHRO PLASTY Pelletier DO, Caroline Saurabh 03/04/24 Unknown Hip R FDA Start: 03-04-2024 HIP TOTAL ARTHRO PLASTY Pelletier DO, Caroline Saurabh 03/04/24 Unknown Hip R FDA Start: 03-04-2024 HIP TOTAL ARTHRO PLASTY Pelletier DO, Caroline Saurabh 03/04/24 Unknown Hip R FDA Start: 03-04-2024 HIP TOTAL ARTHRO PLASTY Pelletier DO, Caroline Saurabh 03/04/24 Unknown Hip R FDA Start: 03-04-2024 Functional Status Date Assessment Result Facility 01-30-2024 Functional Status No [facility] 01-01-2024 Functional Status N/A [facility] 12-28-2023 Functional Status Symptomatic Af ter Exposure to Contagion No [facility] Clinical Notes 06-02-2021 to 03-11-2024 Note Date & Type Note Facility 03-11-2024 Note Progress Note-Physic khoa Patient: TERESA SMALL Age: 83 years Sex: Female : 1940 Associated Diagnoses: None Author: Theo RIVERO CRNA, Queen N. Procedure Nerve Block Block Type: Gino block. [...] Using maximal sterile barrier technique per current [facility] guidelines including hand hygeine, Guidance (Ultrasound used [...] by Queen Theo CRNA under my supervision. [facility] Comment on above: Result Comment: Elec tronically Signed By: Theo RIVERO CRNA, Queen N.\.br\Date and Time Signed: 03/04/24 08:15 EDT wrong [...] list: All Problems Osteoarthritis / SNOMED CT 3463506556 / Confirmed Nocturia / SNOMED CT 968793655 / Confirmed HTN (hypertension) / SNOMED CT 2406300484 / Confirmed Sleep disturbance / SNOMED CT 09413588 / Confirmed Hematuria / SNOMED CT 916461056 / Confirmed Resolved: Thyroid nodule / SNOMED CT 799301054 Resolved: Carpal tunnel syndrome / SNOMED CT 86547129 Resolved: At risk for falls / SNOMED CT 114116272 Problem added when Risk for Falls Careplan was initiated. Resolved due to patient discharge. Histories Procedure history: Hemiarthroplasty of left shoulder (4767656839) on 05/12/2020 at 80 Years. Carpal tunnel release (748265058) on 12/09/2015 at 75 Years. Comments: 12/09/2015 16:44 Ct Fuentes RN right left total hip arthroplasty, press-fit, metal on polyethylene construct on 03/24/2015 at 74 Years. lumbar laminectomyL4-5. Comments: 03/10/2015 11:14 Tanesha Mack RN 1989 Cholecystectomy (91510370). D&C - Dilatation and curettage (3764288081). Social History Social & Psychosocial Habits Alcohol 03/04/2024 Risk Assessment: Denies Alcohol Use Substance Abuse 03/04/2024 Risk Assessment: Denies Substance Abuse Tobacco 03/04/2024 Risk Assessment: Denies Tobacco Use . Physical Examination Airway: Mallampati classification: II (soft palate, fauces, uvula visible). Respiratory: adequate air exchange. Cardiovascular: Regular rhythm. Plan [place] [employer] Anesthesiologists (ASA) physical status classification: Class II. Anesthetic Preoperative Plan: Anesthesia General. Regional Spinal. [facility] Comment on above: Result Comment: Elec [...] caregiver assist and Ortho 360 to follow [facility] 03-04-2024 Note Progress Note-Physic khoa Patient: TERESA SMALL Age: 83 years Sex: Female : 1940 Associated Diagnoses: None Author: Alex Humphries Jr, DO Postoperative Information Postoperative disposition: Postoperative disposition: To PACU. Optimetrix number: Optimetrix number [id number]. Anesthetic utilized: General. Regional: Spinal. Health Status [...] when meets criteria ( To home ). [facility] Comment on above: Result Comment: Elec tronically Signed By: Alex Humphries Jr, DO\.br\Date and Time Signed: 03/04/24 16:39 EDT 03-04-2024 Evaluation + Plan note Extrac desiree from: Title:ANES Post-operative Note---General Author: Alex Humphries Jr, DO Date:03/04/24 Plan Transfer/Discharge: Transfer/Discharge Discharge when meets criteria ( To home ). Extracted from: Title:ANES Pre-operative Note 2022 Author:Alex Humphries Jr, DO Date:03/04/24 Plan [place] [employer]esthesiologists (ASA) physical status classification: Class II. Anesthetic Preoperative Plan: Anesthesia General. Regional Spinal. [facility]07-22-2024 Hospital Discharge instructions Patient Education 03/04/2024 10:32:32 [...] as possible. If the spirometer includes a tennis coach indicator, use this to guide you [...] provider. Document Revised: 10/19/2020 Document Reviewed: 10/19/2020 [employer] Patient Education 2022 [employer] 02/29/2024 17:27:08 Pelletier - Hip Replacement Arthroplasty (CUSTOM) [place], [place] [facility] DISCHARGE INSTRUCTIONS HIP REPLACEMENT [...] will continue at home, possible with the contract assistant of Home Health Physical Therapy or in the hospital as an outpatient. When you have become independent withthe physical therapy program, this will then be discontinued as a supervised program and you will be instructed to continue the physical therapy exercises at home. Please call your 360 Advocate with any questions or concerns [phone] EXT [phone]. DRIVING: Driving is not recommended for 4-6 week pending progress. Driving too soon, you are considered an impaired bulk driver, and this could be a problem. It is therefore advised not to drive until after your first office visit following surgery FOLLOW-UP OFFICE VISIT: Caroline Pelletier, DO [facility] [address] [place] [address] Reviewed: 01-03 Follow Up Care 01/03/2024 15:09:44 With:MARIANA Stephens Address: [address] [place] [address]- Business (1) When:04/02/2024 10:30:00 Comments:Keep scheduled appointment [facility]07-22-2024 NotePatient Education - Text Pulmonary Medicine How [...] possible. ? If the spirometer includes a tennis coach indicator, use this to guide you [...] provider. Document Revised: 10/19/2020 Document Reviewed: 10/19/2020 [employer] Patient Education ? 2022 [employer]. [place], [place] [facility] DISCHARGE INSTRUCTIONS HIP REPLACEMENT ARTHROPLASTY INCISION CARE: Mepilex dressing can get wet with showers. Please remove 10 days after surgery per instruction sheet. If ronn present, please coordinate removal 21 days after surgery with office staff. Please notify the office if any increase in redness, tenderness, draina (more content not included)...[facility]07-22-2024 NoteProgress Note-Physician Patient: TERESA SMALL Age: 83 years Sex: Female : 1940 Associated Diagnoses: None Author: Theo RIVERO CRNA, Queen N. Procedure Nerve Block Block Type: Gino block. [...] Using maximal sterile barrier technique per current [facility] guidelines including hand hygeine, Guidance (Ultrasound used [...] completed by Queen Theo CRNA under my supervision.[facility] Comment on above:Result Comment: Electronically Signed By: Theo RIVERO CRNA, Queen Estelle\.br\Date and Time Signed: 03/04/24 08:15 [id number] NotePatient Education - Text [place], [place] [facility] DISCHARGE INSTRUCTIONS HIP REPLACEMENT [...] will continue at home, possible with the contract assistant of Home Health Physical Therapy or in the hospital as an outpatient. When you have become independent withthe physical therapy program, this will then be discontinued as a supervised program and you will be instructed to continue the physical therapy exercises at home. Please call your 360 Advocate with any questions or concerns [phone] EXT [phone]. DRIVING: Driving is not recommended for 4-6 week pending progress. Driving too soon, you are considered an impaired bulk driver, and this could be a problem. It is therefore advised not to drive until after your first office visit following surgery FOLLOW-UP OFFICE VISIT: Caroline Pelletier, DO [facility] [address] [place] [address] Reviewed: 01-03[facility]05-16-2024 Hospital Discharge instructions Follow Up Care 12/28/2023 11:47:11 With:Caroline Pelletier Address: [address] [place] [address]- Business (1) When: Unknown Comments:Keep scheduled appointment [facility]05-16-2024 Note [id number] [facility] 09-25-2023 Telephone encounter Note* Telephone Encounter - Iesha Alcantara MA - 09/25/2023 8:18 AM EST Pt daughter called stated PT and dr. duffy suggested she get some mobic to help to help with her muscle aches, arthritis is agreeable please send script to [facility] [id number] Miscellaneous Notes* Telephone Encounter - Iesha Alcantara MA - 09/25/2023 8:18 AM EST Pt daughter called stated PT and dr. duffy suggested she get some mobic to help to help with her muscle aches, arthritis is agreeable please send script to [facility] documented in this encounterPhelps [id number] Evaluation note* Encounter Date Diagnosis Assessment Notes [...] Patient care instructions given in writting by [facility] Care At Home document. [facility] [employer] Other Evaluation + Plan note No data available for this section [facility] Future Appointments Appointment Date:03/04/2024 11:15:00 AM Scheduled Provider: Location:[facility] Diagnosis Osteoarthritis, unspecified osteoarthritis type, unspecified [...] NODULES Medical History IGT Surgical History GALLBLADDER 1973 Surgical History BACK SURGERY 1988 Hospitalization History SEE ABOVE SURGERY Hospitalization History CHILD X'S [place] [employer] Other Hospital Discharge instructions No data available for this section [facility] No data available for this section [facility] Summary Purpose Family History No Family History [...] content) Specialty Diagnoses / Procedures Referred By Michelle mederos Referred To Contact Physical Therapy Diagnoses Hip pain, right Procedures MO OFFICE/OUTPATIENT NEW HIGH MDM 60 MINUTES Caroline Pelletier, DO [address] [facility] [place] [address] Dhiraj Bergman, PT [address] [place] [address] Referral ID Status Reason Start Date Expiration Date Visits Requested Visits Authorized [id number] Authorized Specialty Services Required 09/14/2023 03/12/2024 30 30 INFORMATION SOURCE (unrecogn ized section and content) DATE CREATED AUTHOR 12/22/2022 [facility] DATE CREATED AUTHOR AUTHOR'S ORGANIZ ATION 01/31/2024 [facility] DATE CREATED AUTHOR AUTHOR'S ORGANIZ ATION 03/04/2024 [facility] DATE CREATED AUTHOR AUTHOR'S ORGANIZ ATION 03/06/2024 [facility] DATE CREATED AUTHOR AUTHOR'S ORGANIZ ATION 03/13/2024 [facility] DATE CREATED AUTHOR AUTHOR'S ORGANIZ ATION 05/08/2024 [facility] EPIC Care Teams (unrecognized sec tion and content) Supervisor Lime Relationship Specialty Start Date End Date Dejon Zhou MD [address] [facility] [address] [place] [address] PCP - General Internal Medicine 03/09/23 Supervisor Lime Relationship Specialty Start Date End Date Dejon Zhou MD [address] [facility] [address] [place] [address] PCP - General Internal Medicine 03/09/23 Supervisor Lime Relationship Specialty Start Date End Date Dejon Zhou MD [address] [facility] [address] [place] [address] PCP - General Internal Medicine 03/09/23 Supervisor Lime Relationship Specialty Start Date End Date Dejon Zhou MD [address] [facility] [address] [place], [place] [id number] PCP - General Internal Medicine 03/09/23 FOR [...] BE BASED ON THE PRIMARY CLINICAL RECORDS. [facility] [employer] [facility]. provides no warranty or guarantee of the accuracy or completeness of information in this document.
--- NOTE | 2024-05-22 15:41 | ED_ITS ---
HPI HPI - General Adult General Chief complaint: Extremity Injury, Upper Stated complaint: UPPER EXTREMITY PAIN Time Seen by Provider: 05/22/24 12:18 Source: family Mode of arrival: walk-in Limitations: no limitations History of Present Illness HPI narrative: Patient presents to ED complaining of left wrist pain. She recently got a hip replacement and she said for about 4 weeks straight she would have to use her left arm to push herself up Off of the couch every day. She lives alone at home so she would constantly have to use her arm to push herself up. She said over that time. She developed severe left wrist pain and the pain would radiate up the left forearm into the elbow. She said she has been seen for this before and did get some x-rays which showed arthritis but no other acute findings. She has tried various splints and wraps at home without any success. She has been taking some Tylenol and ibuprofen but has not really been helping. She was concerned so she came back in for further evaluation. She has not had any follow-up with orthopedic surgery. Related Data Previous Rx's ?Medication ?Instructions ?Recorded amlodipine 2.5 mg tablet 2.5 mg PO DAILY #7 tabs 01/14/24 Allergies Allergy/AdvReac Type Severity Reaction Status Date / Time No Known Drug Allergies Allergy Verified 01/14/24 12:23 Opioid HPI Opioid Management Most Recent Opioid Data: No Data to Display Review of Systems ROS Status of ROS 10 or more systems reviewed and unremark able except as noted in history and below PFSH PFSH Social History Little interest or pleasure in doing things: not at all Feeling down, depressed, or hopeless: not at all Exam Narrative Exam Narrative: General: alert, no acute distress Cardiovascular: regular rate and rhythm, normal peripheral perfusion. Respiratory: Lungs CTA, respirations non labored. Extremities: Tenderness Eyes: To palpation diffusely in the wrist. Positive Phalen's test. Tenderness when performing de Quervain's tenosynovitis test. No numbness or tingling into the hand or fingers. Normal pulses. Neurological: oriented x 4, LOC appropriate for age. Constitutional Vital Signs, click to edit/add: Last Vital Signs Temp 97.6 F 05/22/24 12:19 Pulse 84 05/22/24 12:19 Resp 18 05/22/24 12:19 BP 163/81 H 05/22/24 12:19 Pulse Ox 99 05/22/24 12:19 O2 Del Method Room Air 05/22/24 12:19 Course Vital Signs Vital signs: Vital Signs Temperature 97.6 F 05/22/24 12:19 Pulse Rate 84 05/22/24 12:19 Respiratory Rate 18 05/22/24 12:19 Blood Pressure 163/81 H 05/22/24 12:19 Pulse Oximetry 99 05/22/24 12:19 Oxygen Delivery Method Room Air 05/22/24 12:19 Temperature 97.6 F 05/22/24 12:19 Pulse Rate 84 05/22/24 12:19 Respiratory Rate 18 05/22/24 12:19 Blood Pressure 163/81 H 05/22/24 12:19 Pulse Oximetry 99 05/22/24 12:19 Oxygen Delivery Method Room Air 05/22/24 12:19 Medical Decision Making MDM Narrative Medical decision making narrative: Most likely an overuse injury and issue. Most likely tendinitis such as de Quervain's tenosynovitis also some signs of carpal tunnel syndrome. Patient needs orthopedic follow-up. Patient was given a Velcro wrist splint here in ED. Patient was counseled to wear it most of the time especially at night. Continue Tylenol and Motrin and rest of the left wrist. Return to ED if worsening symptoms otherwise we made an appointment for her with Dr. Ellis on Monday at 11 AM. Patient expresses understanding is comfortable care plan for home Differential Diagnosis Differential Diagnosis: De Quervain's tenosynovitis, carpal tunnel syndrome, wrist sprain Discharge Plan Discharge Chief Complaint: Extremity Injury, Upper Clinical Impression: Left wrist sprain Patient Disposition: Home, Self-Care Time of Disposition Decision: 13:13 Condition: Good Mode of Transportation: Private Vehicle Prescriptions / Home Meds: No Action amlodipine 2.5 mg tablet 2.5 mg PO DAILY Qty: 7 0RF Print Language: [place] Rican Referrals: CONCEPCIÓN DELGADO [Primary Care Provider] - 1 week Javier Ellis MD [Physician] - 05/27/24 11:00 am Discharge Date/Time: 05/22/24 13:25
== END 2024-05-22 13:25 | disposition home or self-care (01) ==
PROVIDERS: Emergency Provider Emergency Medicine; PCP Internal Medicine
DX: S63.502A Unspecified sprain of left wrist, initial encounter (principal); X50.9XXA Other and unspecified overexertion or strenuous movements or postures, initial encounter
CPT/HCPCS: 99283